=== PATIENT | male | born 1945 | race Caucasian/White ===

== ENCOUNTER 2020-01-18 10:34 | Outpatient (REF) | payer MEDICARE, SELFPAY ==
--- NOTE | 2020-01-18 10:36 | XR_ITS ---
EXAMINATION: KNEE X-RAY CLINICAL INFORMATION: Post left knee replacement COMPARISON: Previous x-rays most recent September 2019. TECHNIQUE: Standing AP view of both knees and lateral view of the left knee FINDINGS: Left: There is a 3 component left knee replacement in satisfactory position. No fracture or dislocation is seen. There is a moderate joint effusion. There is evidence of mild atherosclerotic disease. Standing AP view of the right knee demonstrates degenerative change at the medial femoral tibial joint. XR/XR knee LT 2V IMPRESSION: Left: Satisfactory appearance of left knee replacement. Moderate joint effusion. Right: Degenerative changes at the medial femoral tibial joint.
--- NOTE | 2020-01-18 10:36 | XR_ITS ---
EXAMINATION: KNEE X-RAY CLINICAL INFORMATION: Post left knee replacement COMPARISON: Previous x-rays most recent September 2019. TECHNIQUE: Standing AP view of both knees and lateral view of the left knee FINDINGS: Left: There is a 3 component left knee replacement in satisfactory position. No fracture or dislocation is seen. There is a moderate joint effusion. There is evidence of mild atherosclerotic disease. Standing AP view of the right knee demonstrates degenerative change at the medial femoral tibial joint. XR/XR knee standing BI IMPRESSION: Left: Satisfactory appearance of left knee replacement. Moderate joint effusion. Right: Degenerative changes at the medial femoral tibial joint.
== END 2020-01-18 10:35 | disposition home or self-care (01) ==
LOC: HO.HOSX 10:34
PROVIDERS: PCP Internal Medicine; Visit Provider Orthopaedic Surgery
DX: M25.562 Pain in left knee (principal); M25.561 Pain in right knee; Z96.652 Presence of left artificial knee joint
CPT/HCPCS: 73560; 73565; 99212

== ENCOUNTER → 2020-01-24 09:47 | Outpatient (BNVA) | payer MEDICARE, SELFPAY | PROVIDERS: PCP Internal Medicine; Referring Provider Internal Medicine; Visit Provider Internal Medicine | DX: J44.9 Chronic obstructive pulmonary disease, unspecified (principal); J30.9 Allergic rhinitis, unspecified; F17.210 Nicotine dependence, cigarettes, uncomplicated | CPT/HCPCS: 99212 ==

== ENCOUNTER 2020-04-24 09:06 | Outpatient (REF) | payer MEDICARE, SELFPAY ==
[2020-04-24 12:42] LABS: Alanine Aminotransferase 11 U/L (0-40); Albumin Level 4.2 g/dL (3.5-5.0); Alkaline Phosphatase 71 U/L (39-117); Anion Gap 12 (12-20); Aspartate Amino Transferase 17 U/L (5-37); Bilirubin Direct 0.4 mg/dL (0.0-0.5); Bilirubin Total 0.9 mg/dL (0.0-1.0); Blood Urea Nitrogen 10 mg/dL (9-16); C Reactive Protein 0.12 mg/dL (< or = 0.50); Calcium 9.1 mg/dL (8.4-10.2); Carbon Dioxide 27 mmol/L (22-29); Chloride 102 mmol/L (96-108); Cholesterol 174 mg/dL; Estimated Glomerular Filt Rate > 60; Glucose Random 95 mg/dL (60-115); HDL Cholesterol 51 mg/dL; LDL Cholesterol Calculated 109 mg/dl; Potassium 4.7 mmol/L (3.3-5.1); Sodium 136 mmol/L (135-145); Total Protein 6.9 g/dL (6.5-8.0); Triglycerides 73 mg/dL
== END 2020-04-24 09:07 | disposition home or self-care (01) ==
LOC: HO.HMGCLDS 09:06
PROVIDERS: PCP Internal Medicine; Visit Provider Internal Medicine
DX: J44.9 Chronic obstructive pulmonary disease, unspecified (principal)
CPT/HCPCS: 36415; 80048; 80061; 80076; 86140

== ENCOUNTER → 2020-04-25 08:57 | Outpatient (BNVA) | payer MEDICARE, SELFPAY | PROVIDERS: PCP Internal Medicine; Visit Provider Orthopaedic Surgery | DX: Z47.1 Aftercare following joint replacement surgery (principal); Z96.652 Presence of left artificial knee joint | CPT/HCPCS: 99212 ==

== ENCOUNTER 2020-06-19 11:40 | Outpatient (REF) | payer MEDICARE, SELFPAY ==
--- NOTE | ~2020-06-19 | XR_ITS ---
EXAMINATION: XR SINUSES CLINICAL INFORMATION: Sinusitis COMPARISON: None TECHNIQUE: Calixto, Nieves, lateral, and SMV views of the sinuses FINDINGS: Paranasal sinuses appear clear without air-fluid levels. No fractures are identified. No radiodense foreign bodies. The mastoid air cells appear well-aerated. XR/XR sinus min 3V IMPRESSION: The paranasal sinuses appear clear.
== END 2020-06-19 11:41 | disposition home or self-care (01) ==
LOC: HO.XRAY 11:40
PROVIDERS: PCP Internal Medicine; Visit Provider Otolaryngology
DX: J32.9 Chronic sinusitis, unspecified (principal)
CPT/HCPCS: 70220

== ENCOUNTER → 2020-07-24 10:03 | Outpatient (BNVA) | payer MEDICARE, SELFPAY | PROVIDERS: PCP Internal Medicine; Visit Provider Internal Medicine | DX: J44.9 Chronic obstructive pulmonary disease, unspecified (principal); J30.9 Allergic rhinitis, unspecified; F17.200 Nicotine dependence, unspecified, uncomplicated; Z71.6 Tobacco abuse counseling; Z79.899 Other long term (current) drug therapy | CPT/HCPCS: 99212 ==

== ENCOUNTER 2020-08-08 07:28 | Outpatient (REF) | payer MEDICARE, SELFPAY ==
--- NOTE | ~2020-08-08 | XR_ITS ---
EXAMINATION: KNEE X-RAY CLINICAL INFORMATION: Knee replacement. COMPARISON: Previous x-ray January 2020 TECHNIQUE: Standing AP view of both knees and lateral view of the left knee FINDINGS: Left knee: There is a 3 component left knee replacement in satisfactory position. No fracture or dislocation is seen. There is a small to moderate joint effusion. Standing AP view of the right knee demonstrates joint space narrowing at the medial femoral tibial joint and degenerative meniscal calcification. XR/XR knee LT 2V IMPRESSION: Satisfactory appearance of left knee replacement.
--- NOTE | ~2020-08-08 | XR_ITS ---
EXAMINATION: KNEE X-RAY CLINICAL INFORMATION: Knee replacement. COMPARISON: Previous x-ray January 2020 TECHNIQUE: Standing AP view of both knees and lateral view of the left knee FINDINGS: Left knee: There is a 3 component left knee replacement in satisfactory position. No fracture or dislocation is seen. There is a small to moderate joint effusion. Standing AP view of the right knee demonstrates joint space narrowing at the medial femoral tibial joint and degenerative meniscal calcification. XR/XR knee standing BI IMPRESSION: Satisfactory appearance of left knee replacement.
== END 2020-08-08 07:29 | disposition home or self-care (01) ==
LOC: HO.HOSX 07:28
PROVIDERS: Visit Provider Orthopaedic Surgery
DX: M25.562 Pain in left knee (principal); M25.561 Pain in right knee; J44.9 Chronic obstructive pulmonary disease, unspecified; C61 Malignant neoplasm of prostate; Z87.891 Personal history of nicotine dependence; Z96.652 Presence of left artificial knee joint; Z88.8 Allergy status to other drugs, medicaments and biological substances
CPT/HCPCS: 73560; 73565; 99212

== ENCOUNTER 2020-08-29 06:11 | Outpatient (REF) | payer MEDICARE, SELFPAY ==
[2020-08-29 11:57] LABS: Alanine Aminotransferase 13 U/L (0-40); Albumin Level 4.1 g/dL (3.5-5.0); Alkaline Phosphatase 68 U/L (39-117); Anion Gap 13 (12-20); Aspartate Amino Transferase 17 U/L (5-37); Bilirubin Total 0.6 mg/dL (0.0-1.0); Blood Urea Nitrogen 7 mg/dL (9-16); Calcium 9.1 mg/dL (8.4-10.2); Carbon Dioxide 25 mmol/L (22-29); Chloride 103 mmol/L (96-108); Cholesterol 165 mg/dL; Estimated Glomerular Filt Rate > 60; Glucose Fasting 91 mg/dL (60-99); HDL Cholesterol 54 mg/dL; LDL Cholesterol Calculated 93 mg/dl; Potassium 4.9 mmol/L (3.3-5.1); Sodium 136 mmol/L (135-145); Total Protein 6.6 g/dL (6.5-8.0); Triglycerides 92 mg/dL
[2020-08-29 12:29] LABS: TSH reflex Free T4 3.52 uIU/mL (0.32-4.0)
== END 2020-08-29 06:12 | disposition home or self-care (01) ==
LOC: HO.HMGCLDS 06:11
PROVIDERS: PCP Nurse Practitioner Family; Visit Provider Nurse Practitioner Family
DX: E78.5 Hyperlipidemia, unspecified (principal)
CPT/HCPCS: 36415; 80053; 80061; 84443

== ENCOUNTER 2020-09-08 08:18 | Outpatient (REF) | payer MEDICARE, SELFPAY ==
--- NOTE | ~2020-09-08 | XR_ITS ---
EXAMINATION: XR KNEE, LEFT CLINICAL INFORMATION: Pain in the right knee COMPARISON: Left knee radiographs on 08/08/2020 TECHNIQUE: AP standing views of the bilateral knees, lateral view of the left knee FINDINGS: Left knee: Postsurgical changes from prior left knee arthroplasty. No acute fracture or dislocation. Small suprapatellar joint effusion. Right knee: Mild medial compartment joint space narrowing. XR/XR knee standing BI IMPRESSION: Stable appearance of the left knee replacement.
--- NOTE | ~2020-09-08 | XR_ITS ---
EXAMINATION: XR KNEE, LEFT CLINICAL INFORMATION: Pain in the right knee COMPARISON: Left knee radiographs on 08/08/2020 TECHNIQUE: AP standing views of the bilateral knees, lateral view of the left knee FINDINGS: Left knee: Postsurgical changes from prior left knee arthroplasty. No acute fracture or dislocation. Small suprapatellar joint effusion. Right knee: Mild medial compartment joint space narrowing. XR/XR knee LT 2V IMPRESSION: Stable appearance of the left knee replacement.
== END 2020-09-08 08:19 | disposition home or self-care (01) ==
LOC: HO.XRAY 08:18
PROVIDERS: PCP Nurse Practitioner Family; Visit Provider Orthopaedic Surgery
DX: M25.562 Pain in left knee (principal); M25.561 Pain in right knee; F17.210 Nicotine dependence, cigarettes, uncomplicated; Z96.652 Presence of left artificial knee joint
CPT/HCPCS: 20610; 73560; 73565; 99212; J1040

== ENCOUNTER → 2021-01-23 09:49 | Outpatient (BNVA) | payer MEDICARE, SELFPAY | PROVIDERS: PCP Nurse Practitioner Family; Visit Provider Internal Medicine | DX: J30.9 Allergic rhinitis, unspecified (principal); J44.9 Chronic obstructive pulmonary disease, unspecified; F17.200 Nicotine dependence, unspecified, uncomplicated | CPT/HCPCS: 99212 ==

== ENCOUNTER 2021-03-07 08:10 | Outpatient (REF) | payer MEDICARE, SELFPAY ==
--- NOTE | ~2021-03-07 | CT_ITS ---
EXAMINATION: CT CHEST SCREENING CLINICAL INFORMATION: Nicotine dependence. Current smoker, 2 PPD, 20-pack years. COMPARISON: Chest x-ray 03/15/2019. TECHNIQUE: Multidetector volumetric CT imaging of the chest is performed without contrast using low dose technique. Additional 2D coronal and sagittal reformatted images and axial 3D maximum intensity projection (MIP) images are generated on the CT workstation. This CT examination was performed using dose optimization techniques as appropriate, variously including the following: *Automated exposure control *Adjustment of mA and/or kV according to patient size (this includes techniques or standardized protocols for targeted exams where dose is matched to indication/reason for exam; i.e. extremities or head) *Use of iterative reconstruction technique DLP: 61 mGy-cm. FINDINGS: LUNGS: The lungs are hyperinflated with a subpleural 3 mm nodule right upper lobe axial image 18/4, ill-defined ground-glass nodule measuring 4 mm axial image 212/6, mild compressive atelectasis right lower lobe. MEDIASTINUM: The thyroid lobes are symmetric and normal. The central trachea and the bronchi widely patent. The heart size and the great vessels are normal caliber. There are coronary artery calcifications present. There is no pericardial effusion seen. PLEURA: There is no pleural effusion. No pleural mass or thickening. AXILLA: There are small shotty lymph nodes in the axilla. UPPER ABDOMEN: Visualized liver, spleen and bilateral adrenal glands are unremarkable. There is a radiopaque gallstone with a soft tissue mass in the mid segment with the solid lesion appearing 1.76 cm. OSSEOUS STRUCTURES: No lytic or sclerotic process seen. There is mild ventral spondylosis. CT/CT lung screening IMPRESSION: Hyperinflated lungs with small nodules. No abnormal mediastinal adenopathy. ASSESSMENT: Lung-RADS category 2: Benign RECOMMENDATION: Low-dose annual CT chest
== END 2021-03-07 08:11 | disposition home or self-care (01) ==
LOC: HO.CT 08:10
PROVIDERS: Visit Provider Physician Assistant Medical
DX: Z12.2 Encounter for screening for malignant neoplasm of respiratory organs (principal); F17.210 Nicotine dependence, cigarettes, uncomplicated
CPT/HCPCS: 71271

== ENCOUNTER 2021-03-29 07:21 | Outpatient (REF) | payer MEDICARE, SELFPAY ==
--- NOTE | ~2021-03-29 | XR_ITS ---
EXAMINATION: XR KNEE, LEFT CLINICAL INFORMATION: Left knee pain COMPARISON: September 08, 2020 TECHNIQUE: Three views of the left knee. FINDINGS: Patient is status post left total knee arthroplasty. Prosthetic components appear in good position. No acute fracture or dislocation is evident. No significant effusion is seen. No evidence of prosthetic loosening. XR/XR knee LT 3V IMPRESSION: Status post left total knee arthroplasty without significant abnormality appreciated.
[2021-03-29 11:21] LABS: MANUAL DIFF FLAG NO
[2021-03-29 11:26] LABS: Basophils Percent Auto 0.3 % (0-2); Eosinophils Absolute Auto 0.1 X10*3/uL (0.0-0.4); Eosinophils Percent Auto 1.6 % (0-4); Hematocrit 44.5 % (42.0-52.0); Hemoglobin 14.8 g/dl (14.0-18.0); Imm Gran Abs Auto 0.03 X10*3/uL (0.00-0.03); Imm Gran Pct Auto 0.3 % (0.0-0.4); Lymphocytes Absolute Auto 2.4 X10*3/uL (1.2-4.9); Lymphocytes Percent Auto 26.9 % (20-40); Mean Corpuscular HGB Conc 33.3 g/dl (31.0-36.0); Mean Corpuscular Volume 96.3 fL (80.0-98.0); Mean Platelet Volume 8.9 fL (9.4-12.4); Monocytes Absolute Auto 0.9 X10*3/uL (0.1-1.2); Monocytes Percent Auto 9.6 % (2-11); Neutrophils Absolute Auto 5.4 x10*3/uL (2.0-8.3); Neutrophils Percent Auto 61.3 % (45-73); Platelet Count 345 X10*3/uL (160-400); Red Blood Count 4.62 X10*6/uL (4.60-5.80); White Blood Count 8.9 X10*3/uL (4.8-10.8)
[2021-03-29 11:36] LABS: Appearance Urine CLEAR; Color Urine YELLOW; Glucose Urine UA NEG (NEG); Leukocyte Esterase Urine NEG (NEG); Nitrite Urine NEG (NEG); Urine Blood NEG (NEG); Urine Ketones NEG (NEG); Urine Protein NEG (NEG-TRACE)
[2021-03-29 12:05] LABS: Alanine Aminotransferase 12 U/L (0-40); Alkaline Phosphatase 67 U/L (39-117); Anion Gap 11 (12-20); Aspartate Amino Transferase 18 U/L (5-37); Bilirubin Total 0.6 mg/dL (0.0-1.0); Blood Urea Nitrogen 11 mg/dL (9-16); Calcium 9.4 mg/dL (8.4-10.2); Carbon Dioxide 27 mmol/L (22-29); Chloride 102 mmol/L (96-108); Cholesterol 171 mg/dL; Estimated Glomerular Filt Rate > 60; Glucose Fasting 99 mg/dL (60-99); HDL Cholesterol 50 mg/dL; LDL Cholesterol Calculated 103 mg/dl; Potassium 4.6 mmol/L (3.3-5.1); Sodium 135 mmol/L (135-145); Total Protein 6.7 g/dL (6.5-8.0); Triglycerides 92 mg/dL
[2021-03-29 12:19] LABS: TSH reflex Free T4 3.78 uIU/mL (0.32-4.0)
== END 2021-03-29 07:22 | disposition home or self-care (01) ==
LOC: HO.HMGCLDS 07:21
PROVIDERS: PCP Nurse Practitioner Family; Visit Provider Nurse Practitioner Family
DX: M25.562 Pain in left knee (principal); I10 Essential (primary) hypertension
CPT/HCPCS: 36415; 73562; 80053; 80061; 81003; 84443; 85025

== ENCOUNTER → 2021-06-18 08:29 | Outpatient (BNVA) | payer MEDICARE, SELFPAY | PROVIDERS: PCP Nurse Practitioner Family; Referring Provider Nurse Practitioner Family; Visit Provider Internal Medicine | DX: I35.8 Other nonrheumatic aortic valve disorders (principal); I44.0 Atrioventricular block, first degree; R07.2 Precordial pain | CPT/HCPCS: 99202 ==

== ENCOUNTER → 2021-07-25 10:25 | Outpatient (BNVA) | payer MEDICARE, SELFPAY | PROVIDERS: PCP Nurse Practitioner Family; Visit Provider Internal Medicine | DX: J44.9 Chronic obstructive pulmonary disease, unspecified (principal); J30.9 Allergic rhinitis, unspecified; F17.210 Nicotine dependence, cigarettes, uncomplicated | CPT/HCPCS: 99212 ==

== ENCOUNTER → 2021-07-26 08:18 | Outpatient (REF) | payer MEDICARE, SELFPAY ==
--- NOTE | 2021-07-26 08:24 | CA_ITS ---
Transthoracic Echocardiogram Patient (Last, First, Middle): [place] Briscoe T Gender: Male Date of : 1945 Age: 75 Procedure Date: 07/26/2021 Procedure Type: Transthoracic Echocardiogram Location: OP Height: 172.72 cm Weight: 80.74 kg BSA: 1.95 m2 Heart Rate: bpm BP: 167 / 72 mmHg Rotary Drum Dyer: YON Referring MD: De Barclay MD Rn Unit Manager: Clyde Guerra MD Symptoms: R01.1 - Cardiac murmur, unspecified Study Quality: Adequate ECG Rhythm: Bradycardia Conclusions: - 1. Normal LV systolic function 2. Normal cardiac valvular Doppler 3. Normal RV systolic pressure 4. No pericardial effusion Findings Left Ventricle Normal left ventricular size, thickness, and systolic function. The visually estimated ejection fraction is between 60-65%. Spectral Doppler is indicative of a normal filling pattern. Peak GLS is -20.2%. Right Ventricle Normal right ventricular cavity size and systolic function. Atria The left atrium is likely dilated. There is no evidence of interatrial shunt. The right atrium is normal in size. Aortic Valve There is mild calcification of the aortic valve. There is no aortic valve stenosis. The mean gradient is 4 mmHg. There is no aortic valve regurgitation. Mitral Valve Normal mitral valve structure and function. There is trace mitral valve regurgitation. There is no mitral valve stenosis. Pulmonic Valve The pulmonic valve was not well visualized. Tricuspid Valve Likely normal tricuspid valve structure and function. There is trace tricuspid valve regurgitation. The right ventricular systolic pressure is normal. The right ventricular systolic pressure is 26 mmHg. Normal right atrial pressure. Great Vessels All visible segments of the aorta are normal in size. The pulmonary artery was not well visualized. Venous The inferior vena cava is normal in size and collapses greater than 50% with inspiration. Pericardium/Pleural There is no evidence of pericardial effusion. Prior Study Comparison No prior study available for comparison. Measurements 2D Linear Measurements IVSd: 0.81 0.6-0.9/0.6-1.0 cm LVIDd: 4.90 3.9-5.3/4.2-5.9 cm LVIDd Index: 2.51 2.4-3.2/2.2-3.1 cm/m2 LVIDs: 2.70 2.0-3.6 cm LVPWd: 0.79 0.7-1.1 cm LA Diam: 3.20 2.7-3.8/3.0-4.0 cm LAIDs Index: 1.64 1.5-2.3 cm/m2 LV Mass: 162.86 67-162/88-224 g LV Mass Index: 83.52 43-95/49-115 g/m2 LVOT Diam: 2.20 3.0+(-)1.3 cm 2D Systolic Function EF 4C: 61.90 >55% EF 2C: 61.00 >55% EF BiP: 61.00 >55% Mitral Valve MV Pk E: 0.89 MV PK A: 0.49 MV Decel Time: 199.00 E/A: 1.80 E'Lateral: 8.38 E'Medial: 7.72 E/E' Med: 11.50 E/E' Lat: 10.60 PHT: 58.00 MVA PHT: 3.79 Decel Sutter: 4.48 Aortic Valve AoV Pk Jesse: 1.35 AoV Mn Jesse: 0.93 AoV VTI: 0.30 AoV Pk Grad: 7.00 Aov Mn Grad: 4.00 ZACKERY Cont.VTI: 3.91 LVOT LVOT Pk Jesse: 1.42 LVOT Mn Jesse: 1.04 LVOT VTI: 0.31 LVOT Pk Grad: 8.00 LVOT Mn Grad: 5.00 LVOT Diam: 2.20 LVOT Area: 3.80 Diastolic Function MV Pk E: 0.89 MV Pk A: 0.49 E/A: 1.80 E'Medial: 7.72 E/E' Med: 11.50 E' Laterial: 8.38 E/E' Lat: 10.60 Right Ventricle TAPSE (mm): 26.40 TVS' Jesse: 11.90 Tricuspid Valve TR Pk Jesse: 2.38 TR Pk Grad: 23.00 RA Press: 3.00 RVSP: 26.00 Great Vessels Aorta Sinus of Valsalva: 3.48 2.0-3.[address] Ridge: 3.16 1.7-3.4 cm Ao Asc: 3.00 2.1-3.4 cm Pulmonary Veins Pulm Vein S/D 1.30 Pulmonary Valve PV Pk Jesse: 1.41 Peak PV Grad: 8.00 Updated in Other Vendor System with Status of Final Clyde Guerra MD electronically signed on 07/27/2021 4:06:01 PM with status of Final
== END ==
LOC: HO.CARD 08:18
PROVIDERS: PCP Nurse Practitioner Family; Visit Provider Nurse Practitioner Family
DX: R01.1 Cardiac murmur, unspecified (principal)
CPT/HCPCS: 93306; 93356

== ENCOUNTER → 2021-08-01 08:18 | Outpatient (REF) | payer MEDICARE, SELFPAY ==
--- NOTE | ~2021-08-01 | NM_ITS ---
Myocardial perfusion study Indication: Precordial chest pain to evaluate for myocardial ischemia Technique: The patient was brought in for a Lexiscan perfusion study on 08/01/2021. Patient performed low-level exercise and was injected 0.4 mg of Lexiscan intravenously. Within a minute of injection, 25 mCi of sestamibi was given intravenously. Images were obtained using the SPECT gamma camera interlaced with the gating device. Images were obtained in supine position. Resting perfusion study was performed on 08/02/2021. Patient was administered 25 mCi of sestamibi intravenously at rest. Images were then obtained in supine position. Images obtained with and without CT attenuation. Total DLP 78 mGy-cm. Images were processed with the software and compared side to side in short axis, horizontal long axis and vertical long axis views. Findings: The stress perfusion study showed non attenuated images show mildly reduced uptake in the inferior wall of the LV myocardium. Remainder of the LV myocardium is normally perfused. Attenuation corrected images show minimally reduced uptake in the apex of the LV myocardium. Remainder of the LV myocardium on both. There is suggestion of left ventricular hypertrophy. The gated study shows normal LV systolic function with calculated LVEF of 57%. LV cavity is normal in size. The gated study shows normal systolic wall thickening and contraction of segments. Resting study shows no significant change in perfusion pattern compared to stress perfusion study. Gating at rest reveals normal systolic wall motion with ejection fraction at 55%. The findings are consistent with no clear reversible defect, oral findings are consistent with normal myocardial perfusion. NM/NM cardiolite stress test Impression: 1. Myocardial perfusion imaging study shows normal myocardial perfusion 2. Gated LVEF is 57% 3. Transient ischemic dilatation not present EKG is nondiagnostic for ischemia
--- NOTE | 2021-08-01 08:21 | CA_ITS ---
Acquisition Time: 2021-08-01 08:26:41 Total Exercise Time: 00:02:00 Test Indications: CHEST PAIN Medications: Protocol: LEXISCAN Max HR: 085 BPM 58% of Pred: 145 BPM Max BP: 148/076 mmHG Max Work Load: 1.0 METS Pharmacological stress test with Lexiscan injection, while sitting and kicking his legs, without anginal symptoms, without arrythmia, with nomotensive response to injection, with nondiagnostic EKG for ischemia. In recovery he reported fuzzy head and was treated with Aminophylline 75mg IVP to reverse Lexiscan with resolution of symptom. Nuclear images pending. Test reviewed with Dr Barclay. Referred By: De Barclay Overread By: LAURENT LOMBARDI
== END ==
LOC: HO.CARD 08:18
PROVIDERS: Visit Provider Internal Medicine
DX: R07.2 Precordial pain (principal)
CPT/HCPCS: 78452; 93017; A9500; J0280; J2785

== ENCOUNTER → 2021-08-21 10:02 | Outpatient (BNVA) | payer MEDICARE, SELFPAY | PROVIDERS: PCP Nurse Practitioner Family; Referring Provider Nurse Practitioner Family; Visit Provider Nurse Practitioner Family | DX: I44.0 Atrioventricular block, first degree (principal); R07.2 Precordial pain; I10 Essential (primary) hypertension; F17.210 Nicotine dependence, cigarettes, uncomplicated; Z79.899 Other long term (current) drug therapy | CPT/HCPCS: 99212; Q3014 ==

== ENCOUNTER 2021-11-05 06:49 | Outpatient (REF) | payer MEDICARE, SELFPAY ==
[2021-11-05 11:35] LABS: Appearance Urine Clear; Color Urine Yellow; Glucose Urine UA Negative (Negative); Leukocyte Esterase Urine Negative (Negative); Nitrite Urine Negative (Negative); Urine Blood Negative (Negative); Urine Ketones Negative (Negative); Urine Protein Negative (Neg-Trace)
[2021-11-05 12:07] LABS: Alanine Aminotransferase 14 U/L (0-40); Albumin Level 3.9 g/dL (3.5-5.0); Alkaline Phosphatase 61 U/L (39-117); Anion Gap 13 (12-20); Aspartate Amino Transferase 19 U/L (5-37); Bilirubin Total 0.8 mg/dL (0.0-1.0); Blood Urea Nitrogen 7 mg/dL (9-16); Calcium 9.3 mg/dL (8.4-10.2); Carbon Dioxide 25 mmol/L (22-29); Chloride 98 mmol/L (96-108); Cholesterol 157 mg/dL; Estimated Glomerular Filt Rate > 60; Glucose Fasting 93 mg/dL (60-99); HDL Cholesterol 58 mg/dL; LDL Cholesterol Calculated 87 mg/dl; Potassium 5.2 mmol/L (3.3-5.1); Sodium 131 mmol/L (135-145); Total Protein 6.5 g/dL (6.5-8.0); Triglycerides 62 mg/dL
[2021-11-05 12:14] LABS: TSH reflex Free T4 2.79 uIU/mL (0.32-4.0)
== END 2021-11-05 06:50 | disposition home or self-care (01) ==
LOC: HO.HMGCLDS 06:49
PROVIDERS: PCP Nurse Practitioner Family; Visit Provider Nurse Practitioner Family
DX: I10 Essential (primary) hypertension (principal)
CPT/HCPCS: 36415; 80053; 80061; 81003; 84443

== ENCOUNTER 2021-11-07 09:23 | Outpatient (REF) | payer MEDICARE, SELFPAY ==
[2021-11-07 11:54] LABS: Anion Gap 14 (12-20); Carbon Dioxide 24 mmol/L (22-29); Chloride 96 mmol/L (96-108); Potassium 4.8 mmol/L (3.3-5.1); Sodium 129 mmol/L (135-145)
== END 2021-11-07 09:24 | disposition home or self-care (01) ==
LOC: HO.HMGCLDS 09:23
PROVIDERS: PCP Nurse Practitioner Family; Visit Provider Nurse Practitioner Family
DX: E87.5 Hyperkalemia (principal); E87.1 Hypo-osmolality and hyponatremia
CPT/HCPCS: 36415; 80051

== ENCOUNTER → 2022-03-12 09:22 | Outpatient (BNVA) | payer MEDICARE, SELFPAY | PROVIDERS: PCP Nurse Practitioner Family; Referring Provider Nurse Practitioner Family; Visit Provider Internal Medicine | DX: I25.10 Atherosclerotic heart disease of native coronary artery without angina pectoris (principal); I10 Essential (primary) hypertension; I44.0 Atrioventricular block, first degree; F17.210 Nicotine dependence, cigarettes, uncomplicated | CPT/HCPCS: 93005; 99212 ==

== ENCOUNTER 2022-04-17 09:32 | Outpatient (REF) | payer MEDICARE, SELFPAY ==
[2022-04-17 11:21] LABS: Appearance Urine Clear; Color Urine Yellow; Glucose Urine UA Negative (Negative); Leukocyte Esterase Urine Negative (Negative); Nitrite Urine Negative (Negative); Urine Blood Negative (Negative); Urine Ketones Negative (Negative); Urine Protein Negative (Neg-Trace)
[2022-04-17 11:24] LABS: MANUAL DIFF FLAG NO
[2022-04-17 11:36] LABS: Basophils Percent Auto 0.2 % (0-2); Eosinophils Absolute Auto 0.1 X10*3/uL (0.0-0.4); Eosinophils Percent Auto 0.4 % (0-4); Hemoglobin 14.5 g/dl (14.0-18.0); Imm Gran Abs Auto 0.11 X10*3/uL (0.00-0.03); Imm Gran Pct Auto 0.7 % (0.0-0.4); Lymphocytes Absolute Auto 2.1 X10*3/uL (1.2-4.9); Lymphocytes Percent Auto 14.1 % (20-40); Mean Corpuscular HGB Conc 33.7 g/dl (31.0-36.0); Mean Corpuscular Hemoglobin 32.6 pg (27.0-33.0); Mean Corpuscular Volume 96.6 fL (80.0-98.0); Mean Platelet Volume 8.3 fL (9.4-12.4); Monocytes Absolute Auto 1.4 X10*3/uL (0.1-1.2); Monocytes Percent Auto 9.3 % (2-11); Neutrophils Absolute Auto 11.3 x10*3/uL (2.0-8.3); Neutrophils Percent Auto 75.3 % (45-73); Platelet Count 353 X10*3/uL (160-400); Red Blood Count 4.45 X10*6/uL (4.60-5.80); Red Cell Distribution Width 11.8 % (11.0-16.0)
[2022-04-17 12:20] LABS: Alanine Aminotransferase 15 U/L (0-40); Albumin Level 4.1 g/dL (3.5-5.0); Alkaline Phosphatase 82 U/L (39-117); Anion Gap 12 (12-20); Aspartate Amino Transferase 18 U/L (5-37); Bilirubin Total 0.9 mg/dL (0.0-1.0); Blood Urea Nitrogen 12 mg/dL (9-16); Calcium 9.4 mg/dL (8.4-10.2); Carbon Dioxide 27 mmol/L (22-29); Chloride 96 mmol/L (96-108); Cholesterol 170 mg/dL; Estimated Glomerular Filt Rate > 60; Glucose Fasting 105 mg/dL (60-99); HDL Cholesterol 52 mg/dL; LDL Cholesterol Calculated 98 mg/dl; Potassium 4.1 mmol/L (3.3-5.1); Sodium 131 mmol/L (135-145); TSH reflex Free T4 2.85 uIU/mL (0.32-4.0); Total Protein 6.6 g/dL (6.5-8.0); Triglycerides 103 mg/dL
[2022-04-17 12:23] LABS: PSA,Total (Free>4and<10) 16.75 ng/mL (0.00-4.00)
== END 2022-04-17 09:33 | disposition home or self-care (01) ==
LOC: HO.HMGCLDS 09:32
PROVIDERS: PCP Nurse Practitioner Family; Visit Provider Nurse Practitioner Family
DX: Z12.5 Encounter for screening for malignant neoplasm of prostate (principal); C61 Malignant neoplasm of prostate; E78.5 Hyperlipidemia, unspecified; F17.200 Nicotine dependence, unspecified, uncomplicated
CPT/HCPCS: 36415; 80053; 80061; 81003; 84153; 84443; 85025

== ENCOUNTER 2022-04-18 08:02 | Outpatient (REF) | payer MEDICARE, SELFPAY ==
--- NOTE | ~2022-04-18 | XR_ITS ---
EXAMINATION: XR CHEST CLINICAL INFORMATION: Elevated white blood cell count COMPARISON: CT chest 03/07/2021 and chest radiograph 03/15/2019 TECHNIQUE: 2 views of the chest were obtained. FINDINGS: Again noted are hyperinflated lungs compatible with COPD. No infiltrates, effusions or lung masses are seen. The small pulmonary micronodules seen on the CT scan are beyond the resolution of plain film radiograph. Mild degenerative changes are present in the spine. No bony destructive lesions. XR/XR chest 2V IMPRESSION: COPD. No acute intrathoracic disease.
[2022-04-18 12:06] LABS: Osmolality, Serum 272 mosm/kg (281-305)
[2022-04-18 12:17] LABS: Osmolality Urine 399 mosm/kg (373-1093)
== END 2022-04-18 08:03 | disposition home or self-care (01) ==
LOC: HO.HMGCX 08:02
PROVIDERS: PCP Nurse Practitioner Family; Visit Provider Nurse Practitioner Family
DX: E87.1 Hypo-osmolality and hyponatremia (principal); D72.829 Elevated white blood cell count, unspecified
CPT/HCPCS: 36415; 71046; 83930; 83935

== ENCOUNTER 2022-06-07 09:45 | Outpatient (REF) | payer MEDICARE, SELFPAY ==
--- NOTE | ~2022-06-07 | CT_ITS ---
EXAMINATION: LUNG CANCER SCREENING CT CHEST WITHOUT CONTRAST CLINICAL INFORMATION: Current smoker with 40 pack year history COMPARISON: CT chest dated 03/07/2021 CT abdomen/pelvis dated 06/25/2016 TECHNIQUE: Multidetector volumetric CT imaging of the chest was obtained noncontrast using low dose screening CT technique. Axial thin section 0.625 mm reformations in soft tissue and lung windows were obtained. Sagittal and coronal reformations were obtained. Axial MIP images were also created and reviewed. This CT examination was performed using dose optimization techniques as appropriate, variously including the following: *Automated exposure control *Adjustment of mA and/or kV according to patient size (this includes techniques or standardized protocols for targeted exams where dose is matched to indication/reason for exam; i.e. extremities or head) *Use of iterative reconstruction technique TOTAL EXAM DLP: 61 mGy-cm. FINDINGS: PULMONARY NODULES (see camacho images): No suspicious pulmonary nodules. Calcified granuloma, right upper lobe. Stable punctate subpleural nodule in the posterior right upper lobe. LUNGS / PLEURA: Minimal emphysema. Diffuse mild bronchial wall thickening without bronchiectasis. Stable trace barium aspiration evident in the superior segment of the right lower lobe. No pleural effusion or pneumothorax. MEDIASTINUM / GERI: Heart normal in size without pericardial effusion. Great vessels normal caliber. No lymphadenopathy. Coronary calcifications present. Imaged thyroid gland unremarkable. CHEST WALL / AXILLA: Unremarkable. UPPER ABDOMEN: Cholelithiasis redemonstrated, with a incompletely calcified stone suspected in the gallbladder fundus. The appearance of the gallbladder this regard is unchanged since 2017, making a soft tissue mass unlikely. OSSEOUS STRUCTURES: No acute or suspicious osseous abnormalities. CT/CT lung screening IMPRESSION: * No evidence of pulmonary malignancy. * There are no pulmonary nodules that meet criteria for short interval follow-up at this time. ASSESSMENT: Lung RADS category: 2. Benign appearance or behavior. Nodules with a very low likelihood of becoming a clinically active cancer due to size or lack of growth. Continue annual screening with low-dose CT in 12 months. Probability of malignancy less than 1%. INCIDENTAL FINDINGS (S CATEGORY): None. RECOMMENDATION: Follow up low dose CT chest in 1 year.
== END 2022-06-07 09:46 | disposition home or self-care (01) ==
LOC: HO.CT 09:45
PROVIDERS: PCP Nurse Practitioner Family; Visit Provider Physician Assistant Medical
DX: Z12.2 Encounter for screening for malignant neoplasm of respiratory organs (principal); F17.210 Nicotine dependence, cigarettes, uncomplicated
CPT/HCPCS: 71271

== ENCOUNTER → 2022-08-13 10:50 | Outpatient (BNVA) | payer MEDICARE, SELFPAY | PROVIDERS: PCP Nurse Practitioner Family; Visit Provider Internal Medicine | DX: J44.9 Chronic obstructive pulmonary disease, unspecified (principal); J30.9 Allergic rhinitis, unspecified; F17.210 Nicotine dependence, cigarettes, uncomplicated; Z79.899 Other long term (current) drug therapy | CPT/HCPCS: 99212 ==

== ENCOUNTER 2022-10-15 09:26 | Outpatient (AMB) | payer MEDICARE, SELFPAY ==
--- NOTE | 2022-10-15 09:29 | A.OFFPC_ITS ---
Vital Signs 10/15/22 09:30 Height 5 ft 8 in Weight 173 lb 2 oz BMI 26.3 BP 130/72 Blood Pressure Location Lt brachial Position Sitting Pulse 59 Pulse Source Pulse Oximeter Pulse Oximetry (%) 95 Oxygen Delivery Method Room Air Intake Visit Reasons: 6 month follow up Allergies NICOTINE PATCH Adverse Reaction (Severe, Uncoded 10/15/22 09:32) REDNESS,BURNING Medication List - Last Reconciled 10/15/22 by Saroj Ortega, [facility]- amlodipine 5 mg PO DAILY atenolol 25 mg PO DAILY 90 days atorvastatin 20 mg PO BEDTIME 90 days montelukast 10 mg PO BEDTIME tamsulosin 0.4 mg PO BEDTIME Tobacco use date assessed: 10/15/22 Fall risk assessment: No Falls in past year Last assessed Fall Risk: 10/15/22 Dental Screening Dental Screen Date: 10/15/22 Did you have a dental visit in the last 12 months?: No Did you have a dental problem in the last 6 months where you did not have access to dental care?: No Was dental information given to patient?: Patient declined HPI 6 month follow up HPI Details HTN: Blood pressure is managed with amlodipine 5mg and atenolol 25mg. Dyslipidemia: On atorvastatin 20mg. Will order labs. Denies chest pain, shortness of breath, headache, dizziness, and blurred vision. [facility] Medical History (Updated 08/13/22 @ 11:43 by Dante Newton MD) Allergic rhinitis AV bloc first degree COPD (chronic obstructive pulmonary disease) Dyslipidemia HTN (hypertension) Nicotine dependence, cigarettes, uncomplicated Primary osteoarthritis of left knee Prostate cancer (~2018) Smoker Tubular adenoma of colon (~2010) Surgical History History of colonoscopy (~2010) History of partial colectomy (~2016) History of prostate biopsy (~2018) History of total left knee replacement (~2019) Status post lumbar microdiscectomy (~2002) Family History Mother Alzheimer disease Social History Housing: House Alcohol intake: current Alcohol intake frequency: 0-2 drinks per day Patient Tobacco Use Status: Current everyday Tobacco user Tobacco use type: Cigarette Cigarette Packs Per Day: 1 Years Smoked: 60 +/- e-Cigarette/Vaping Use: Never Used Second Hand Smoke Exposure: No service: No Current occupational status: retired Current occupation: Right Handed Cognitive needs: No Hearing needs: No Vision needs: No Questionnaire Thrive Questionnaire Date Thrive assessed: 11/15/21 TRAVIS-7 AMB Questionnaire TRAVIS-7 Date TRAVIS - 7 assessed: 11/15/21 Source: Developed by Drs. Beltran Ken, Kathy Lindo, Oleg Duong and colleagues, with an educational nithya from [employer]. Review of Systems Const Reports as per HPI Physical exam (Primary Care) Vital Signs: Last Vital Signs Pulse 59 10/15/22 09:30 BP 130/72 10/15/22 09:30 Pulse Ox 95 10/15/22 09:30 Oxygen Delivery Method Room Air 10/15/22 09:30 BMI result Body Mass Index 26.3 Tobacco/Smoking Status: Tobacco use Status Tobacco use date assessed 10/15/22 10/15/22 09:36 Patient Tobacco Use Status Current everyday Tobacco 10/15/22 09:36 Tobacco use type Cigarette 10/15/22 09:36 e-Cigarette/Vaping Use Never Used 10/15/22 09:36 Thrive Assessment: Date of Thrive Assessment Date Thrive assessed 11/15/21 10/15/22 09:36 Const General: cooperative Orientation/consciousness: patient oriented x3 Resp Effort & Inspection: normal respiratory effort Auscultation: diminished lung sounds Cardio Rate: regular rate Rhythm: regular rhythm Heart sounds: S1 normal heart sound present, S2 normal heart sound present and Murmur heart sound present systolic Neuro General: patient oriented x3 Extrem Right lower extremity: no edema Left lower extremity: no edema Psych Appearance: grossly normal Mental Status: mental status grossly normal Speech and movement: Normal speech and movement present Affect: normal affect Attitude: cooperative Thought process: Normal thought process present Thought content: Normal thought content present Insight: Good insight present (Psych) Judgement: Good judgement present (Psych) Assessment and Plan Assessment & Plan (1) HTN (hypertension): Code(s): I10 - Essential (primary) hypertension (2) Dyslipidemia: Code(s): E78.5 - Hyperlipidemia, unspecified Plan The patient agreed to the use of a certified medical assistant for this encounter. Scribed for Saroj Ortega, [facility]- by Delmis Sheth, certified medical assistant, on 10/15/2022 at 09:50 EST. Orders: Orders Comprehensive [place]. Panel Fast Today E78.5 - Hyperlipidemia, unspecified, I10 - Essential (primary) hypertension Lipid Panel Today E78.5 - Hyperlipidemia, unspecified, I10 - Essential (primary) hypertension TSH reflex Free T4 Today E78.5 - Hyperlipidemia, unspecified, I10 - Essential (primary) hypertension Complete Blood Count Auto Diff Today E78.5 - Hyperlipidemia, unspecified, I10 - Essential (primary) hypertension UA CC w/rflx Micro + Cult Today E78.5 - Hyperlipidemia, unspecified, I10 - Essential (primary) hypertension Coding Level of Care Code Est Pt Level 3 (55788) Diagnoses HTN (hypertension) I10 Dyslipidemia E78.5
[2022-10-15 09:30] VITALS: BP 130/72; PULSE 59; O2SAT 95; BMI 26.3
== END 2022-10-15 10:28 | disposition home or self-care (01) ==
PROVIDERS: Visit Provider Nurse Practitioner Family
DX: I10 Essential (primary) hypertension (principal); E78.5 Hyperlipidemia, unspecified
CPT/HCPCS: 99213

== ENCOUNTER 2022-10-16 06:12 | Outpatient (REF) | payer MEDICARE, SELFPAY ==
[2022-10-16 11:26] LABS: MANUAL DIFF FLAG NO
[2022-10-16 11:45] LABS: Appearance Urine Clear; Color Urine Yellow; Glucose Urine UA Negative (Negative); Leukocyte Esterase Urine Negative (Negative); Nitrite Urine Negative (Negative); Urine Blood Negative (Negative); Urine Ketones Negative (Negative); Urine Protein Negative (Neg-Trace)
[2022-10-16 11:48] LABS: Basophils Percent Auto 0.6 % (0-2); Eosinophils Absolute Auto 0.2 X10*3/uL (0.0-0.4); Hematocrit 36.3 % (42.0-52.0); Hemoglobin 12.2 g/dl (14.0-18.0); Imm Gran Abs Auto 0.04 X10*3/uL (0.00-0.03); Imm Gran Pct Auto 0.6 % (0.0-0.4); Lymphocytes Absolute Auto 1.7 X10*3/uL (1.2-4.9); Lymphocytes Percent Auto 23.8 % (20-40); Mean Corpuscular HGB Conc 33.6 g/dl (31.0-36.0); Mean Corpuscular Hemoglobin 31.6 pg (27.0-33.0); Mean Platelet Volume 8.4 fL (9.4-12.4); Monocytes Absolute Auto 0.8 X10*3/uL (0.1-1.2); Monocytes Percent Auto 11.7 % (2-11); Neutrophils Absolute Auto 4.2 x10*3/uL (2.0-8.3); Neutrophils Percent Auto 60.3 % (45-73); Platelet Count 342 X10*3/uL (160-400); Red Blood Count 3.86 X10*6/uL (4.60-5.80); Red Cell Distribution Width 12.4 % (11.0-16.0); White Blood Count 6.9 X10*3/uL (4.8-10.8)
[2022-10-16 12:13] LABS: Alanine Aminotransferase 12 U/L (0-40); Albumin Level 3.7 g/dL (3.5-5.0); Alkaline Phosphatase 66 U/L (39-117); Anion Gap 13 (12-20); Aspartate Amino Transferase 18 U/L (5-37); Bilirubin Total 0.4 mg/dL (0.0-1.0); Blood Urea Nitrogen 14 mg/dL (9-16); Calcium 9.6 mg/dL (8.4-10.2); Carbon Dioxide 22 mmol/L (22-29); Chloride 104 mmol/L (96-108); Cholesterol 135 mg/dL; Estimated Glomerular Filt Rate > 60; Glucose Fasting 94 mg/dL (60-99); HDL Cholesterol 47 mg/dL; LDL Cholesterol Calculated 77 mg/dl; Potassium 4.8 mmol/L (3.3-5.1); Sodium 134 mmol/L (135-145); Total Protein 6.4 g/dL (6.5-8.0); Triglycerides 56 mg/dL
[2022-10-16 12:32] LABS: TSH reflex Free T4 3.96 uIU/mL (0.32-4.0)
== END 2022-10-16 06:13 | disposition home or self-care (01) ==
LOC: HO.HMGCLDS 06:12
PROVIDERS: PCP Nurse Practitioner Family; Visit Provider Nurse Practitioner Family
DX: E78.5 Hyperlipidemia, unspecified (principal); I10 Essential (primary) hypertension
CPT/HCPCS: 36415; 80053; 80061; 81003; 84443; 85025

== ENCOUNTER 2023-02-08 09:37 | Outpatient (AMB) | payer MEDICARE, SELFPAY ==
--- NOTE | 2023-02-08 10:28 | AM.OFFWIN_ITS ---
Intake Vital Signs 02/08/23 10:31 Height 5 ft 8 in Weight 81.193 kg BMI 27.2 BP 130/82 Blood Pressure Location Lt brachial Position Sitting Pulse 65 Pulse Source Pulse Oximeter Pulse Oximetry (%) 94 Oxygen Delivery Method Room Air Intake Visit Reasons: EP Rash spots all over body Intake Note: Patient here for rash all over body that has been present for about 1 week. Patient Tobacco Use Status: Current everyday Tobacco user Allergies NICOTINE PATCH Adverse Reaction (Severe, Uncoded 02/08/23 10:31) REDNESS,BURNING Do you need a note to return to daycare/school/sports/work: No HPI HPI Comments History of Present Illness Details 77-year-old male presents for a rash all over his body that he has had for approximately a week. He does report having radiation for prostate cancer, completed in August. He does not report any fevers, chills, sick contacts, travel outside of the country, or exposure to parasites. ON LICENSE OF [facility] Medical History (Updated 02/08/23 @ 10:51 by Jill Tom NP) Smoker Tubular adenoma of colon (~2010) Nicotine dependence, cigarettes, uncomplicated Dyslipidemia HTN (hypertension) AV bloc first degree Allergic rhinitis COPD (chronic obstructive pulmonary disease) Primary osteoarthritis of left knee Prostate cancer (~2018) Surgical History History of colonoscopy (~2010) History of prostate biopsy (~2018) History of partial colectomy (~2016) History of total left knee replacement (~2019) Status post lumbar microdiscectomy (~2002) Family History Mother Alzheimer disease Housing: House Alcohol intake: current Alcohol intake frequency: 0-2 drinks per day Patient Tobacco Use Status: Current everyday Tobacco user Tobacco use type: Cigarette Cigarette Packs Per Day: 1 Years Smoked: 60 +/- e-Cigarette/Vaping Use: Never Used Second Hand Smoke Exposure: No service: No Current occupational status: retired Current occupation: Right Handed Cognitive needs: No Hearing needs: No Vision needs: No Review of Systems Const Details: Constitutional: No Fever, No Chills ENT/Mouth: No Ear Pain, No Hoarseness, No sore throat Eyes: No Eye Pain, No Swelling, No Redness, No Foreign Body Cardiovascular: No Chest Pain, No SOB Respiratory: No Cough, No Dyspnea Gastrointestinal: No Nausea, No Vomiting, No Diarrhea, No abdominal Pain Genitourinary: No Dysuria, No Hematuria Musculoskeletal: No joint pain, No Myalgias, No Joint Swelling Skin: No Skin lacerations, positive full-body rash Neuro: No Weakness, No Numbness, No Paresthesias, No Dizziness, No Headache All systems reviewed & are unremarkable except as noted in HPI and below Physical Exam Vital Signs: Last Vital Signs Pulse 65 02/08/23 10:31 BP 130/82 02/08/23 10:31 Pulse Ox 94 02/08/23 10:31 Oxygen Delivery Method Room Air 02/08/23 10:31 BMI result Body Mass Index 27.2 Appearance: Alert. Oriented X3. No acute distress. Eyes: Pupils equal, round and reactive to light. ENT: Pharynx normal. Neck: Normal inspection. Neck supple. CVS: Normal heart rate and rhythm. Pulses normal. Respiratory: No respiratory distress. Breath sounds normal. Abdomen: Soft and point tenderness to the left of the umbilicus. No rigidity, rebound, no CVA tenderness. Skin: Skin warm and dry. Normal skin color. Normal skin turgor. Extremities: No lower extremity edema. Folliculitis throughout arms, legs, abdomen, chest and back. Neuro: No motor deficit. No sensory deficit. Assessment & Plan Assessment & Plan (1) Folliculitis: Code(s): L73.9 - Follicular disorder, unspecified Plan: 77-year-old male presents with full body folliculitis, spares his face and neck. Has been present for approximately 1 week, and has been waking up due to itching. He has been using topical Benadryl and anti itching cream with last course of radiation was completed in August. While I do not feel that this rash is consistent with post radiation side effects, I do feel that this patient should follow-up with the oncologist to let them know that he does have this rash. Patient is afebrile, nontoxic, no edema. This rash is not consistent with scabies, zoster, varicella, syphilis, fldd-ulec-cmlds disease. This is most likely a folliculitis. Patient does not report any new personal care products or soaps or lotions. I will treat with cefuroxime for suspected staph infection. I did suggest p.o. Benadryl versus topical. Patient verbalized understanding of discharge instructions. Verbalized understandings of signs and symptoms indicating need for emergent intervention. Medications: New cefuroxime axetil 500 mg PO Q12H 7 days 14 tabs 0RF diphenhydramine HCl (Allergy (diphenhydramine)) 25 mg PO TID PRN 30 caps 1RF itching Patient Instructions: You were evaluated for a full-body skin rash consistent with folliculitis. Please take cefuroxime 500 mg every 12 hours for the next 7 days. Take Benadryl 25 mg every 8 hours as needed for itching. You may take 50 mg of 25 mg is ineffective. Please pay attention to side effects of this medication. Drink plenty of fluids. Please follow-up with your oncologist, give them a call to update them that you have a full-body rash. Thank you for choosing this urgent care for evaluation. Please follow-up with primary care physician as needed. Return to the emergency department for any new, concerning, or worsening symptoms. Coding Level of Care Code Est Pt Level 3 (94764) Diagnoses Folliculitis L73.9
[2023-02-08 10:31] VITALS: BP 130/82; PULSE 65; O2SAT 94; BMI 27.2
== END 2023-02-08 11:03 | disposition home or self-care (01) ==
PROVIDERS: PCP Nurse Practitioner Family; Visit Provider Nurse Practitioner Family
DX: L73.9 Follicular disorder, unspecified (principal)
CPT/HCPCS: 99213

== ENCOUNTER 2023-04-01 12:08 | Outpatient (AMB) | payer MEDICARE, SELFPAY ==
[2023-04-01 12:36] VITALS: BP 118/66; PULSE 56; BMI 26.9
--- NOTE | 2023-04-01 12:36 | MHC.OFFVIS ---
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 In the past, seen regarding first-degree heart block on EKG. Chronic smoker, but apparently cut down a lot recently. Has COPD. Also has hypertension, dyslipidemia. Overall, he is doing fine. No complaints from cardiac like angina or in fact anything else of concern. [facility] Medical History (Updated 04/01/23 @ 13:50 by De Barclay MD) Smoker Tubular adenoma of colon (~2010) Nicotine dependence, cigarettes, uncomplicated Dyslipidemia HTN (hypertension) AV bloc first degree Allergic rhinitis COPD (chronic obstructive pulmonary disease) Primary osteoarthritis of left knee Prostate cancer (~2018) Surgical History History of colonoscopy (~2010) History of prostate biopsy (~2018) History of partial colectomy (~2016) History of total left knee replacement (~2019) Status post lumbar microdiscectomy (~2002) Family History Mother Alzheimer disease Social History Housing: House Alcohol intake: current Alcohol intake frequency: 0-2 drinks per day Patient Tobacco Use Status: Current everyday Tobacco user Tobacco use type: Cigarette Cigarette Packs Per Day: 1 Years Smoked: 60 +/- e-Cigarette/Vaping Use: Never Used Second Hand Smoke Exposure: No service: No Current occupational status: retired Current occupation: Right Handed Cognitive needs: No Hearing needs: No Vision needs: No Review of Systems Const Denies weakness ENT Denies dizziness Card Denies chest pain, Denies chest pain with activity, Denies syncope, Denies rapid heart rate, Denies pedal edema, Denies edema, Denies leg edema, Denies lightheadedness, Denies palpitations, Denies dyspnea, Denies dyspnea on exertion and Denies orthopnea Resp Denies cough, Denies dyspnea and Denies dyspnea on exertion GI Denies hematochezia and Denies change in stool character Musc Denies abnormal gait, Denies muscle cramps, Denies muscle weakness, Denies numbness, Denies radiating pain into limb and Denies tingling Neuro Denies abnormal gait, Denies dizziness, Denies syncope, Denies numbness, Denies tingling and Denies weakness Endo Denies palpitations Physical Exam Vital Signs: Last Vital Signs Pulse 56 04/01/23 12:36 BP 118/66 04/01/23 12:36 BMI result Body Mass Index 26.9 Const General: comfortable and no acute distress Orientation/consciousness: patient oriented x3 HEENT Other: Unremarkable Head: Yes normal to inspection Neck Neck: Yes normal visual inspection Chest Chest palpation & inspection: normal inspection of the chest Resp Auscultation: clear to auscultation bilaterally Cardio Palpation: normal PMI Heart sounds: S1 normal heart sound present, S2 normal heart sound present, no gallops, no murmurs and no rubs GI Palpation (GI): Soft to palpation Back/Spine/Pelvis Other: unremarkable Skin General skin exam: no rashes or lesions noted Neuro General: patient oriented x3 Extrem General: Yes normal to inspection Psych Mental Status: mental status grossly normal Office Procedures EKG Details: EKG with sinus bradycardia at 56/Min; no significant ST-T changes and otherwise unremarkable[place] [id number], Complete Assessment & Plan Assessment & Plan (1) Atherosclerotic cardiovascular disease: Code(s): I25.10 - Atherosclerotic heart disease of [place] coronary artery without angina pectoris Plan: Ungated chest CT scan shows coronary artery calcifications. Lexiscan perfusion imaging shows normal perfusion. Echocardiogram with normal LVEF and normal peak global longitudinal strain. Clinically, no angina. Continue statins. Lipids well controlled. (2) HTN (hypertension): Code(s): I10 - Essential (primary) hypertension Qualifiers: Hypertension type: primary hypertension Qualified Code(s): I10 - Essential (primary) hypertension Plan: Stable. No changes. (3) AV bloc first degree: Code(s): I44.0 - Atrioventricular block, first degree Plan: Seems improved on the current EKG. Beta-joann dose has been decreased. (4) Smoker: Code(s): F17.200 - Nicotine dependence, unspecified, uncomplicated Plan: Still smokes a few cigarettes. Ideally, quit completely. Plan Total time spent including review of data, counseling, documentation, coordination of care-31 minutes. Coding Level of Care Code Est Pt Level 4 (45379) Diagnoses Atherosclerotic cardiovascular disease I25.10 Primary hypertension I10 Hypertension type: primary hypertension AV bloc first degree I44.0 Smoker F17.200 CPT Codes EKG - CPT: 17162-[id number], Complete ([id number])
== END 2023-04-01 12:50 | disposition home or self-care (01) ==
PROVIDERS: PCP Nurse Practitioner Family; Visit Provider Internal Medicine
DX: I25.10 Atherosclerotic heart disease of native coronary artery without angina pectoris (principal); I10 Essential (primary) hypertension; I44.0 Atrioventricular block, first degree; F17.200 Nicotine dependence, unspecified, uncomplicated
CPT/HCPCS: 93010; 99214

== ENCOUNTER → 2023-04-01 12:08 | Outpatient (BNVA) | payer MEDICARE, SELFPAY | PROVIDERS: PCP Nurse Practitioner Family; Visit Provider Internal Medicine | DX: I25.10 Atherosclerotic heart disease of native coronary artery without angina pectoris (principal); I10 Essential (primary) hypertension; I44.0 Atrioventricular block, first degree; F17.210 Nicotine dependence, cigarettes, uncomplicated; Z79.899 Other long term (current) drug therapy | CPT/HCPCS: 93005; 99212 ==

== ENCOUNTER 2023-04-17 08:35 | Outpatient (AMB) | payer MEDICARE, SELFPAY ==
--- NOTE | 2023-04-17 08:58 | MHC.PC.OV ---
Vital Signs 04/17/23 08:59 Height 5 ft 8 in Weight 176 lb 4 oz BMI 26.8 BP 142/88 H Blood Pressure Location Lt brachial Position Sitting Pulse 52 Pulse Source Pulse Oximeter Pulse Oximetry (%) 96 Oxygen Delivery Method Room Air Intake Visit Reasons: 6 month f/u Intake Note: Pt is here to follow up for HTN Allergies NICOTINE PATCH Adverse Reaction (Severe, Uncoded 04/17/23 09:01) REDNESS,BURNING Medication List - Last Reconciled 04/17/23 by RHONDA CalderaP- amlodipine 5 mg PO DAILY atenolol 25 mg PO DAILY 90 days atorvastatin 20 mg PO BEDTIME 90 days diphenhydramine HCl (Allergy (diphenhydramine)) 25 mg PO TID PRN montelukast 10 mg PO DAILY tamsulosin 0.4 mg PO BEDTIME Tobacco use date assessed: 04/17/23 Fall risk assessment: No Falls in past year Last assessed Fall Risk: 04/17/23 Dental Screening Dental Screen Date: 04/17/23 Did you have a dental visit in the last 12 months?: No Did you have a dental problem in the last 6 months where you did not have access to dental care?: No Was dental information given to patient?: No HPI 6 month f/u HPI Details HTN: Blood pressure is managed with amlodipine 5mg and atenolol 25mg. BP mostly up today because of back pain (pt can call for more injections). Will order labs. Dyslipidemia: On atorvastatin 20mg. Will order labs. Denies chest pain, shortness of breath, headache, dizziness, and blurred vision. Pt is following up with cardiology and pulmonology. [facility] Medical History (Updated 04/01/23 @ 13:50 by De Barclay MD) Smoker Tubular adenoma of colon (~2010) Nicotine dependence, cigarettes, uncomplicated Dyslipidemia HTN (hypertension) AV bloc first degree Allergic rhinitis COPD (chronic obstructive pulmonary disease) Primary osteoarthritis of left knee Prostate cancer (~2018) Surgical History History of colonoscopy (~2010) History of prostate biopsy (~2018) History of partial colectomy (~2016) History of total left knee replacement (~2019) Status post lumbar microdiscectomy (~2002) Family History Mother Alzheimer disease Social History Housing: House Alcohol intake: current Alcohol intake frequency: 0-2 drinks per day Patient Tobacco Use Status: Current everyday Tobacco user Tobacco use type: Cigarette Cigarettes Per Day: 4 Years Smoked: 60 +/- e-Cigarette/Vaping Use: Never Used Second Hand Smoke Exposure: No service: No Current occupational status: retired Current occupation: Right Handed Cognitive needs: No Hearing needs: No Vision needs: No Questionnaire PHQ-9 Over the last 2 weeks, how often have you been bothered by any of the following problems? 1. Little interest or pleasure in doing things: not at all 2. Feeling down, depressed, or hopeless: not at all 3. Trouble falling or staying asleep, or sleeping too much: more than half the days 4. Feeling tired or having little energy: more than half the days 5. Poor appetite or overeating: not at all 6. Feeling bad about yourself - or that you are a failure or have let yourself or your family down: not at all 7. Trouble concentrating on things, such as reading the newspaper or watching television: not at all 8. Moving or speaking so slowly that other people could have noticed. Or the opposite - being so fidgety or restless that you have been moving around a lot more than usual: not at all 9. Thoughts that you would be better off or of hurting yourself in some way: not at all Total score: 4 Source: Developed by Drs. Beltran Ken, Kathy Lindo, Oleg Duong and colleagues, with an educational nithya from [employer]. Thrive Questionnaire Date Thrive assessed: 04/17/23 I am a: Patient What is your living situation today?: I have a steady place to live Within the past 12 months, did the food you bought not last and you didn't have the money to get more?: Never true Within the past 12 months, did you worry whether your food would run out before you got money to buy more?: Never true Do you have trouble paying for medicines?: No Do you have trouble getting transportation to medical appointments?: No Do you have trouble paying your heating and electricity bill?: No Do you have trouble taking care of your child, family member or friend?: No Do you have trouble with day-to-day activities such as bathing, preparing meals, shopping, managing finances, etc.?: No Are you currently unemployed and looking for a job?: No Are you interested in more education?: No THRIVE Score: 0 AUDIT C Alcohol Use Questionnaire (AUDIT-C) 1. How often do you have a drink containing alcohol?: 4 or more times a week 2. How many drinks containing alcohol do you have on a typical day when you are drinking?: 1 or 2 3. How often do you have six or more drinks on one occasion?: Never Total Score: 4 TRAVIS-7 AMB Questionnaire TRAVIS-7 Date TRAVIS - 7 assessed: 04/17/23 Feeling nervous, anxious, or on edge: 2 = More than half the days Not being able to stop or control worryin = Not at all Worrying too much about different things: 2 = More than half the days Trouble relaxin = More than half the days Being so restless that it is hard to sit still: 0 = Not at all Becoming easily annoyed or irritable: 0 = Not at all Feeling afraid as if something awful might happen: 0 = Not at all Total TRAVIS-7 score (0-4 normal; 5-9 mild; 10-14 moderate; 15-21 severe): 6 Source: Developed by Drs. Beltran Ken, Kathy Lindo, Oleg Duong and colleagues, with an educational nithya from [employer] Review of Systems Const Reports as per HPI Physical exam (Primary Care) Vital Signs: Last Vital Signs Pulse 52 04/17/23 08:59 BP 142/88 H 04/17/23 08:59 Pulse Ox 96 04/17/23 08:59 Oxygen Delivery Method Room Air 04/17/23 08:59 BMI result Body Mass Index 26.8 Tobacco/Smoking Status: Tobacco use Status Tobacco use date assessed 04/17/23 04/17/23 09:05 Patient Tobacco Use Status Current everyday Tobacco 04/17/23 09:05 Tobacco use type Cigarette 04/17/23 09:05 e-Cigarette/Vaping Use Never Used 04/17/23 09:05 PHQ-9: PHQ-9 Score PHQ-9: Total score 4 04/17/23 09:18 Thrive Assessment: Date of Thrive Assessment Date Thrive assessed 04/17/23 04/17/23 09:07 Const General: cooperative Orientation/consciousness: patient oriented x3 Resp Other: lungs diminished, faint wheezes, moving air Effort & Inspection: normal respiratory effort Cardio Rate: regular rate Rhythm: regular rhythm Heart sounds: S1 normal heart sound present, S2 normal heart sound present and Murmur heart sound present systolic (faint) Neuro General: patient oriented x3 Extrem Right lower extremity: no edema Left lower extremity: no edema Psych Appearance: grossly normal Mental Status: mental status grossly normal Speech and movement: Normal speech and movement present Affect: normal affect Attitude: cooperative Thought process: Normal thought process present Thought content: Normal thought content present Insight: Good insight present (Psych) Judgement: Good judgement present (Psych) Assessment and Plan Assessment & Plan (1) Smoker: Code(s): F17.200 - Nicotine dependence, unspecified, uncomplicated Plan: In the low-dose CT program, seeing pulmonology (2) HTN (hypertension): Code(s): I10 - Essential (primary) hypertension Plan: Labs ordered (3) Dyslipidemia: Code(s): E78.5 - Hyperlipidemia, unspecified Plan: Labs ordered Plan The patient agreed to the use of a medical assisting program director for this encounter. Scribed for PENNY Glover by Delmis Sheth medical assisting program director, on 04/17/2023 at 09:20 EST. Orders: Orders Complete Blood Count Auto Diff Today E78.5 - Hyperlipidemia, unspecified, F17.200 - Nicotine dependence, unspecified, uncomplicated, I10 - Essential (primary) hypertension Comprehensive [place]. Panel Fast Today E78.5 - Hyperlipidemia, unspecified, F17.200 - Nicotine dependence, unspecified, uncomplicated, I10 - Essential (primary) hypertension UA CC w/rflx Micro + Cult Today E78.5 - Hyperlipidemia, unspecified, F17.200 - Nicotine dependence, unspecified, uncomplicated, I10 - Essential (primary) hypertension Lipid Panel Today E78.5 - Hyperlipidemia, unspecified, F17.200 - Nicotine dependence, unspecified, uncomplicated, I10 - Essential (primary) hypertension TSH reflex Free T4 Today E78.5 - Hyperlipidemia, unspecified, F17.200 - Nicotine dependence, unspecified, uncomplicated, I10 - Essential (primary) hypertension Coding Level of Care Code Est Pt Level 3 (15960) Diagnoses Smoker F17.200 HTN (hypertension) I10 Dyslipidemia E78.5
[2023-04-17 08:59] VITALS: BP 142/88; PULSE 52; O2SAT 96; BMI 26.8
== END 2023-04-17 10:46 | disposition home or self-care (01) ==
PROVIDERS: PCP Nurse Practitioner Family; Visit Provider Nurse Practitioner Family
DX: I10 Essential (primary) hypertension (principal); E78.5 Hyperlipidemia, unspecified; F17.210 Nicotine dependence, cigarettes, uncomplicated
CPT/HCPCS: 99213

== ENCOUNTER 2023-04-18 07:38 | Outpatient (REF) | payer MEDICARE, SELFPAY ==
[2023-04-18 11:47] LABS: MANUAL DIFF FLAG NO
[2023-04-18 11:52] LABS: Appearance Urine Clear; Color Urine Yellow; Glucose Urine UA Negative (Negative); Leukocyte Esterase Urine Negative (Negative); Nitrite Urine Negative (Negative); PH 6.5 (5.0-9.0); Urine Blood Negative (Negative); Urine Ketones Negative (Negative); Urine Protein Negative (Neg-Trace)
[2023-04-18 12:01] LABS: Basophils Percent Auto 0.4 % (0-2); Eosinophils Absolute Auto 0.3 X10*3/uL (0.0-0.4); Eosinophils Percent Auto 3.5 % (0-4); Hematocrit 37.1 % (42.0-52.0); Hemoglobin 12.6 g/dl (14.0-18.0); Imm Gran Abs Auto 0.02 X10*3/uL (0.00-0.03); Imm Gran Pct Auto 0.3 % (0.0-0.4); Lymphocytes Absolute Auto 1.7 X10*3/uL (1.2-4.9); Lymphocytes Percent Auto 23.4 % (20-40); Mean Corpuscular Hemoglobin 32.5 pg (27.0-33.0); Mean Corpuscular Volume 95.6 fL (80.0-98.0); Mean Platelet Volume 8.8 fL (9.4-12.4); Monocytes Absolute Auto 0.9 X10*3/uL (0.1-1.2); Monocytes Percent Auto 12.3 % (2-11); Neutrophils Absolute Auto 4.3 x10*3/uL (2.0-8.3); Neutrophils Percent Auto 60.1 % (45-73); Platelet Count 325 X10*3/uL (160-400); Red Blood Count 3.88 X10*6/uL (4.60-5.80); Red Cell Distribution Width 12.5 % (11.0-16.0); White Blood Count 7.2 X10*3/uL (4.8-10.8)
[2023-04-18 12:23] LABS: Alanine Aminotransferase 10 U/L (0-40); Alkaline Phosphatase 84 U/L (39-117); Anion Gap 12 (12-20); Aspartate Amino Transferase 15 U/L (5-37); Bilirubin Total 0.5 mg/dL (0.0-1.0); Blood Urea Nitrogen 10 mg/dL (9-16); Calcium 9.3 mg/dL (8.4-10.2); Carbon Dioxide 24 mmol/L (22-29); Chloride 103 mmol/L (96-108); Cholesterol 149 mg/dL (<200); Estimated Glomerular Filt Rate > 60; Glucose Fasting 88 mg/dL (60-99); HDL Cholesterol 50 mg/dL (>40); LDL Cholesterol Calculated 85 mg/dL (<100); Potassium 4.2 mmol/L (3.3-5.1); Sodium 135 mmol/L (135-145); Total Protein 6.8 g/dL (6.5-8.0); Triglycerides 70 mg/dL (<150)
[2023-04-18 12:28] LABS: TSH reflex Free T4 3.35 uIU/mL (0.32-4.0)
== END 2023-04-18 07:39 | disposition home or self-care (01) ==
LOC: HO.HMGCLDS 07:38
PROVIDERS: PCP Nurse Practitioner Family; Visit Provider Nurse Practitioner Family
DX: F17.200 Nicotine dependence, unspecified, uncomplicated (principal); I10 Essential (primary) hypertension; E78.5 Hyperlipidemia, unspecified
CPT/HCPCS: 36415; 80053; 80061; 81003; 84443; 85025

== ENCOUNTER 2023-10-16 08:31 | Outpatient (AMB) | payer MEDICARE, SELFPAY ==
--- NOTE | 2023-10-16 08:35 | MHC.PC.OV ---
Vital Signs 10/16/23 08:39 Height 5 ft 8 in Weight 174 lb BMI 26.5 BP 102/68 Blood Pressure Location Rt brachial Position Sitting Pulse 58 Pulse Source Pulse Oximeter Pulse Oximetry (%) 94 Oxygen Delivery Method Room Air Intake Visit Reasons: 6 Month follow up Intake Note: Patient here Allergies NICOTINE PATCH Adverse Reaction (Severe, Uncoded 10/16/23 09:26) REDNESS,BURNING Medication List - Last Reconciled 10/16/23 by PENNY Caldera amlodipine 5 mg PO DAILY atenolol 25 mg PO DAILY 90 days atorvastatin 20 mg PO BEDTIME 90 days diphenhydramine HCl (Allergy (diphenhydramine)) 25 mg PO TID PRN montelukast 10 mg PO DAILY tamsulosin 0.4 mg PO BEDTIME Tobacco use date assessed: 04/17/23 Fall risk assessment: No Falls in past year Last assessed Fall Risk: 10/16/23 Dental Screening Dental Screen Date: 04/17/23 HPI 6 Month follow up HPI Details HTN: Blood pressure is stable, managed with amlodipine 5mg and atenolol 25mg. Dyslipidemia: On atorvastatin 20mg. Will order labs. Deneis chest pain, increase in shortness of breath, headache, dizziness, and blurred vision. Pt follows up with cardiology. [facility] Medical History (Updated 10/16/23 @ 08:53 by PENNY Caldera) Smoker Tubular adenoma of colon (~2010) Nicotine dependence, cigarettes, uncomplicated Dyslipidemia HTN (hypertension) AV bloc first degree Allergic rhinitis COPD (chronic obstructive pulmonary disease) Primary osteoarthritis of left knee Prostate cancer (~2018) Surgical History History of colonoscopy (~2010) History of prostate biopsy (~2018) History of partial colectomy (~2016) History of total left knee replacement (~2019) Status post lumbar microdiscectomy (~2002) Family History Mother Alzheimer disease Social History Housing: House Alcohol intake: current Alcohol intake frequency: 0-2 drinks per day Patient Tobacco Use Status: Current everyday Tobacco user Tobacco use type: Cigarette Cigarettes Per Day: 4 Years Smoked: 60 +/- e-Cigarette/Vaping Use: Never Used Second Hand Smoke Exposure: No service: No Current occupational status: retired Current occupation: Right Handed Cognitive needs: No Hearing needs: No Vision needs: No Questionnaire PHQ-9 Over the last 2 weeks, how often have you been bothered by any of the following problems? 1. Little interest or pleasure in doing things: not at all 2. Feeling down, depressed, or hopeless: not at all 3. Trouble falling or staying asleep, or sleeping too much: not at all 4. Feeling tired or having little energy: not at all 5. Poor appetite or overeating: not at all 6. Feeling bad about yourself - or that you are a failure or have let yourself or your family down: not at all 7. Trouble concentrating on things, such as reading the newspaper or watching television: not at all 8. Moving or speaking so slowly that other people could have noticed. Or the opposite - being so fidgety or restless that you have been moving around a lot more than usual: not at all 9. Thoughts that you would be better off or of hurting yourself in some way: not at all Total score: 0 Depression Screening Interpretation: Negative Depression Screening Done: Yes 63747 - PHQ-9 Billing: Yes Source: Developed by Drs. Beltran Ken, Kathy Lindo, Oleg Duong and colleagues, with an educational nithya from [employer]. Thrive Questionnaire Date Thrive assessed: 04/17/23 I am a: Patient What is your living situation today?: I have a steady place to live Within the past 12 months, did the food you bought not last and you didn't have the money to get more?: I choose not to answer this question Within the past 12 months, did you worry whether your food would run out before you got money to buy more?: I choose not to answer this question Do you have trouble paying for medicines?: No Do you have trouble getting transportation to medical appointments?: No Do you have trouble paying your heating and electricity bill?: No Do you have trouble taking care of your child, family member or friend?: No Do you have trouble with day-to-day activities such as bathing, preparing meals, shopping, managing finances, etc.?: No Are you currently unemployed and looking for a job?: No Are you interested in more education?: No Please select the resources that you would like help with: Housing/Correction Currently or been in a relationship where the following occur: I choose not to answer THRIVE Score: 0 AUDIT C Alcohol Use Questionnaire (AUDIT-C) 1. How often do you have a drink containing alcohol?: 2-3 times a week 2. How many drinks containing alcohol do you have on a typical day when you are drinking?: 1 or 2 3. How often do you have six or more drinks on one occasion?: Never Total Score: 3 TRAVIS-7 AMB Questionnaire TRAVIS-7 Date TRAVIS - 7 assessed: 04/17/23 Source: Developed by Drs. Beltran Ken, Kathy Lindo, Oleg Duong and colleagues, with an educational nithya from [employer]. TRAVIS-7 Assessment Billing TRAVIS-7 Assessment Tool: pt declined-do not bill Review of Systems Const Reports as per HPI Physical exam (Primary Care) Vital Signs: Last Vital Signs Pulse 58 10/16/23 08:39 BP 102/68 10/16/23 08:39 Pulse Ox 94 10/16/23 08:39 Oxygen Delivery Method Room Air 10/16/23 08:39 BMI result Body Mass Index 26.5 Tobacco/Smoking Status: Tobacco use Status Tobacco use date assessed 04/17/23 10/16/23 08:36 Patient Tobacco Use Status Current everyday Tobacco 10/16/23 08:36 Tobacco use type Cigarette 10/16/23 08:36 e-Cigarette/Vaping Use Never Used 10/16/23 08:36 PHQ-9: PHQ-9 Score PHQ-9: Total score 0 10/16/23 08:43 Depression Screening Interpretation: Negative Thrive Assessment: Date of Thrive Assessment Date Thrive assessed 04/17/23 10/16/23 08:36 Currently or been in a relationship where the following occur: I choose not to answer Const General: cooperative Orientation/consciousness: patient oriented x3 Resp Other: scattered rhonchi Effort & Inspection: normal respiratory effort Auscultation: clear to auscultation bilaterally Neuro General: patient oriented x3 Psych Appearance: grossly normal Mental Status: mental status grossly normal Speech and movement: Normal speech and movement present Affect: normal affect Attitude: cooperative Thought process: Normal thought process present Thought content: Normal thought content present Insight: Good insight present (Psych) Judgement: Good judgement present (Psych) Assessment and Plan Assessment & Plan (1) HTN (hypertension): Code(s): I10 - Essential (primary) hypertension Plan: Stable, labs ordered (2) Dyslipidemia: Code(s): E78.5 - Hyperlipidemia, unspecified Plan: Labs ordered (3) Screening for prostate cancer: Code(s): Z12.5 - Encounter for screening for malignant neoplasm of prostate Plan: PSA ordered Plan The patient agreed to the use of a medical lab scientist for this encounter. Scribed for KENNA Glover-NOEL by Delmis Sheth medical lab scientist, on 10/16/2023 at 08:50 EST. Orders: Orders Complete Blood Count Auto Diff Today E78.5 - Hyperlipidemia, unspecified, I10 - Essential (primary) hypertension Comprehensive [place]. Panel Fast Today E78.5 - Hyperlipidemia, unspecified, I10 - Essential (primary) hypertension TSH reflex Free T4 Today E78.5 - Hyperlipidemia, unspecified, I10 - Essential (primary) hypertension UA CC w/rflx Micro + Cult Today E78.5 - Hyperlipidemia, unspecified, I10 - Essential (primary) hypertension Prostate Specific Antigen Scr Today Z12.5 - Encounter for screening for malignant neoplasm of prostate Lipid Panel Today E78.5 - Hyperlipidemia, unspecified, I10 - Essential (primary) hypertension Coding Level of Care Code Est Pt Level 3 (77419) Diagnoses HTN (hypertension) I10 Dyslipidemia E78.5 Screening for prostate cancer Z12.5
[2023-10-16 08:39] VITALS: BP 102/68; PULSE 58; O2SAT 94; BMI 26.5
== END 2023-10-16 08:59 | disposition home or self-care (01) ==
PROVIDERS: PCP Nurse Practitioner Family; Visit Provider Nurse Practitioner Family
DX: I10 Essential (primary) hypertension (principal); E78.5 Hyperlipidemia, unspecified; Z12.5 Encounter for screening for malignant neoplasm of prostate
CPT/HCPCS: 99213

== ENCOUNTER 2023-10-16 09:00 | Outpatient (REF) | payer MEDICARE, SELFPAY ==
[2023-10-16 10:06] LABS: MANUAL DIFF FLAG NO
[2023-10-16 10:09] LABS: Basophils Percent Auto 0.4 % (0-2); Eosinophils Absolute Auto 0.1 X10*3/uL (0.0-0.4); Eosinophils Percent Auto 1.3 % (0-4); Hematocrit 40.8 % (42.0-52.0); Hemoglobin 14.1 g/dl (14.0-18.0); Imm Gran Abs Auto 0.03 X10*3/uL (0.00-0.03); Imm Gran Pct Auto 0.4 % (0.0-0.4); Lymphocytes Absolute Auto 1.2 X10*3/uL (1.2-4.9); Lymphocytes Percent Auto 14.8 % (20-40); Mean Corpuscular HGB Conc 34.6 g/dl (31.0-36.0); Mean Corpuscular Volume 95.6 fL (80.0-98.0); Mean Platelet Volume 8.7 fL (9.4-12.4); Monocytes Absolute Auto 0.9 X10*3/uL (0.1-1.2); Monocytes Percent Auto 10.5 % (2-11); Neutrophils Absolute Auto 5.9 x10*3/uL (2.0-8.3); Neutrophils Percent Auto 72.6 % (45-73); Platelet Count 311 X10*3/uL (160-400); Red Blood Count 4.27 X10*6/uL (4.60-5.80); Red Cell Distribution Width 12.5 % (11.0-16.0); White Blood Count 8.2 X10*3/uL (4.8-10.8)
[2023-10-16 10:20] LABS: Appearance Urine Clear; Color Urine Yellow; Glucose Urine UA Negative (Negative); Leukocyte Esterase Urine Negative (Negative); Nitrite Urine Negative (Negative); Specific Gravity - Urine 1.015 (1.005-1.025); Urine Blood Negative (Negative); Urine Ketones Negative (Negative); Urine Protein Negative (Neg-Trace)
[2023-10-16 11:23] LABS: Alanine Aminotransferase 9 U/L (0-40); Albumin Level 4.1 g/dL (3.5-5.0); Alkaline Phosphatase 81 U/L (39-117); Anion Gap 11 (12-20); Aspartate Amino Transferase 16 U/L (5-37); Bilirubin Total 0.5 mg/dL (0.0-1.0); Blood Urea Nitrogen 9 mg/dL (9-16); Calcium 9.3 mg/dL (8.4-10.2); Carbon Dioxide 25 mmol/L (22-29); Chloride 101 mmol/L (96-108); Cholesterol 139 mg/dL (<200); Estimated Glomerular Filt Rate > 60; Glucose Fasting 100 mg/dL (60-99); HDL Cholesterol 53 mg/dL (>40); LDL Cholesterol Calculated 77 mg/dL (<100); Potassium 4.5 mmol/L (3.3-5.1); Sodium 132 mmol/L (135-145); Total Protein 6.9 g/dL (6.5-8.0); Triglycerides 48 mg/dL (<150)
[2023-10-16 11:27] LABS: Prostate Specific Antigen Scr 1.05 ng/mL (<0.05-4.0)
[2023-10-16 11:40] LABS: TSH reflex Free T4 3.82 uIU/mL (0.32-4.0)
== END 2023-10-16 09:01 | disposition home or self-care (01) ==
LOC: HO.HMGCLDS 09:00
PROVIDERS: PCP Nurse Practitioner Family; Visit Provider Nurse Practitioner Family
DX: I10 Essential (primary) hypertension (principal); E78.5 Hyperlipidemia, unspecified; Z12.5 Encounter for screening for malignant neoplasm of prostate
CPT/HCPCS: 36415; 80053; 80061; 81003; 84153; 84443; 85025

== ENCOUNTER 2023-11-24 13:28 | Outpatient (AMB) | payer MEDICARE, SELFPAY ==
[2023-11-24 13:49] VITALS: BP 120/68; PULSE 55; O2SAT 94; BMI 27.0
--- NOTE | 2023-11-24 13:49 | A.OFFVIS_ITS ---
Vital Signs 11/24/23 13:49 Height 5 ft 8 in Weight 177 lb 7.554 oz BMI 27.0 BP 120/68 Blood Pressure Location Lt brachial Position Sitting Pulse 55 Pulse Source Pulse Oximeter Pulse Oximetry (%) 94 Oxygen Delivery Method Room Air Intake Visit Reasons: copd Intake Note: pt is here for follow up copd Manager Market Intelligence Required: No Allergies NICOTINE PATCH Adverse Reaction (Severe, Uncoded 11/24/23 14:23) REDNESS,BURNING Medication List - Last Reconciled 11/24/23 by Dante Newton MD amlodipine 5 mg PO DAILY atenolol 25 mg PO DAILY 90 days atorvastatin 20 mg PO BEDTIME 90 days diphenhydramine HCl (Allergy (diphenhydramine)) 25 mg PO TID PRN montelukast 10 mg PO DAILY tamsulosin 0.4 mg PO BEDTIME Do you need a note to return to daycare/school/sports/work: No HPI HPI copd: Details: 78 YEARS OLD GENTLEMAN IS HERE AFTER 1 YEAR URGE FOR FOLLOW-UP FOR HIS MILD CHRONIC OBSTRUCTIVE PULMONARY DISEASE. HE ALSO HAS HISTORY OF CHRONIC ALLERGIC RHINITIS, WITH FREQUENT RUNNY NOSE. FOR HIS BREATHING HE WAS ADVISED TO USE ALBUTEROL INHALER 1 OR 2 PUFFS ONLY ONCE IN A WHILE NEEDED. HE CLAIMS THAT HE REALLY DOES NOT NEED TO USE THIS INHALER THAT OFTEN. HE DOES USE OTC ALLERGY PILL FOR HIS RUNNY NOSE. USED TO BE ON SINGULAIR 10 MG DAILY WHICH HE CLAIMS THAT HE IS NOT USING AT PRESENT. HIS COMPLAINTS ARE PERTAINING TO HIS BACK AND MANY PREVIOUS BACK SURGERIES WITH NUMB FEELING IN THE LEFT LOWER EXTREMITY, WELL PERIPHERAL VASCULAR DISEASE. HE HAS DEGENERATIVE ARTHRITIS IN MULTIPLE JOINTS. BREATHING GOYAL HE HAS ONLY MINIMAL SYMPTOMS. HE HAS TURNED 78 AND SO HE DOES NOT QUALIFY FOR LOW-DOSE CT SCAN. I DISCUSSED IF I SHOULD ORDER A REGULAR CT SCAN FOR HIM AND HE DOES NOT WANT TO HAVE IT. HE SAY , WHAT DIFFERENT DOES AT MAKE ? BECAUSE HE WILL NOT HAVE ANYTHING DONE ., [facility] Medical History Smoker Tubular adenoma of colon (~2010) Nicotine dependence, cigarettes, uncomplicated Dyslipidemia HTN (hypertension) AV bloc first degree Allergic rhinitis COPD (chronic obstructive pulmonary disease) Primary osteoarthritis of left knee Prostate cancer (~2018) Surgical History History of colonoscopy (~2010) History of prostate biopsy (~2018) History of partial colectomy (~2016) History of total left knee replacement (~2019) Status post lumbar microdiscectomy (~2002) Family History Mother Alzheimer disease Social History Housing: House Alcohol intake: current Alcohol intake frequency: 0-2 drinks per day Patient Tobacco Use Status: Current everyday Tobacco user Tobacco use type: Cigarette Cigarettes Per Day: 4 Years Smoked: 60 +/- e-Cigarette/Vaping Use: Never Used Second Hand Smoke Exposure: No service: No Current occupational status: retired Current occupation: Right Handed Cognitive needs: No Hearing needs: No Vision needs: No Review of Systems Const All systems reviewed & are unremarkable except as noted in HPI and below Eyes Reports no additional complaints ENT Reports nasal congestion (OFF AND ON ) and Reports nasal discharge (only in termittent ) Card Denies chest pain, Denies irregular heart rhythm and Denies leg edema Resp Reports as per HPI GI Reports no additional complaints Reports no additional complaints Musc Reports back pain, Reports arthralgias (Left knee pain and stiffness) and Reports numbness (Left leg below-knee) Skin/Breast Reports system reviewed and no additional complaints, except as documented Neuro Reports numbness (Left leg below-knee) Psych Reports no additional complaints Physical Exam Vital Signs: Last Vital Signs Pulse 55 11/24/23 13:49 BP 120/68 11/24/23 13:49 Pulse Ox 94 11/24/23 13:49 Oxygen Delivery Method Room Air 11/24/23 13:49 BMI result Body Mass Index 27.0 Const General: comfortable (But slow walking), no acute distress, alert and awake Orientation/consciousness: patient oriented x3 HEENT Head: Yes normal to inspection General nose exam: No nasal polyps present and No nasal discharge present Face and sinus: Yes sinuses nontender and Yes other (Has bilateral nasal congestion) Mouth: oropharynx normal Throat: Yes posterior oropharynx normal Eyes General: appearance normal, both eyes and all related structures Neck Neck: Yes normal visual inspection, Yes no lymphadenopathy, Yes trachea midline and Yes no JVD Thyroid: Thyroid normal Chest Chest palpation & inspection: normal inspection of the chest, normal palpation of entire chest wall and no tenderness Resp Other: PERCUSSION NOTE IS RESONANT. BREATH SOUNDS ARE DISTANT BUT EQUAL ON BOTH SIDES. NO AUDIBLE WHEEZES CREPITATIONS OR RHONCHI. Cardio Palpation: normal PMI Rate: regular rate Rhythm: regular rhythm Heart sounds: no gallops and no murmurs GI Palpation (GI): Soft to palpation, nontender, No hepatosplenomegaly present and no masses Auscultation: normal bowel sounds Back/Spine/Pelvis Thoracic/Lumbar Spine: thoracic and lumbar spine normal to inspection, thoraco- lumbar ROM limited and thoraco-lumbar spasm Skin General skin exam: no rashes or lesions noted Neuro General: patient oriented x3, No gait normal (Slow due to back pain and stiffness) and no focal motor deficits Cranial nerves: Yes CN's II-XII intact bilaterally Extrem General: Yes normal to inspection, Yes no clubbing, cyanosis or edema and Yes no calf tenderness Psych Speech and movement: Normal speech and movement present Assessment & Plan Assessment & Plan (1) COPD (chronic obstructive pulmonary disease): Comment: (Mild to Moderate COPD ) - somewhat increased symptoms of shortness of breath on minimal to moderate exertion. Advised to use ProAir two puffs Q four to six hours only p.r.n.. Code(s): J44.9 - Chronic obstructive pulmonary disease, unspecified Category: Medical Plan: OK TO USE ALBUTEROL 1 OR 2 PUFFS Q 6 HOURS BUT ONLY P.R.N. (2) Allergic rhinitis: Comment: CHRONIC, PERRENIAL , RELATIVELY CONTROLLED AT PRESENT . Code(s): J30.9 - Allergic rhinitis, unspecified Category: Medical Plan: [place] : CONTINUE TO USE SINGULAIR 10 MG DAILY , AND LORATDINE 10 MG OR LORATDINE -D ,ONCE ADAY , PRN ALTERNATIVELY MAY TRY ZYRTEC ( CETIRIZINE ) 10 MG ONCE A DAY, (3) Nicotine dependence, cigarettes, uncomplicated: Comment: (current smoker, 40+pyh, now 3-4 cig/day - in LDCT program) Code(s): F17.210 - Nicotine dependence, cigarettes, uncomplicated Category: Medical Plan: AGAIN TOLD HIM THAT HE SHOULD QUIT SMOKING COMPLETELY. HE PROBABLY WOULD CONTINUE TO SMOKE 1 OR 2 CIGARETTES A DAY. HE TURNED 78 HE IS NOT GOING TO QUALIFY FOR ANNUAL LUNG SCREENING PROGRAM. I DISCUSSED ABOUT HAVING A REGULAR CT SCAN, BUT HE DECLINED TO HAVE THIS. Coding Level of Care Code Est Pt Level 3 (25287) Diagnoses COPD (chronic obstructive pulmonary disease) J44.9 Allergic rhinitis J30.9 Nicotine dependence, cigarettes, uncomplicated F17.210
== END 2023-11-24 15:01 | disposition home or self-care (01) ==
PROVIDERS: PCP Nurse Practitioner Family; Visit Provider Internal Medicine
DX: J44.9 Chronic obstructive pulmonary disease, unspecified (principal); J30.9 Allergic rhinitis, unspecified; F17.210 Nicotine dependence, cigarettes, uncomplicated
CPT/HCPCS: 99213

== ENCOUNTER → 2023-11-24 13:28 | Outpatient (BNVA) | payer MEDICARE, SELFPAY | PROVIDERS: PCP Nurse Practitioner Family; Visit Provider Internal Medicine | DX: J44.9 Chronic obstructive pulmonary disease, unspecified (principal); J30.9 Allergic rhinitis, unspecified; F17.210 Nicotine dependence, cigarettes, uncomplicated | CPT/HCPCS: 99212 ==

== ENCOUNTER 2024-03-22 10:01 | Outpatient (AMB) | payer MEDICARE, SELFPAY ==
--- NOTE | 2024-03-22 11:21 | MHC.OFFWIV ---
Intake Vital Signs 03/22/24 11:23 Weight 180 lb BP 138/80 Blood Pressure Location Rt brachial Position Sitting Pulse 51 Pulse Source Pulse Oximeter Temp 97.6 F Temp Source Oral Pulse Oximetry (%) 97 Oxygen Delivery Method Room Air Intake Visit Reasons: EP cold, headache, cough, congested Intake Note: Patient here for cough,sneezing, head congestion and headache that has been present for about 1 month now. Patient Tobacco Use Status: Current everyday Tobacco user Allergies NICOTINE PATCH Adverse Reaction (Severe, Uncoded 03/22/24 11:23) REDNESS,BURNING Do you need a note to return to daycare/school/sports/work: No HPI HPI Comments History of Present Illness Details History - The patient is a 78-year-old male presenting with persistent cough and nasal congestion. - Symptoms duration is approximately one month, with attempts at treatment through pharmacy products proving ineffective. - He has tinnitus and nasal congestion with sleep disturbances due to a cough that worsens when lying flat. - Ear stiffness and sinus tenderness are noted, and discomfort is intensified during coughing and sneezing episodes. - Gastrointestinal symptoms include rapid transit of food with no history suggestive of asthma or COPD. - Fatigue is reported. - Patient also complaining of orthopedic issues following knee replacement and prior back surgeries, which also contribute to leg paresthesia and episodes of instability. Physical Exam General: Cooperative, healthy appearing, comfortable and no acute distress Orientation/consciousness: Patient oriented x3 Limitations: No limitations Head: Normal to inspection Ears: Hearing grossly normal bilaterally, external ears normal and TM's normal bilaterally. Right ear with ringing sensation. Nose: Normal external nose present, Normal nares present and No nasal discharge present Face and sinus: Normal facial exam and Sinuses tender Mouth: Normal oral and palatal mucosa present and moist mucous membranes Throat: Yes tonsils normal, Yes uvula midline. Posterior oropharynx erythema and very red Eyes: Appearance normal, both eyes and all related structures Neck: Normal visual inspection Respiratory: Clear but dim throughout to auscultation bilaterally. Normal respiratory effort, able to speak in complete sentences, Actively coughing, no respiratory distress, not tachypneic, no tripod positioning and no use of accessory muscles. Cardiovascular: bradycardic rate and regular rhythm. Normal S1 and S2 Skin: No rashes or lesions noted Neuro: Patient oriented x3 Extremities: Normal to inspection and Yes no clubbing, cyanosis or edema. [facility] Medical History Smoker Tubular adenoma of colon (~2010) Nicotine dependence, cigarettes, uncomplicated Dyslipidemia HTN (hypertension) AV bloc first degree Allergic rhinitis COPD (chronic obstructive pulmonary disease) Primary osteoarthritis of left knee Prostate cancer (~2018) Surgical History History of colonoscopy (~2010) History of prostate biopsy (~2018) History of partial colectomy (~2016) History of total left knee replacement (~2019) Status post lumbar microdiscectomy (~2002) Family History Mother Alzheimer disease Social History Housing: House Alcohol intake: current Alcohol intake frequency: 0-2 drinks per day Patient Tobacco Use Status: Current everyday Tobacco user Tobacco use type: Cigarette Cigarettes Per Day: 4 Years Smoked: 60 +/- e-Cigarette/Vaping Use: Never Used Second Hand Smoke Exposure: No service: No Current occupational status: retired Current occupation: Right Handed Cognitive needs: No Hearing needs: No Vision needs: No Review of Systems Const All systems reviewed & are unremarkable except as noted in HPI and below Physical Exam Vital Signs: Last Vital Signs Temp 97.6 F 03/22/24 11:23 Pulse 51 03/22/24 11:23 BP 138/80 03/22/24 11:23 Pulse Ox 97 03/22/24 11:23 Oxygen Delivery Method Room Air 03/22/24 11:23 Assessment & Plan Assessment & Plan (1) URI, acute: Code(s): J06.9 - Acute upper respiratory infection, unspecified Plan: Plan The management plan includes obtaining a chest X-ray to exclude pneumonia due to diminished pulmonary air movement during examination. Initial treatment will commence with azithromycin Z-Dani for upper respiratory symptoms, administered as two pills today, then one daily for four more days. Should the chest X-ray reveal pneumonia, a supplemental antibiotic may be prescribed. Nasal swabs will be sent for further analysis with results discussed upon receipt. The patient will be updated post chest X-ray and nasal swab testing to refine treatment as necessary. Tinnitus and gastrointestinal concerns are to be monitored for persistence or occurrences of new symptoms. Patient was informed and verbally consented to the use of an ambient scribe for clinic note documentation during this visit Orders: Orders SARS-CoV2/FLU/RSV Today J06.9 - Acute upper respiratory infection, unspecified XR chest 2V Today R05.9 - Cough, unspecified Medications: New azithromycin For 250 mg dose pack: take 500 mg today (day 1), then 250 mg for 4 days (days 2-5) PO 6 tabs 0RF Coding Level of Care Code Est Pt Level 4 (81940) Diagnoses URI, acute J06.9
[2024-03-22 11:23] VITALS: BP 138/80; PULSE 51; TEMP 36.4; O2SAT 97
== END 2024-03-22 12:29 | disposition home or self-care (01) ==
PROVIDERS: PCP Nurse Practitioner Family; Visit Provider Physician Assistant
DX: J06.9 Acute upper respiratory infection, unspecified (principal)

== ENCOUNTER 2024-03-22 10:01 | Outpatient (REF) | payer MEDICARE, SELFPAY ==
[2024-03-22 14:11] LABS: Influenza A PCR NEGATIVE (Negative); Influenza B PCR NEGATIVE (Negative); Resp Syncy Virus RNA Qual PCR NEGATIVE (Negative); SARS COV2 PCR INHOUSE NEGATIVE (Negative)
== END 2024-03-22 10:02 | disposition home or self-care (01) ==
LOC: HO.LAB 10:01
PROVIDERS: Physician Assistant; PCP Nurse Practitioner Family
DX: R05.9 Cough, unspecified (principal)
CPT/HCPCS: 0241U; 99212

== ENCOUNTER 2024-03-22 11:46 | Outpatient (REF) | payer MEDICARE, SELFPAY ==
--- NOTE | ~2024-03-22 | XR_ITS ---
EXAMINATION: XR CHEST 2 VIEWS HISTORY: R05.9 - Cough, unspecified COMPARISON: Comparison is made with the prior examination dated 04/18/2022. FINDINGS: PA and lateral views of the chest are submitted. The lungs are hyperinflated, consistent with COPD. The lungs are clear. There is no pleural effusion, pneumothorax, or pulmonary vascular congestion. The heart is normal in size. There is degenerative disc disease of the spine. XR/XR chest 2V IMPRESSION: COPD. No acute cardiopulmonary abnormality. Electronically signed by: Beltran Flynn MD 03/22/2024 12:38 PM EST
== END 2024-03-22 11:47 | disposition home or self-care (01) ==
LOC: HO.HMGCX 11:46
PROVIDERS: PCP Nurse Practitioner Family; Visit Provider Physician Assistant
DX: J06.9 Acute upper respiratory infection, unspecified (principal); R05.9 Cough, unspecified
CPT/HCPCS: 0241U; 71046; 99212

== ENCOUNTER → 2024-03-22 11:50 | Outpatient (BNV) | payer MEDICARE, SELFPAY | PROVIDERS: PCP Nurse Practitioner Family; Visit Provider Radiology Diagnostic Radiology | DX: R05.9 Cough, unspecified (principal) | CPT/HCPCS: 71046 ==

== ENCOUNTER 2024-04-01 12:15 | Outpatient (AMB) | payer MEDICARE, SELFPAY ==
--- NOTE | 2024-04-01 12:28 | A.OFFVIS_ITS ---
Vital Signs 04/01/24 12:29 Height 5 ft 8 in Weight 174 lb 2.643 oz BMI 26.5 BP 128/62 Blood Pressure Location Lt brachial Position Sitting Pulse 55 Pulse Source Monitor Intake Visit Reasons: 1 yr f/up Allergies NICOTINE PATCH Adverse Reaction (Severe, Uncoded 03/22/24 11:23) REDNESS,BURNING Medication List - Last Reconciled 04/01/24 by De Barclay MD amlodipine 5 mg PO DAILY atenolol 25 mg PO DAILY 90 days atorvastatin 20 mg PO BEDTIME 90 days diphenhydramine HCl (Allergy (diphenhydramine)) 25 mg PO TID PRN montelukast 10 mg PO DAILY tamsulosin 0.4 mg PO BEDTIME HPI Comments Details: [place] returns for follow-up. In the past, seen regarding first-degree heart block on EKG. Chronic smoker. Has COPD. Also has hypertension, dyslipidemia. For the most part he is doing fine. Sometimes, he states that he gets a sharp pain in the chest and that seems to have variable presentation. Sometimes it can happen after he has done some physical work but not during the actual activity. Hence not clear if it is describing angina or something nonspecific. Or something like pleuritic pain. Difficult to say. However, never had clear exertional angina. [facility] Medical History Smoker Tubular adenoma of colon (~2010) Nicotine dependence, cigarettes, uncomplicated Dyslipidemia HTN (hypertension) AV bloc first degree Allergic rhinitis COPD (chronic obstructive pulmonary disease) Primary osteoarthritis of left knee Prostate cancer (~2018) Surgical History History of colonoscopy (~2010) History of prostate biopsy (~2018) History of partial colectomy (~2016) History of total left knee replacement (~2019) Status post lumbar microdiscectomy (~2002) Family History Mother Alzheimer disease Social History Housing: House Alcohol intake: current Alcohol intake frequency: 0-2 drinks per day Patient Tobacco Use Status: Current everyday Tobacco user Tobacco use type: Cigarette Cigarettes Per Day: 4 Years Smoked: 60 +/- e-Cigarette/Vaping Use: Never Used Second Hand Smoke Exposure: No service: No Current occupational status: retired Current occupation: Right Handed Cognitive needs: No Hearing needs: No Vision needs: No Review of Systems Const Denies weakness ENT Denies dizziness Card Denies chest pain, Denies chest pain with activity, Denies syncope, Denies rapid heart rate, Denies pedal edema, Denies edema, Denies leg edema, Denies lightheadedness, Denies palpitations, Denies dyspnea, Denies dyspnea on exertion and Denies orthopnea Resp Denies cough, Denies dyspnea and Denies dyspnea on exertion GI Denies hematochezia and Denies change in stool character Musc Denies abnormal gait, Denies muscle cramps, Denies muscle weakness, Denies numbness, Denies radiating pain into limb and Denies tingling Neuro Denies abnormal gait, Denies dizziness, Denies syncope, Denies numbness, Denies tingling and Denies weakness Endo Denies palpitations Physical Exam Vital Signs: Last Vital Signs Pulse 55 04/01/24 12:29 BP 128/62 04/01/24 12:29 BMI result Body Mass Index 26.5 Const General: comfortable and no acute distress Orientation/consciousness: patient oriented x3 HEENT Other: Unremarkable Head: Yes normal to inspection Neck Neck: Yes normal visual inspection Chest Chest palpation & inspection: normal inspection of the chest Resp Auscultation: clear to auscultation bilaterally Cardio Palpation: normal PMI Heart sounds: S1 normal heart sound present, S2 normal heart sound present, no gallops, no murmurs and no rubs GI Palpation (GI): Soft to palpation Back/Spine/Pelvis Other: unremarkable Skin General skin exam: no rashes or lesions noted Neuro General: patient oriented x3 Extrem General: Yes normal to inspection Psych Mental Status: mental status grossly normal Office Procedures EKG Details: EKG with sinus bradycardia at 55/Min; RSR' in V1 suggesting RV conduction delay. Cannot exclude old lateral infarct but could also be normal variant. Similar to prior. [id number], Complete Assessment & Plan Assessment & Plan (1) Atherosclerotic cardiovascular disease: Code(s): I25.10 - Atherosclerotic heart disease of [place] coronary artery without angina pectoris Category: Medical Plan: Ungated chest CT scan shows coronary artery calcifications. Lexiscan perfusion imaging 2021 shows normal perfusion. Echocardiogram with normal LVEF and normal peak global longitudinal strain. Due to complaints of chest pain which I am not entirely clear if angina or not, we will repeat a stress testing. Continue statins. Last LDL 77 mg/dL. (2) HTN (hypertension): Code(s): I10 - Essential (primary) hypertension Category: Medical Qualifiers: Hypertension type: primary hypertension Qualified Code(s): I10 - Essential (primary) hypertension Plan: Stable. No changes. (3) AV bloc first degree: Code(s): I44.0 - Atrioventricular block, first degree Category: Medical Plan: Seems improved on the current EKG. Beta-joann dose has been decreased. (4) Smoker: Code(s): F17.200 - Nicotine dependence, unspecified, uncomplicated Category: Social Hx Plan: Ideally, needs to quit completely but not clear if he will. Orders: Orders CA lexiscan stress w alisha Today I20.9 - Angina pectoris, unspecified NM cardiolite stress test Today R07.2 - Precordial pain Coding Level of Care Code Est Pt Level 4 (25833) Diagnoses Atherosclerotic cardiovascular disease I25.10 Primary hypertension I10 Hypertension type: primary hypertension AV bloc first degree I44.0 Smoker F17.200 CPT Codes EKG - CPT: 53832-Aukzsledshhuetyef, Complete ([id number])
[2024-04-01 12:29] VITALS: BP 128/62; PULSE 55; BMI 26.5
== END 2024-04-01 12:49 | disposition home or self-care (01) ==
PROVIDERS: PCP Nurse Practitioner Family; Visit Provider Internal Medicine
DX: I25.10 Atherosclerotic heart disease of native coronary artery without angina pectoris (principal); I10 Essential (primary) hypertension; I44.0 Atrioventricular block, first degree; F17.200 Nicotine dependence, unspecified, uncomplicated
CPT/HCPCS: 93010; 99214

== ENCOUNTER → 2024-04-01 12:15 | Outpatient (BNVA) | payer MEDICARE, SELFPAY | PROVIDERS: PCP Nurse Practitioner Family; Visit Provider Internal Medicine | DX: I10 Essential (primary) hypertension (principal); I25.119 Atherosclerotic heart disease of native coronary artery with unspecified angina pectoris; I44.0 Atrioventricular block, first degree; J44.9 Chronic obstructive pulmonary disease, unspecified; E78.5 Hyperlipidemia, unspecified; R07.2 Precordial pain; F17.210 Nicotine dependence, cigarettes, uncomplicated | CPT/HCPCS: 93005; 99212 ==

== ENCOUNTER 2024-05-04 08:48 | Outpatient (REF) | payer MEDICARE, SELFPAY ==
--- NOTE | ~2024-05-04 | XR_ITS ---
EXAMINATION: XR LUMBOSACRAL SPINE CLINICAL INFORMATION: M54.50 - Low back pain, unspecified COMPARISON: 07/09/2018. TECHNIQUE: Three views of the lumbosacral spine. FINDINGS: There is a minimal left convex scoliosis, apex at L4. There is a normal lumbar lordosis. No fracture, compression deformity, traumatic subluxation, or suspicious bone lesion. There is a 2 mm degenerative retrolisthesis of L2 on L3, and L3 on L4. Moderate to severe disc degeneration spanning L3-S1. Associated facet degeneration at these levels. Soft tissues demonstrate diffuse vascular calcifications. There are fiducial markers in the inferior pelvis. XR/XR lumbar spine 2-3V IMPRESSION: 1. No acute findings lumbar spine. 2. Moderate spondylosis, most significant spanning L3-S1. Electronically signed by: Waylon Paredes MD 05/05/2024 08:05 AM ANTONIO
== END 2024-05-04 08:49 | disposition home or self-care (01) ==
LOC: HO.HMGCX 08:48
PROVIDERS: PCP Nurse Practitioner Family; Visit Provider Nurse Practitioner Family
DX: Z00.00 Encounter for general adult medical examination without abnormal findings (principal); Z23 Encounter for immunization; M54.50 Low back pain, unspecified; G89.29 Other chronic pain
CPT/HCPCS: 72100; 90471; 90677; 96127; 99212

== ENCOUNTER 2024-05-04 08:48 | Outpatient (AMB) | payer MEDICARE, SELFPAY ==
--- NOTE | 2024-05-04 09:08 | AM.OFFVISMDC ---
Intake Vital Signs 05/04/24 09:09 Height 5 ft 8 in Weight 176 lb BMI 26.8 BP 110/70 Blood Pressure Location Rt brachial Position Sitting Pulse 55 Pulse Source Pulse Oximeter Temp 97.9 F Temp Source Oral Pulse Oximetry (%) 94 Oxygen Delivery Method Room Air Intake Visit Reasons: SWV G0439 Allergies NICOTINE PATCH Adverse Reaction (Severe, Uncoded 05/04/24 09:33) REDNESS,BURNING Medication List - Last Reconciled 05/04/24 by Saroj Ortega, [employer]- amlodipine 5 mg PO DAILY atenolol 25 mg PO DAILY 90 days atorvastatin 20 mg PO BEDTIME 90 days montelukast 10 mg PO DAILY tamsulosin 0.4 mg PO BEDTIME Do you need a note to return to daycare/school/sports/work: No HPI SWV G0439 HPI Details here for a AWV. PPP in scan pile, CCC in scan pile. HPI Comments History of Present Illness Details The patient is a 78-year-old male presenting with a chronic condition of lower back pain with radiculopathy radiating down the left lower extremity. He reports this issue has been present for several years and has undergone three prior surgeries for his lower back, with the last surgery occurring over 15 years ago. He does not recall the specifics of the surgical procedures (missing notes). In the past, he received injections that provided some relief, with one injection lasting over a year in efficacy. Currently, the numbness and pain in his left lower extremity have worsened, impacting his ability to walk. He denies any symptoms indicative of cauda equina syndrome. There is no mention of any acute inciting events or specific aggravating factors discussed. The patient currently reports a deterioration in symptoms. [facility] Medical History Smoker Tubular adenoma of colon (~2010) Nicotine dependence, cigarettes, uncomplicated Dyslipidemia HTN (hypertension) AV bloc first degree Allergic rhinitis COPD (chronic obstructive pulmonary disease) Primary osteoarthritis of left knee Prostate cancer (~2018) Surgical History History of colonoscopy (~2010) History of prostate biopsy (~2018) History of partial colectomy (~2016) History of total left knee replacement (~2019) Status post lumbar microdiscectomy (~2002) Family History Mother Alzheimer disease Social History Housing: House Alcohol intake: current Alcohol intake frequency: 0-2 drinks per day Patient Tobacco Use Status: Current everyday Tobacco user Tobacco use type: Cigarette Cigarettes Per Day: 4 Years Smoked: 60 +/- e-Cigarette/Vaping Use: Never Used Second Hand Smoke Exposure: No service: No Current occupational status: retired Current occupation: Right Handed Cognitive needs: No Hearing needs: No Vision needs: No Questionnaire Medicare Wellness Checkup [age] What gender do you identify with?: male During the past 4 weeks, how much have you been bothered by emotional problems such as feeling anxious, depressed, irritable, sad or downhearted, and blue?: not at all During the past 4 weeks, has your physical & emotional health limited your social activities with family, friends, neighbors, or groups?: not at all During the past 4 weeks, how much bodily pain have you generally had?: moderate pain During the past 4 weeks, was someone available to help you if you needed & wanted help?: no, not at all During the past 4 weeks, what was the hardest physical activity you could do for at least 2 minutes?: heavy Can you get to places out of walking distance without help? (For eg., can you travel alone on buses, taxis or drive your car?): Yes Can you go shopping for groceries or clothes without someone's help?: Yes Can you prepare your own meals?: Yes Can you do your housework without help?: Yes Because of any health problems, do you need the help of another person with your personal care needs such as eating, bathing, dressing or getting around the house?: No Can you handle your own money without help?: Yes During the past 4 weeks, how would you rate your health in general?: good During the past 4 weeks how have things been going for you?: pretty well Are you having difficulties driving your car?: no Do you always fasten your seat belt when you are in a car?: yes, usually During past 4 weeks, have you been bothered by the following: never: Falling or dizzy when standing up, Sexual problems?, Trouble eating well?, Teeth or denture problems? and Problems using the telephone? and always: Tiredness or fatigue? Have you fallen 2 or more times in the past year?: No Are you afraid of falling?: No Are you a smoker?: yes, but I'm not ready to quit During the past 4 weeks, how many drinks of wine, beer, or other alcoholic beverages did you have?: 6-9 drinks per week Do you exercise for about 20 minutes 3 or more times a week?: yes, most of the time Have you been given information to help with the following?: yes: Hazards in your house that might hurt you? and yes: Keeping track of your medications? How often do you have trouble taking medicines the way you have been told to take them?: I always take medicine as prescribed How confident are you that you can control & manage most of your health problems?: somewhat confident What is your race?: White Mini Mental State Exam (MMSE) Orientation What is the (year) (season) (date) (day) (month)?: year, season, date, day and month Where are we (state) (county) (town or city) (hospital) (floor)?: state, county, town or city, hospital/clinic and floor Registration Name of 3 unrelated objects clearly and slowly, then ask patient to repeat all 3 of them. (1st repeat determines score. Make sure they can repeat all three): object 1, object 2 and object 3 Attention & Calculation (CHOOSE ONE) Spell WORLD backwards (DLROW): 4 letters Language Show patient a wristwatch & ask what it is. Repeat for pencil.: watch and pencil Ask the patient to repeat the phrase 'No ifs, ands, or buts' after you.: correct Ask the patient to 'take a piece of paper with their right hand' 'fold paper in half' 'place paper on floor': take paper in right hand, fold paper in half and place paper on floor Print the sentence 'CLOSE YOUR EYES' on a piece. If patient actually closes eyes then score.: followed written direction Give patient a blank piece of paper & ask to write a sentence. Score if it contains a noun & verb.: sentence contains subject and verb Ask patient to copy figure of intersecting pentagons exactly. Score if all 10 angles & 2 intersects are included.: all 10 angles present & 2 are intersected Score Score: 26 Activity of Daily Living Bathing - sponge bath, tub bath or shower: receives no assistance (gets in/out by self, if usual bathing means Dressing - getting clothes from closets & drawers, including inner/outer garments & fasteners.: gets clothes & gets completely dressed without help Toileting - going to the 'toilet room' for urine/bowel elimination & cleaning self/arranging clothes: goes to toilet room, cleans self, arranges clothes without help Transfer: moves in & out of bed and chair without help (may use support object) Continence: controls urination/bowel movements completely by self Feeding: feeds self without help Total Score: 0 Information obtained from: patient Using telephone: independent Traveling: independent Shopping: independent Preparing meals: independent Housework: independent Taking medicine: independent Managing money: independent PHQ-9 Over the last 2 weeks, how often have you been bothered by any of the following problems? 1. Little interest or pleasure in doing things: nearly every day 2. Feeling down, depressed, or hopeless: not at all 3. Trouble falling or staying asleep, or sleeping too much: not at all 4. Feeling tired or having little energy: not at all 5. Poor appetite or overeating: not at all 6. Feeling bad about yourself - or that you are a failure or have let yourself or your family down: not at all 7. Trouble concentrating on things, such as reading the newspaper or watching television: not at all 8. Moving or speaking so slowly that other people could have noticed. Or the opposite - being so fidgety or restless that you have been moving around a lot more than usual: not at all 9. Thoughts that you would be better off or of hurting yourself in some way: not at all Total score: 3 Depression Screening Interpretation: Negative Depression Screening Done: Yes 98682 - PHQ-9 Billing: Yes Source: Developed by Drs. Beltran Ken, Kathy Lindo, Oleg Duong and colleagues, with an educational nithya from [employer] TRAVIS-7 AMB Questionnaire TRAVIS-7 Date TRAVIS - 7 assessed: 04/17/23 Feeling nervous, anxious, or on edge: 2 = More than half the days Not being able to stop or control worryin = Not at all Worrying too much about different things: 2 = More than half the days Trouble relaxin = More than half the days Being so restless that it is hard to sit still: 0 = Not at all Becoming easily annoyed or irritable: 0 = Not at all Feeling afraid as if something awful might happen: 0 = Not at all Total TRAVIS-7 score (0-4 normal; 5-9 mild; 10-14 moderate; 15-21 severe): 6 Source: Developed by Drs. Beltran Ken, Kathy Lindo, Oleg Duong and colleagues, with an educational nithya from [employer] TRAVIS-7 Assessment Billing TRAVIS-7 Assessment Tool: TRAVIS-7 Assessment 13482 Physical Exam Vital Signs: Last Vital Signs Temp 97.9 F 05/04/24 09:09 Pulse 55 05/04/24 09:09 BP 110/70 05/04/24 09:09 Pulse Ox 94 05/04/24 09:09 Oxygen Delivery Method Room Air 05/04/24 09:09 BMI result Body Mass Index 26.8 Back/Spine/Pelvis Other: unable to perform heel and toe walking due to pain to LLE and lower transverse back pain. + straight leg raises to LLE. + patellar reflexes Neuro Other: whisper test passed, able to stand from sitting position, neg rhomberg, unable to tandem walk due to LLE pain/numbness. Assessment & Plan Assessment & Plan (1) Lower back pain: Comment: chronic Code(s): M54.50 - Low back pain, unspecified (2) Encounter for subsequent annual wellness visit in Medicare patient: Code(s): Z00.00 - Encounter for general adult medical examination without abnormal findings Plan . Orders: Orders XR lumbar spine 2-3V Today M54.50 - Low back pain, unspecified Quality Reporting (2019) Depression/Bipolar (159/160/161/177) PHQ-9: Total score: 3 Coding Level of Care Code Medicare Subsequent (G0439) Est Pt Level 3 (98328) Diagnoses Lower back pain M54.50 Encounter for subsequent annual wellness visit in Medicare patient Z00.00 CPT Codes Advance Care Planning - Time spent: 1-15 minutes, on File ([id number]) Additional Codes TRAVIS-7 Assessment Billing - TRAVIS-7 Assessment Tool: TRAVIS-7 Assessment 48309 ([id number]) PHQ-9 - 44049 - PHQ-9 Billing: Yes ([id number]) Advance Care Planning Forms completed: Health Care Proxy (form given to pt), MOLST (form filled out, in scan pile) and Living will (done, according to pt) Time spent: 1-15 minutes, on File Actual minutes spent: 8
[2024-05-04 09:09] VITALS: BP 110/70; PULSE 55; TEMP 36.6; O2SAT 94; BMI 26.8
== END 2024-05-04 09:52 | disposition home or self-care (01) ==
PROVIDERS: PCP Nurse Practitioner Family; Visit Provider Nurse Practitioner Family
DX: Z00.00 Encounter for general adult medical examination without abnormal findings (principal); M54.50 Low back pain, unspecified

== ENCOUNTER → 2024-05-04 09:55 | Outpatient (BNV) | payer MEDICARE, SELFPAY | PROVIDERS: PCP Nurse Practitioner Family; Visit Provider Radiology Diagnostic Radiology | DX: M47.817 Spondylosis without myelopathy or radiculopathy, lumbosacral region (principal) | CPT/HCPCS: 72100 ==

== ENCOUNTER 2024-05-04 12:37 | Outpatient (AMB) | payer MEDICARE, SELFPAY ==
--- NOTE | 2024-05-04 12:55 | AM.OFFVISNUR ---
Intake Visit Reasons: flu shot Intake Note: Pt had PCP appt today but left without getting pneumonia vaccine. Allergies NICOTINE PATCH Adverse Reaction (Severe, Uncoded 05/04/24 09:33) REDNESS,BURNING Immunizations pneumoc 20-rashad conj-dip cr(PF) 0.5 mL IM syringe Performing Provider: PENNY Caldera Performing Location: [facility] Administered by: Leana Aviles RN on 05/04/24 12:55 Dose Route Admin Location Dispensed Lot Number Expiration Date [facility] [place] Mmd Unit Teacher 0.5 mL IM Left Deltoid 0.5 mL [id number] 06/15/25 1417-6678-23 [employer] VIS Given Date VIS Provided VIS Publication Date 05/04/24 Single Vaccine 21 Eligibility Eligibility Date Funding Source Not [facility] Eligible 05/04/24 Private Assessment & Plan Assessment & Plan Orders: Orders Pneumococcal 20 Immunization Today Z23 - Encounter for immunization Medications: New pneumoc 20-rashad conj-dip cr(PF) 0.5 mL IM ONCE 0.5 mL 0RF Z23 - Encounter for immunization Coding
== END 2024-05-04 14:03 | disposition home or self-care (01) ==
LOC: HO.HMCC 12:37
PROVIDERS: PCP Nurse Practitioner Family; Visit Provider Nurse Practitioner Family
DX: Z23 Encounter for immunization (principal)

== ENCOUNTER 2024-05-14 08:44 | Outpatient (AMB) | payer MEDICARE, SELFPAY ==
--- NOTE | 2024-05-14 08:47 | A.OFFVIS_ITS ---
Vital Signs 05/14/24 08:53 Height 5 ft 8 in Weight 176 lb BMI 26.8 BP 139/74 Blood Pressure Location Rt brachial Position Sitting Pulse 55 Pulse Source Pulse Oximeter Pulse Oximetry (%) 96 Intake Visit Reasons: Low Back Pain Intake Note: Pain today 8 Transfer Controller Required: No Accompanied by: Self / Same As Patient Allergies NICOTINE PATCH Adverse Reaction (Severe, Uncoded 05/04/24 09:33) REDNESS,BURNING HPI HPI Low Back Pain: Details: Patient is a pleasant 78 years old male with history of lumbar microdiscectomy x2 and left TKA, chronic low back pain, advanced lumbar disc degenerative disease and spondylosis, left shoulder arthritis (multiple cortisone shoulder injections), prostate cancer and current tobacco smoker, presents today for initial evaluation of acute on chronic low back pain with radiculopathy and left knee pain. Denies any recent trauma, injury or falls. Patient reports back pain has been present since late teenager years. Currently, his back pain is axial and also radiates into left knee and anterior and lateral taylor with associated stabbing, aching, pins and needles and burning sensations in his lower leg and foot. His walking capacity is limited to 10 min, standing 20-30 min with can or holding on to something. Reports most severe back pain with bending down and flexing forward. Reports anterior left knee pain without swelling, burning, or erythema. He is able to sit up to 30 min on soft surfaces. Patient states he often looses balance when getting up from sitting to standing due to increase in left leg and back pain. He cannot functional normally and wakes up frequently at night due to pain. He completed physical therapy in the past but cannot pursue PT at this time due to significant low back pain. Pain is rated 8-10/10. Patient has tried OTC medications and topicals but prefers to avoid medications. Denies any fever or chills, abdominal or groin pain, foot drop, bladder or bowel dysfunction or saddle anesthesia. He reports frequent episodes of dizziness with h/o first degree AV block and currently on atenolol which was recently decreased per Cardiology. Patient previously underwent multiple interventional treatments for back and knee pain at [facility] and [facility], as well as multiple cortisone knee injections by Dr. Aguillon at [facility]. Past Procedures at [facility]: 05/31/2014: Right L4-L5 Interlaminar ONI with immediate and complete pain relief 04/07/2018: Bilateral L4-L5 and L5-S1 facet injections 05/11/2018: Lumbar medial branch blocks 06/29/2019: Lumbar medial branch blocks [facility]: 11/30/2021: Lumbar ONI 12/11/2021: Right knee Euflexxa injection (1st injection) 12/21/2021: Right knee Euflexxa injection (2nd injection) 12/27/2021: Right knee Euflexxa injection (3rd injection) 03/15/2022: Knee injection 05/10/2022: Lumbar medial branch RFA 05/29/2022: Left knee cortisone injection Oswestry Low Back Disability Score=26 (severe disability) Location: Lower back radiates down LLE, left knee pain Duration: Chronic pain for many years, worsening for past 3 months Characteristics of symptom or complaint: Aching, shooting, burning, stabbing, shooting, numbness, tingling, sore Aggravating or associated factors: Walking, climbing stairs, bending, lifting, sitting to standing, movements Relieving factors: Back brace, Tylenol, heat/ice therapy, activity modifications Treatment: PT, knee and back injections, lumbar RFA, back surgery x2, left TKA PFSH Medical History (Updated 05/14/24 @ 09:54 by KENNA Estrada) Smoker Tubular adenoma of colon (~2010) Nicotine dependence, cigarettes, uncomplicated Dyslipidemia HTN (hypertension) AV bloc first degree Allergic rhinitis COPD (chronic obstructive pulmonary disease) Primary osteoarthritis of left knee Prostate cancer (~2018) Surgical History (Updated 05/14/24 @ 09:53 by KENNA Estrada) History of total left knee replacement (~2019) History of colonoscopy (~2010) History of prostate biopsy (~2018) History of partial colectomy (~2016) Status post lumbar microdiscectomy (~2002) Family History Mother Alzheimer disease Social History Housing: House Alcohol intake: current Alcohol intake frequency: 0-2 drinks per day Patient Tobacco Use Status: Current everyday Tobacco user Tobacco use type: Cigarette Cigarettes Per Day: 4 Years Smoked: 60 +/- e-Cigarette/Vaping Use: Never Used Second Hand Smoke Exposure: No service: No Current occupational status: retired Current occupation: Right Handed Cognitive needs: No Hearing needs: No Vision needs: No Review of Systems Const All systems reviewed & are unremarkable except as noted in HPI and below Physical Exam Vital Signs: Last Vital Signs Pulse 55 05/14/24 08:53 BP 139/74 05/14/24 08:53 Pulse Ox 96 05/14/24 08:53 BMI result Body Mass Index 26.8 General: Appears afebrile. Alert and oriented. Mood and affect appropriate. Follows and participates in conversation appropriately. Respiratory effort is unlabored. No cough. Able to transition from sit to stand unassisted. Reports he uses cane at home with ambulation. Ambulates with bilaterally normal heel strike and toe off, increased pain with toe/heel standing on the left. Cardio Jugular venous distension: no JVD Palpation: normal PMI Rate: bradycardic Peripheral pulses: Peripheral pulses 2+ throughout General: Yes no CVA tenderness Back/Spine/Pelvis Other: Limited lumbar ROM due to pain. Well healed midline scar in the lower lumbar spine. Lumbar flexion, flexion forward, and bending reproduces moderate to severe pain. No midline tenderness to palpation in the thoracic or lumbar spine. Demonstrates 5/5 strength of quadriceps bilaterally as well as flexion/dorsiflexion of bilateral feet against resistance. 2+ pedal pulses bilaterally. Straight leg rise with dorsiflexion positive on the left. Di minished patellar and achilles reflexes bilaterally. Facet loading test positive bilaterally. Sreekanth sign, Devyn?s, Pelvic compression and Stinchfield tests are negative bilaterally. No groin pain with I/E hip rotations. Valsalva maneuver negative. No clonus. Back: no CVA tenderness Cervical Spine: cervical ROM normal and No Cervical spine tenderness Thoracic/Lumbar Spine: thoracic and lumbar spine normal to inspection, Thoracic/lumbar spine scar(s), Lasegue's sign positive on the left and localized, pain with thoraco-lumbar ROM, paraspinal muscle tenderness, thoraco- lumbar ROM limited, Thoracic/lumbar scoliosis, No thoracic spinal tenderness and No lumbar spinal tenderness Pelvis: no buttock tenderness and no sciatic notch tenderness Sacroiliac joints: bilaterally nontender Extrem General: Yes capillary refill normal, Yes no clubbing, cyanosis or edema and Yes no calf tenderness Left lower extremity: knee (Well healed scar. Mildly limited ROM. ) Details: normal to inspection, tenderness (anterior knee +allodynia) and crepitus; no swelling, no ecchymosis, no deformity and no unusual warmth Results Reviewed Results Reviewed: XR LUMBOSACRAL SPINE 05/04/24 CLINICAL INFORMATION: M54.50 - Low back pain, unspecified COMPARISON: 07/09/2018. TECHNIQUE: Three views of the lumbosacral spine. FINDINGS: There is a minimal left convex scoliosis, apex at L4. There is a normal lumbar lordosis. No fracture, compression deformity, traumatic subluxation, or suspicious bone lesion. There is a 2 mm degenerative retrolisthesis of L2 on L3, and L3 on L4. Moderate to severe disc degeneration spanning L3-S1. Associated facet degeneration at these levels. Soft tissues demonstrate diffuse vascular calcifications. There are fiducial markers in the inferior pelvis. IMPRESSION: 1. No acute findings lumbar spine. 2. Moderate spondylosis, most significant spanning L3-S1. XR KNEE, LEFT 03/29/21 CLINICAL INFORMATION: Left knee pain COMPARISON: September 08, 2020 TECHNIQUE: Three views of the left knee. FINDINGS: Patient is status post left total knee arthroplasty. Prosthetic components appear in good position. No acute fracture or dislocation is evident. No significant effusion is seen. No evidence of prosthetic loosening. IMPRESSION: Status post left total knee arthroplasty without significant abnormality appreciated. Assessment & Plan Assessment & Plan (1) History of total left knee replacement: Onset Date: ~2019 Comment: ([place] T[place] [facility] [place] Code(s): Z96.652 - Presence of left artificial knee joint Category: Surgical (2) Left knee pain: Code(s): M25.562 - Pain in left knee Category: Medical (3) Lumbar spinal stenosis: Code(s): M48.061 - Spinal stenosis, lumbar region without neurogenic claudication Category: Medical (4) Lumbar degenerative disc disease: Code(s): M51.369 - Other intervertebral disc degeneration, lumbar region without mention of lumbar back pain or lower extremity pain Category: Medical (5) Lumbosacral spondylosis: Code(s): M47.817 - Spondylosis without myelopathy or radiculopathy, lumbosacral region Category: Medical (6) Lumbar post-laminectomy syndrome: Code(s): M96.1 - Postlaminectomy syndrome, not elsewhere classified Category: Medical Plan Patient presents with lumbar post laminectomy syndrome as well acute on chronic low back pain with discogenic and spinal-stenosis related pain with mild- moderate axial low back pain. He also reports persistent allodynia and aching with stabbing anterior left knee pain with h/o left TKA in 2020. We will proceed with lumbar spine MRI to assess for neural integrity and compression and follow up on previous xray findings and update left knee xray for hardware status. Discussed interventional treatments for back and knee pain, including diagnostic vs therapeutic injections, neuromodulation, Intracept and RFA procedures, SCS trial vs implant and Sprint PNS trial. Information pamphlets were provided to patient. Patient will follow up with Cardiology and PCP for episodes of dizziness and bradycardia. Patient will monitor his pulse and hold Atenolol for HR<60 and follow up with Cardiology. All questions and concerns have been answered and patient agreed with the plan. Follow up for MRI results and sooner as needed. Orders: Orders MR lumbar spine wo con 05/14/24 M47.817 - Spondylosis without myelopathy or radiculopathy, lumbosacral region, M48.061 - Spinal stenosis, lumbar region without neurogenic claudication, M51.369 - Other intervertebral disc degeneration, lumbar region without mention of lumbar back pain or lower extremity pain, M96.1 - Postlaminectomy syndrome, not elsewhere classified XR knee LT 3V 05/14/24 M25.562 - Pain in left knee, Z96.652 - Presence of left artificial knee joint Coding Level of Care Code New Pt Level 4 (67479) Complex EM visit Add On G2211 Diagnoses History of total left knee replacement Z96.652 Left knee pain M25.562 Lumbar spinal stenosis M48.061 Lumbar degenerative disc disease M51.369 Lumbosacral spondylosis M47.817 Lumbar post-laminectomy syndrome M96.1
[2024-05-14 08:53] VITALS: BP 139/74; PULSE 55; O2SAT 96; BMI 26.8
== END 2024-05-14 09:53 | disposition home or self-care (01) ==
PROVIDERS: PCP Nurse Practitioner Family; Referring Provider Nurse Practitioner Family; Visit Provider Nurse Practitioner Family
DX: Z96.652 Presence of left artificial knee joint (principal); M25.562 Pain in left knee; M48.061 Spinal stenosis, lumbar region without neurogenic claudication; M51.369 Other intervertebral disc degeneration, lumbar region without mention of lumbar back pain or lower extremity pain; M47.817 Spondylosis without myelopathy or radiculopathy, lumbosacral region; M96.1 Postlaminectomy syndrome, not elsewhere classified
CPT/HCPCS: 99204; G2211

== ENCOUNTER → 2024-05-14 08:44 | Outpatient (BNVA) | payer MEDICARE, SELFPAY | PROVIDERS: PCP Nurse Practitioner Family; Referring Provider Nurse Practitioner Family; Visit Provider Nurse Practitioner Family | DX: M48.061 Spinal stenosis, lumbar region without neurogenic claudication (principal); M51.369 Other intervertebral disc degeneration, lumbar region without mention of lumbar back pain or lower extremity pain; M47.817 Spondylosis without myelopathy or radiculopathy, lumbosacral region; M96.1 Postlaminectomy syndrome, not elsewhere classified; M25.562 Pain in left knee; Z96.652 Presence of left artificial knee joint | CPT/HCPCS: 99202 ==

== ENCOUNTER 2024-05-23 09:08 | Outpatient (REF) | payer MEDICARE, SELFPAY ==
--- NOTE | ~2024-05-23 | MR_ITS ---
CLINICAL HISTORY: M48.061 - Spinal stenosis, lumbar region without neurogenic claudication MR of the lumbar spine without contrast Comparison: CR/SR - XR LUMBAR SPINE 2-3V - 05/04/24 10:05 EST CR - LUMBAR SPINE 2TO 3 [id number] - 07/09/18 16:26 EDT MR - MRI LUMBAR SPINE W [place] [id number] - 04/05/14 14:37 EST Findings: 2 mm retrolisthesis of L2 on L3, degenerative. 3 mm retrolisthesis of L4 on L5, degenerative. There is a mild amount Modic type 1 change at L3/L4 and L5/S1 at the left aspect, also present on the prior study. Small cystic change and L4. Bone marrow signal is otherwise normal. No cord expansion or abnormal signal intensity. The conus medullaris terminates at L1, which is normal. The cauda equina is unremarkable. L1/L2: No disc herniation. Mild facet joint and ligamentum flavum hypertrophy. No central canal stenosis. No lateral recess stenosis. No foraminal stenosis. L2/L3: 5 mm disc bulge most prominent in the left subarticular zone. Moderate facet joint and ligamentum flavum hypertrophy. Fluid in the facet joints. Mild central canal stenosis. Mild right and severe left lateral recess stenosis. No right and mild left foraminal stenosis. L3/L4: 5 mm broad-based disc bulge with an annular fissure. Moderate facet joint and ligamentum flavum hypertrophy. Fluid in the left facet joint. [id number] central canal stenosis. Severe bilateral lateral recess stenosis. Moderate right [id number] left foraminal stenosis, similar to the prior study. L4/L5: 6 mm broad-based disc bulge with an annular fissure. Severe facet joint and ligamentum flavum hypertrophy. Moderate central canal stenosis. Severe bilateral lateral recess stenosis, greater on the left. Severe right and moderate left foraminal stenosis, similar to the prior study. L5/S1: Disc desiccation with a disc/osteophyte measuring 5 mm. Severe facet joint hypertrophy. Mild ligamentum flavum hypertrophy. Trace amount of fluid in the right facet joint. Mild central canal stenosis. Moderate to severe bilateral lateral recess stenosis. Mild right moderate to severe left foraminal stenosis, greater than on the prior study. Impression: Multilevel degenerative change, detailed above. This document has been electronically signed by: Leonarda Sage MD on 05/23/2024 13:15:30
== END 2024-05-23 09:09 | disposition home or self-care (01) ==
LOC: HO.MRI 09:08
PROVIDERS: PCP Nurse Practitioner Family; Visit Provider Nurse Practitioner Family
DX: M48.061 Spinal stenosis, lumbar region without neurogenic claudication (principal); M51.369 Other intervertebral disc degeneration, lumbar region without mention of lumbar back pain or lower extremity pain; M47.817 Spondylosis without myelopathy or radiculopathy, lumbosacral region; M96.1 Postlaminectomy syndrome, not elsewhere classified
CPT/HCPCS: 72148

== ENCOUNTER → 2024-05-23 09:08 | Outpatient (BNV) | payer MEDICARE, SELFPAY | PROVIDERS: PCP Nurse Practitioner Family; Visit Provider Radiology Diagnostic Radiology | DX: M48.061 Spinal stenosis, lumbar region without neurogenic claudication (principal) | CPT/HCPCS: 72148 ==

== ENCOUNTER 2024-06-07 11:13 | Outpatient (AMB) | payer MEDICARE, SELFPAY ==
--- NOTE | 2024-06-07 11:21 | A.OFFVIS_ITS ---
Vital Signs 06/07/24 11:32 Height 5 ft 8 in Weight 176 lb BMI 26.8 BP 160/73 H Blood Pressure Location Rt brachial Position Sitting Pulse 56 Pulse Source Pulse Oximeter Pulse Oximetry (%) 98 Oxygen Delivery Method Room Air Intake Visit Reasons: Follow up MRI results Intake Note: Pain today 09/23 Pesticide Chemist Required: No Accompanied by: Self / Same As Patient Allergies NICOTINE PATCH Adverse Reaction (Severe, Uncoded 05/04/24 09:33) REDNESS,BURNING HPI Comments Details: Patient presents today for follow up to discuss recent lumbar spine MRI results. Patient continues to experience significant low back pain on the right, especially when getting up from sitting position and left leg numbness with heaviness and weakness. He reports after previous left knee replacement, he developed numbness and heaviness in the left leg which has progressed to frequent episodes of numbness and balance issues. The symptoms include extensive numbness from the knee down to the front of foot, further exacerbated by prolonged sitting or any uneven walking surfaces that cause the patient's foot to fall asleep. Initial treatment at other pain clinics involved lumbar spinal injections which initially lasted for extended periods, but more recent injections provide diminished relief. He is hesitant towards additional back surgery but is willing to consider Neurosurgery evaluation at [facility] for minimally invasive decompression. Patient ambulates with slow antalgic gait in semi-flexed forward position without assistive devices. He notes that he has a lot work at home and cane or walker would be in his way. Denies any fever or chills, abdominal or groin pain, bladder or bowel dysfunction or saddle anesthesia. Reports left lower extremity weakness due to heaviness and numbness. - Onset and Timing: Chronic pain with significant symptoms after knee replacement. - Quality and Character: Numbness and sensation of the foot falling asleep. - Primary Location: Lower back and left leg, from knee to foot. - Exacerbating Factors: Sitting and walking. - Relieving Factors: Previously managed with injections. - Interfered Activities: Causes loss of balance, difficulty performing daily tasks. - Affect: Pain leads to physical instability and requires careful navigation when walking. - Analgesia: Injections provided previous relief but are now less efficacious - Adverse Effects: Recent injections less effective in managing symptoms. - Activities of Daily Living: Difficulty with balance and walking; requires careful navigation and support. - Aberrant Drug-Related Behaviors: No behaviors indicating medication misuse were mentioned. PRIOR: Patient is a pleasant 78 years old male with history of lumbar microdiscectomy x2 and left TKA, chronic low back pain, advanced lumbar disc degenerative disease and spondylosis, left shoulder arthritis (multiple cortisone shoulder injections), prostate cancer and current tobacco smoker, presents today for initial evaluation of acute on chronic low back pain with radiculopathy and left knee pain. Denies any recent trauma, injury or falls. Patient reports back pain has been present since late teenager years. Currently, his back pain is axial and also radiates into left knee and anterior and lateral taylor with associated stabbing, aching, pins and needles and burning sensations in his lower leg and foot. His walking capacity is limited to 10 min, standing 20-30 min with can or holding on to something. Reports most severe back pain with bending down and flexing forward. Reports anterior left knee pain without swelling, burning, or erythema. He is able to sit up to 30 min on soft surfaces. Patient states he often looses balance when getting up from sitting to standing due to increase in left leg and back pain. He cannot functional normally and wakes up frequently at night due to pain. He completed physical therapy in the past but cannot pursue PT at this time due to significant low back pain. Pain is rated 8-10/10. Patient has tried OTC medications and topicals but prefers to avoid medications. Denies any fever or chills, abdominal or groin pain, foot drop, bladder or bowel dysfunction or saddle anesthesia. He reports frequent episodes of dizziness with h/o first degree AV block and currently on atenolol which was recently decreased per Cardiology. Patient previously underwent multiple interventional treatments for back and knee pain at [facility], as well as multiple cortisone knee injections by Dr. Aguillon at [facility]. Past Procedures at [facility]: 05/31/2014: Right L4-L5 Interlaminar ONI with immediate and complete pain relief 04/07/2018: Bilateral L4-L5 and L5-S1 facet injections 05/11/2018: Lumbar medial branch blocks 06/29/2019: Lumbar medial branch blocks [facility]: 11/30/2021: Lumbar ONI 12/11/2021: Right knee Euflexxa injection (1st injection) 12/21/2021: Right knee Euflexxa injection (2nd injection) 12/27/2021: Right knee Euflexxa injection (3rd injection) 03/15/2022: Knee injection 05/10/2022: Lumbar medial branch RFA 05/29/2022: Left knee cortisone injection Oswestry Low Back Disability Score=26 (severe disability) Location: Lower back radiates down LLE, left knee pain Duration: Chronic pain for many years, worsening for past 3 months Characteristics of symptom or complaint: Aching, shooting, burning, stabbing, shooting, numbness, tingling, sore Aggravating or associated factors: Walking, climbing stairs, bending, lifting, sitting to standing, movements Relieving factors: Back brace, Tylenol, heat/ice therapy, activity modifications Treatment: PT, knee and back injections, lumbar RFA, back surgery x2, left TKA PFSH Medical History Smoker Tubular adenoma of colon (~2010) Nicotine dependence, cigarettes, uncomplicated Dyslipidemia HTN (hypertension) AV bloc first degree Allergic rhinitis COPD (chronic obstructive pulmonary disease) Primary osteoarthritis of left knee Prostate cancer (~2018) Surgical History History of total left knee replacement (~2019) History of colonoscopy (~2010) History of prostate biopsy (~2018) History of partial colectomy (~2016) Status post lumbar microdiscectomy (~2002) Family History Mother Alzheimer disease Social History Housing: House Alcohol intake: current Alcohol intake frequency: 0-2 drinks per day Patient Tobacco Use Status: Current everyday Tobacco user Tobacco use type: Cigarette Cigarettes Per Day: 4 Years Smoked: 60 +/- e-Cigarette/Vaping Use: Never Used Second Hand Smoke Exposure: No service: No Current occupational status: retired Current occupation: Right Handed Cognitive needs: No Hearing needs: No Vision needs: No Review of Systems Const All systems reviewed & are unremarkable except as noted in HPI and below Physical Exam Vital Signs: Last Vital Signs Pulse 56 06/07/24 11:32 BP 160/73 H 06/07/24 11:32 Pulse Ox 98 06/07/24 11:32 Oxygen Delivery Method Room Air 06/07/24 11:32 BMI result Body Mass Index 26.8 General: Appears afebrile. Moderate discomfort due to back pain with radiculopathy. Alert and oriented. Mood and affect appropriate. Follows and participates in conversation appropriately. Respiratory effort is unlabored. No cough. Able to transition from sit to stand unassisted. Reports he uses cane occasionally at home with ambulation. Ambulates with normal heel strike and toe off on the right, increased pain with toe/heel standing on the left. Cardio Jugular venous distension: no JVD Palpation: normal PMI Rate: bradycardic Peripheral pulses: Peripheral pulses 2+ throughout General: Yes no CVA tenderness Back/Spine/Pelvis Other: Limited lumbar ROM due to pain. Slow, antalgic gait with limping. Well healed midline scar in the lower lumbar spine. Lumbar flexion, extension flexion forward, and bending reproduces moderate to severe pain. No midline tenderness to palpation in the thoracic or lumbar spine. Demonstrates 5/5 right and 4/5 left strength of quadriceps bilaterally as well as flexion/dorsiflexion of bilateral feet against resistance. 2+ pedal pulses bilaterally. Straight leg rise with dorsiflexion positive on the left. Diminished patellar and achilles reflexes bilaterally, left>right. Facet loading test positive bilaterally. Sreekanth sign, Devyn?s, Pelvic compression and Stinchfield tests are negative bilaterally. No groin pain with I/E hip rotations. Valsalva maneuver is positive. Back: no CVA tenderness Cervical Spine: cervical ROM normal and No Cervical spine tenderness Thoracic/Lumbar Spine: thoracic and lumbar spine normal to inspection, Thoracic/lumbar spine scar(s), Lasegue's sign positive on the left and localized, pain with thoraco-lumbar ROM, paraspinal muscle tenderness, thoraco- lumbar ROM limited, Thoracic/lumbar scoliosis, No thoracic spinal tenderness and No lumbar spinal tenderness Pelvis: no buttock tenderness and no sciatic notch tenderness Sacroiliac joints: bilaterally nontender Extrem Left lower extremity: knee (Well healed scar. Mildly limited ROM. ) Details: normal to inspection, tenderness (anterior knee +allodynia) and crepitus; no swelling, no ecchymosis, no deformity and no unusual warmth Results Reviewed Results Reviewed: XR LUMBOSACRAL SPINE 05/04/24 CLINICAL INFORMATION: M54.50 - Low back pain, unspecified COMPARISON: 07/09/2018. TECHNIQUE: Three views of the lumbosacral spine. FINDINGS: There is a minimal left convex scoliosis, apex at L4. There is a normal lumbar lordosis. No fracture, compression deformity, traumatic subluxation, or suspicious bone lesion. There is a 2 mm degenerative retrolisthesis of L2 on L3, and L3 on L4. Moderate to severe disc degeneration spanning L3-S1. Associated facet degeneration at these levels. Soft tissues demonstrate diffuse vascular calcifications. There are fiducial markers in the inferior pelvis. IMPRESSION: 1. No acute findings lumbar spine. 2. Moderate spondylosis, most significant spanning L3-S1. XR KNEE, LEFT 03/29/21 CLINICAL INFORMATION: Left knee pain COMPARISON: September 08, 2020 FINDINGS: Patient is status post left total knee arthroplasty. Prosthetic components appear in good position. No acute fracture or dislocation is evident. No significant effusion is seen. No evidence of prosthetic loosening. IMPRESSION: Status post left total knee arthroplasty without significant abnormality appreciated. MR LUMBAR SPINE wo con 05/23/24 MR of the lumbar spine without contrast Comparison: CR/SR - XR LUMBAR SPINE 2-3V - 05/04/24 10:05 EST CR - LUMBAR SPINE 2TO 3 [id number] - 07/09/18 16:26 EDT MR - [place]UMBAR [place] [id number] - 04/05/14 14:37 EST Findings: 2 mm retrolisthesis of L2 on L3, degenerative. 3 mm retrolisthesis of L4 on L5, degenerative. There is a mild amount Modic type 1 change at L3/L4 and L5/S1 at the left aspect, also present on the prior study. Small cystic change and L4. Bone marrow signal is otherwise normal. No cord expansion or abnormal signal intensity. The conus medullaris terminates at L1, which is normal. The cauda equina is unremarkable. L1/L2: No disc herniation. Mild facet joint and ligamentum flavum hypertrophy. No central canal stenosis. No lateral recess stenosis. No foraminal stenosis. L2/L3: 5 mm disc bulge most prominent in the left subarticular zone. Moderate facet joint and ligamentum flavum hypertrophy. Fluid in the facet joints. Mild central canal stenosis. Mild right and severe left lateral recess stenosis. No right and mild left foraminal stenosis. L3/L4: 5 mm broad-based disc bulge with an annular fissure. Moderate facet joint and ligamentum flavum hypertrophy. Fluid in the left facet joint. Hyql-sd-yuzmstmb central canal stenosis. Severe bilateral lateral recess stenosis. Moderate right juuw-mx-twjecmum left foraminal stenosis, similar to the prior study. L4/L5: 6 mm broad-based disc bulge with an annular fissure. Severe facet joint and ligamentum flavum hypertrophy. Moderate central canal stenosis. Severe bilateral lateral recess stenosis, greater on the left. Severe right and moderate left foraminal stenosis, similar to the prior study. L5/S1: Disc desiccation with a disc/osteophyte measuring 5 mm. Severe facet joint hypertrophy. Mild ligamentum flavum hypertrophy. Trace amount of fluid in the right facet joint. Mild central canal stenosis. Moderate to severe bilateral lateral recess stenosis. Mild right moderate to severe left foraminal stenosis, greater than on the prior study. Impression: Multilevel degenerative change, detailed above. Assessment & Plan Assessment & Plan (1) History of total left knee replacement: Onset Date: ~2019 Comment: (Lt TKR - Dr. Aguillon, [facility] - 10/04/2019) Code(s): Z96.652 - Presence of left artificial knee joint Category: Surgical (2) Left knee pain: Code(s): M25.562 - Pain in left knee Category: Medical (3) Lumbar degenerative disc disease: Code(s): M51.369 - Other intervertebral disc degeneration, lumbar region without mention of lumbar back pain or lower extremity pain Category: Medical (4) Lumbosacral spondylosis: Code(s): M47.817 - Spondylosis without myelopathy or radiculopathy, lumbosacral region Category: Medical (5) Lumbar post-laminectomy syndrome: Code(s): M96.1 - Postlaminectomy syndrome, not elsewhere classified Category: Medical (6) Spinal stenosis of lumbar region with neurogenic claudication: Code(s): M48.062 - Spinal stenosis, lumbar region with neurogenic claudication Category: Medical Plan Lumbar spine MRI results were discussed today. Patient suffers with lumbar post laminectomy syndrome as well acute on chronic low back pain with discogenic and with progressively worsening spinal-stenosis related pain with mild-moderate axial low back pain. He also reports persistent allodynia and aching with stabbing anterior left knee pain with h/o left TKA in 2020. I advised the patient on pursuing a combined approach for managing lumbar spinal stenosis. We will proceed with prompt Neurosurgery evaluation and schedule Left L4-L5, L5- S1 TFESI with local anesthesia and fluoroscopy for radicular symptoms, understanding their limited efficacy may necessitate surgical intervention if symptom relief is inadequate. Expectations, risks and benefits were reviewed. Patient is aware he will be contacted to schedule this procedure. Patient is aware to call if pain worsens or if he develops any red flag symptoms to seek emergency care. All questions and concerns have been answered and patient agreed with the plan. Follow up after injections and sooner as needed. Patient was informed and verbally consented to the use of an ambient scribe for clinic note documentation during this visit. Orders: Referrals Neuro Spine Referral M48.062 - Spinal stenosis, lumbar region with neurogenic claudication Coding Level of Care Code Est Pt Level 4 (34102) Complex EM visit Add On G2211 Diagnoses History of total left knee replacement Z96.652 Left knee pain M25.562 Lumbar degenerative disc disease M51.369 Lumbosacral spondylosis M47.817 Lumbar post-laminectomy syndrome M96.1 Spinal stenosis of lumbar region with neurogenic claudication M48.062
[2024-06-07 11:32] VITALS: BP 160/73; PULSE 56; O2SAT 98; BMI 26.8
== END 2024-06-07 11:56 | disposition home or self-care (01) ==
PROVIDERS: PCP Nurse Practitioner Family; Visit Provider Nurse Practitioner Family
DX: Z96.652 Presence of left artificial knee joint (principal); M25.562 Pain in left knee; M51.369 Other intervertebral disc degeneration, lumbar region without mention of lumbar back pain or lower extremity pain; M47.817 Spondylosis without myelopathy or radiculopathy, lumbosacral region; M96.1 Postlaminectomy syndrome, not elsewhere classified; M48.062 Spinal stenosis, lumbar region with neurogenic claudication
CPT/HCPCS: 99214; G2211

== ENCOUNTER → 2024-06-07 11:13 | Outpatient (BNVA) | payer MEDICARE, SELFPAY | PROVIDERS: PCP Nurse Practitioner Family; Visit Provider Nurse Practitioner Family | DX: M25.562 Pain in left knee (principal); M51.369 Other intervertebral disc degeneration, lumbar region without mention of lumbar back pain or lower extremity pain; M47.817 Spondylosis without myelopathy or radiculopathy, lumbosacral region; M96.1 Postlaminectomy syndrome, not elsewhere classified; M48.062 Spinal stenosis, lumbar region with neurogenic claudication; Z96.652 Presence of left artificial knee joint | CPT/HCPCS: 99212 ==

== ENCOUNTER 2024-06-11 09:08 | Outpatient (AMB) | payer MEDICARE, SELFPAY ==
--- NOTE | 2024-06-11 09:16 | HO.SPINEOV ---
Vital Signs 06/11/24 09:29 Height 5 ft 8 in Weight 176 lb BMI 26.8 Intake Visit Reasons: spinal stenosis, lumbar region Intake Note: Mr. Briscoe is here today c/o back pain. Segmental Paving Supervisor Required: No Allergies NICOTINE PATCH Adverse Reaction (Severe, Uncoded 05/04/24 09:33) REDNESS,BURNING Physical Exam Vital Signs: BMI result Body Mass Index 26.8 Assessment & Plan Assessment & Plan (1) Spinal stenosis of lumbar region with neurogenic claudication: Code(s): M48.062 - Spinal stenosis, lumbar region with neurogenic claudication Category: Medical Plan Dear Zina, Thank you for referring Mr Briscoe to our office today. This is a 78-year-old gentleman with a complicated spinal history including back surgery in 1978 for what sounds like a herniated disc and midline lumbar pain, with a follow-up subsequent surgery in 1979, for which she has continued to have chronic back pain for the last 45 years. He also has superimposed arthritis in his knees, status post total left knee replacement with postoperative pain in the anterior tibial region which radiates down to his foot with numbness. That seems to be getting worse over time. It is aggravated with standing and walking. There is no focal weakness of the foot to report. The chronic back pain and the numbness of the left distal leg has been treated through the years with numerous rounds of injections including [facility] and [facility]. These things generally were not all that helpful with the exception of 1 injection that he had done by someone at [facility] he can not recall and it was many years ago and it did help him for about a year. The patient is limited in the details he can give me about much of what is bothering him. He has so many aches and pains in overriding symptoms that when I asked him specifically what is bothering him he can point to numerous areas on his body that keep him from being able to walk. He does not have any pain radiating from his back down into his buttock and leg. He will take majx-kia-szqgrbd pain medications as needed to help with the discomfort but generally does not do much. He has done physical therapy etc. in the past with no success. PMH: History of hypertension, lifelong smoker, first-degree AV block, CAD, prostate cancer, high cholesterol, COPD, hyponatremia, left total knee replacement, 2 previous back surgeries Social hx: Still smokes about 4-5 cigarettes a day and has smoked his whole life. Does not drink any meaningful amount of alcohol or use any recreational drugs Medications: Amlodipine, atenolol, atorvastatin, Singulair, Flomax Allergies: None Physical exam: Patient is awake alert oriented, stands and walks with a flexed posture, he has full strength of bilateral lower extremities with diminished reflexes at the patella and the Achilles. He has a foot long midline incision in his lower lumbar region. It is well healed. pain and tenderness over his right SI joint region. Imaging review: Lumbar MRI reveals multilevel degenerative disc disease with evidence of foraminal stenosis on the left at L5, on the right at L4. There is lateral recess stenosis bilaterally in the L4-5 region as well. Impression: 78-year-old gentleman with complicated spinal history, chronic low back pain for 45 years related to 2 previous back operations done in 1978 and 1979 who has superimposed multiple aches and pains between his back, SI joint regions, left knee pain after his left TKR, tingling and pain going down his anterior tibial region as well that started right after his knee replacement it has been getting worse. He has been through numerous rounds of conservative treatment and more injections through the years that never seemed to really give him much relief. It is hard to exactly determine what could help this gentleman the best, as he has so many complaints about what is bothering him and it has been going on now for 45 years. He did specifically have 1 issue in the left anterior tibial region that started after his knee surgery. It radiates from the lateral aspect of his fibula and goes down the front of his tibial region into his foot. I am not sure if this could be a peroneal nerve problem or if this is some distal part of the L5 nerve that is being entrapped up in the lumbar area. I think an EMG would be helpful to figure that out. If it localize his best to the left L5 nerve, maybe Dr. Watkins would consider left L5 foraminotomy. He has chronic low back pain and that is an altogether different issue, that I think if was to be addressed would involve multilevel fusion. I do not think that is what he is looking for, so I am going to try to keep my focus on the distal left leg pain and see if we can figure that out. If the EMG is not helpful we could consider left L5 TFESI. Thank you for allowing us to care for your patient. The total time spent with this visit with this patient was 45 minutes reviewing history, physical exam, lumbar imaging review, and implementation of treatment plan or further diagnostic testing Yefri Watkins MD,PhD [facility] Coding Level of Care Code New Pt Level 4 (15201) Diagnoses Spinal stenosis of lumbar region with neurogenic claudication M48.062
[2024-06-11 09:29] VITALS: BMI 26.8
== END 2024-06-11 10:33 | disposition home or self-care (01) ==
LOC: HO.HNS 09:09
PROVIDERS: PCP Nurse Practitioner Family; Referring Provider Nurse Practitioner Family; Visit Provider Physician Assistant
DX: M48.062 Spinal stenosis, lumbar region with neurogenic claudication (principal)
CPT/HCPCS: 99204

== ENCOUNTER → 2024-06-11 09:08 | Outpatient (BNVA) | payer MEDICARE, SELFPAY | PROVIDERS: PCP Nurse Practitioner Family; Visit Provider Physician Assistant | DX: M48.062 Spinal stenosis, lumbar region with neurogenic claudication (principal) | CPT/HCPCS: 99202 ==

== ENCOUNTER → 2024-06-30 07:37 | Outpatient (REF) | payer MEDICARE, SELFPAY ==
--- NOTE | ~2024-06-30 | NM_ITS ---
Lexiscan Myocardial perfusion study Indication: Precordial chest pain Technique: The patient was brought in for a Lexiscan perfusion study on 06/30/2024 and was injected 0.4 mg of Lexiscan intravenously. Within a minute of this injection 30 mCi of sestamibi was given intravenously. Images were obtained using the SPECT gamma camera interlaced with the gating device. Images were obtained in supine position. Resting perfusion study was performed on 07/01/2024. Patient was administered 30 mCi of sestamibi intravenously at rest. Images were then obtained in supine position. Images obtained without without CT attenuation. Total DLP 90 mGy-cm. Images were processed with the software and compared side to side in short axis, horizontal long axis and vertical long axis views. Findings: The stress perfusion study showed nonattenuated images show moderately reduced uptake in the inferior wall including the inferoapical wall as well as inferoseptal wall of the LV myocardium. Attenuated corrected images show mildly reduced uptake in the distal septum and inferoapical wall of the LV myocardium.. The gated study shows normal LV systolic function with calculated LVEF of 62%. LV cavity is normal in size. The gated study shows normal systolic wall thickening and contraction of segments. Resting study shows nonattenuated images show mildly to moderately reduced uptake in the basal and mid inferior wall with improved uptake in the inferoapical and distal septal wall of the LV myocardium. Attenuated corrected images also show improved uptake in the inferoapical and distal septal wall of the LV myocardium.. Gating at rest reveals normal systolic wall motion with ejection fraction at greater than 55%. The findings are consistent with mild intensity reversible defect of the inferoapical as well as distal septum wall suggestive of ischemia.. NM/NM cardiolite stress test Impression: 1. Myocardial perfusion imaging study shows mild intensity inferoapical and distal septum was possibly in PDA territory 2. Gated LVEF is 62% 3. Transient ischemic dilatation not present Nondiagnostic changes on EKG. Electronically signed by: Clyde Guerra MD 07/01/2024 02:53 PM EDT
--- NOTE | 2024-06-30 07:40 | CA_ITS ---
Acquisition Time: 2024-06-30 07:59:30 Total Exercise Time: 00:02:00 Test Indications: ABN EKG CP Medications: AMLODIPINE ATENOLOL ATORVASTATIN SINGULAIR TAMSU;LOSIN Protocol: LEXISCAN Max HR: 73 BPM 51% of Pred: 142 BPM Max BP: 128/60 mmHG Max Work Load: 1.0 METS Pharmacological stress test with Lexiscan while pt moved his right leg and right arm, with reports of 4/10 chest tightness, SOB, dizziness and abdominal discomfort, with isolated PACs, with normotensive response to injection. Nondiagnostic EKG for ischemia. In recovery, pt treated with IVP Aminophylline to reverse Lexiscan after which pt feeliong back to baseline. Nuclear images pending. Test reviewed with Dr. Guerra. Referred By: De Barclay Electronically Signed By: Mau Carias
== END ==
LOC: HO.CARD 07:37
PROVIDERS: PCP Nurse Practitioner Family; Visit Provider Internal Medicine
DX: R07.2 Precordial pain (principal); I20.9 Angina pectoris, unspecified
CPT/HCPCS: 78452; 93017; A9500; J0280; J2785

== ENCOUNTER → 2024-06-30 07:40 | Outpatient (BNV) | payer MEDICARE, SELFPAY | PROVIDERS: PCP Nurse Practitioner Family | DX: R06.02 Shortness of breath (principal); I49.1 Atrial premature depolarization | CPT/HCPCS: 78452; 93016; 93018 ==

== ENCOUNTER 2024-07-09 08:22 | Outpatient (AMB) | payer MEDICARE, SELFPAY ==
[2024-07-09 08:55] VITALS: BP 120/62; PULSE 53; BMI 27.1
--- NOTE | 2024-07-09 08:55 | A.OFFVIS_ITS ---
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 Home Assessment Nurse: Home Assessment Nurse Present Allergies NICOTINE PATCH Adverse Reaction (Severe, Uncoded 07/09/24 08:57) REDNESS,BURNING Medication List - Last Reconciled 07/09/24 by SUSAN AvinaC amlodipine 5 mg PO DAILY aspirin (Adult Low Dose Aspirin) 81 mg PO DAILY atenolol 25 mg PO DAILY atorvastatin 20 mg PO BEDTIME 90 days montelukast 10 mg PO DAILY tamsulosin 0.4 mg PO BEDTIME HPI HPI follow up/ adriel mibi: Details: [place] is a 78-year-old male with past medical history of hypertension, hyperlipidemia, smoking, COPD, coronary calcifications on CT scan who recently underwent a stress test showing mild inferior apical and distal septal ischemia. He was started on aspirin and instructed to increase his atenolol dose. He now presents for follow-up. Today he reports that he did not increase the atenolol. He was concerned that his heart rate is already low. He did start taking aspirin as directed. He denies any concerning chest discomfort at rest or during activity. He will get occasional sharp pains in the chest region without pattern. He has mild shortness of breath with activity which he relates to smoking. No heart palpitations, lightheadedness, presyncope, syncope. Since describes himself as has being active. He smokes a half a pack of cigarettes each day. is present. [facility] Medical History Smoker Tubular adenoma of colon (~2010) Nicotine dependence, cigarettes, uncomplicated Dyslipidemia HTN (hypertension) AV bloc first degree Allergic rhinitis COPD (chronic obstructive pulmonary disease) Primary osteoarthritis of left knee Prostate cancer (~2018) Surgical History History of total left knee replacement (~2019) History of colonoscopy (~2010) History of prostate biopsy (~2018) History of partial colectomy (~2016) Status post lumbar microdiscectomy (~2002) Family History Mother Alzheimer disease Social History Housing: House Alcohol intake: current Alcohol intake frequency: 0-2 drinks per day Patient Tobacco Use Status: Current everyday Tobacco user Tobacco use type: Cigarette Cigarettes Per Day: 4 Years Smoked: 60 +/- e-Cigarette/Vaping Use: Never Used Second Hand Smoke Exposure: No service: No Current occupational status: retired Current occupation: Right Handed Cognitive needs: No Hearing needs: No Vision needs: No Review of Systems Const All systems reviewed & are unremarkable except as noted in HPI and below ENT Denies dizziness Card Denies chest pain, Denies chest pain at rest, Denies chest pain with activity, Denies rapid heart rate, Denies pedal edema, Denies edema, Denies leg edema, Denies lightheadedness, Denies palpitations, Denies dyspnea, Reports dyspnea on exertion and Denies orthopnea Resp Denies cough, Denies dyspnea and Reports dyspnea on exertion GI Denies hematochezia and Denies change in stool character Musc Denies abnormal gait, Denies limited range of motion, Denies muscle cramps, Denies muscle weakness, Denies numbness, Denies radiating pain into limb, Denies stiffness and Denies tingling Neuro Denies abnormal gait, Denies dizziness, Denies numbness and Denies tingling Endo Denies palpitations Physical Exam Vital Signs: Last Vital Signs Pulse 53 07/09/24 08:55 BP 120/62 07/09/24 08:55 BMI result Body Mass Index 27.1 Const General: cooperative, healthy appearing, comfortable and no acute distress Orientation/consciousness: patient oriented x3 Neck Neck: Yes normal visual inspection and Yes no JVD Resp Effort & Inspection: normal respiratory effort Auscultation: clear to auscultation bilaterally, no rales, no rhonchi and no wheezes Cardio Rate: regular rate Rhythm: regular rhythm Heart sounds: S1 normal heart sound present, S2 normal heart sound present, no gallops, no murmurs and no rubs Neuro General: patient oriented x3 Extrem General: Yes normal to inspection, No no pedal edema and No calf tenderness Psych Appearance: grossly normal Mental Status: mental status grossly normal Speech and movement: Normal speech and movement present Assessment & Plan Assessment & Plan (1) Atherosclerotic cardiovascular disease: Code(s): I25.10 - Atherosclerotic heart disease of [place] coronary artery without angina pectoris Category: Medical Plan: Coronary calcification seen on see end of the chest 03/07/2021. Nuclear stress test around that time was normal. On last visit he reported atypical chest discomfort a repeat stress test was done on 07/01/2023 showing mild inferior apical and distal septal ischemia, possibly in PDA territory. Test results reviewed with him in detail. He is currently denying anginal symptoms. Disc ussed options for further evaluation including CTA of the coronary arteries and diagnostic cardiac catheterization. At this time he is not interested in further evaluation. He says he is not having symptoms and he is undergoing treatment at the pain clinic for his chronic back and leg pain. He wants to deal with that 1st. Signs and symptoms of angina reviewed with him. Continue aspirin. Continue atorvastatin with LDL goal less than 70. Continue atenolol and amlodipine for good heart rate and blood pressure control. These meds are also dual antianginals agents. Cardiology follow-up 3 months, sooner if needed. (2) Abnormal nuclear stress test: Code(s): R94.39 - Abnormal result of other cardiovascular function study Category: Medical Plan: Asthma (3) HTN (hypertension): Code(s): I10 - Essential (primary) hypertension Category: Medical Plan: Blood pressure goal less than 130/80. Blood pressure controlled at this time. Continue atenolol and amlodipine. (4) Dyslipidemia: Code(s): E78.5 - Hyperlipidemia, unspecified Category: Medical Plan: LDL goal less than 70. Labs done 10/16/2023 showed LDL 77. Continue atorvastatin. (5) Nicotine dependence, cigarettes, uncomplicated: Comment: (current smoker, 40+pyh, now 3-4 cig/day - in LDCT program) Code(s): F17.210 - Nicotine dependence, cigarettes, uncomplicated Category: Medical Plan: Continues to smoke 1/2 pack of cigarettes a day. Trying to cut back. Plan Time spent on chart review, documentation, interview and assessment Medications: New atenolol continue 25 mg daily 25 mg PO DAILY 90 tabs 3RF Coding Level of Care Code Est Pt Level 4 (96234) Complex EM visit Add On G2211 Diagnoses Atherosclerotic cardiovascular disease I25.10 Abnormal nuclear stress test R94.39 HTN (hypertension) I10 Dyslipidemia E78.5 Nicotine dependence, cigarettes, uncomplicated F17.210 Time Spent (min) 36
== END 2024-07-09 09:38 | disposition home or self-care (01) ==
LOC: HO.HCS 08:22
PROVIDERS: PCP Nurse Practitioner Family; Visit Provider Nurse Practitioner Family
DX: I25.10 Atherosclerotic heart disease of native coronary artery without angina pectoris (principal); R94.39 Abnormal result of other cardiovascular function study; I10 Essential (primary) hypertension; E78.5 Hyperlipidemia, unspecified; F17.210 Nicotine dependence, cigarettes, uncomplicated
CPT/HCPCS: 99214; G2211

== ENCOUNTER → 2024-07-09 08:22 | Outpatient (BNVA) | payer MEDICARE, SELFPAY | PROVIDERS: PCP Nurse Practitioner Family; Visit Provider Nurse Practitioner Family | DX: I25.10 Atherosclerotic heart disease of native coronary artery without angina pectoris (principal); I10 Essential (primary) hypertension; E78.5 Hyperlipidemia, unspecified; R94.39 Abnormal result of other cardiovascular function study; F17.210 Nicotine dependence, cigarettes, uncomplicated | CPT/HCPCS: 99212 ==

== ENCOUNTER 2024-08-03 06:07 | Outpatient (REF) | payer MEDICARE, SELFPAY | END 2024-08-03 06:08 | disposition home or self-care (01) | LOC: CF 06:07 | PROVIDERS: Visit Provider Anesthesiology | DX: M48.062 Spinal stenosis, lumbar region with neurogenic claudication (principal); Z53.9 Procedure and treatment not carried out, unspecified reason | CPT/HCPCS: J2003; J3301; Q9967 ==

== ENCOUNTER 2024-09-10 14:04 | Outpatient (REF) | payer MEDICARE, SELFPAY ==
--- NOTE | 2024-09-10 14:07 | EMG_ITS ---
Chief complaint: Pain and paresthesias from below left knee to dorsal left foot. No footdrop but has some difficulty due to pain. History of left knee replacement 4-5 years ago. Remote history of lumbar surgery . Reason for referral: Evaluate for peroneal neuropathy versus radiculopathy Referred by: Yefri DEMARCO Procedure done: Left lower extremity NCS/EMG Precautions and/or limitations: Previous lumbar surgery The limb temperature was monitored continuously and remained between 32-36 degrees C during the performance of the NCS. Nerve Conduction Studies Anti Sensory Summary Table ?Stim Site NR Onset (ms) Norm Onset (ms) Peak (ms) Norm Peak (ms) O-P Amp (?V) Norm O-P Amp Site1 Site2 Delta-0 (ms) Dist (cm) Jesse (m/s) Norm Jesse (m/s) Left Sural Anti Sensory (Lat Mall) Calf ? 2.0 3.2 <4.0 12.8 >5.0 Calf Lat Mall 2.0 14.0 70 Motor Summary Table ?Stim Site NR Onset (ms) Norm Onset (ms) O-P Amp (mV) Norm O-P Amp iAmp (mV) Amp (1st) (%) Site1 Site2 Delta-0 (ms) Dist (cm) Jesse (m/s) Norm Jesse (m/s) Left Peroneal Motor (Ext Dig Brev) Ankle ? 7.0 <4.0 1.0 >2.5 1.5 100.0 Ankle Ext Dig Brev 7.0 0.0 B Fib ? 13.8 0.9 1.2 90.0 B Fib Ankle 6.8 31.5 46 >40 Poplt ? 16.5 0.7 1.0 70.0 Poplt B Fib 2.7 5.0 19 >40 Left Tibial Motor (Abd Lockwood Brev) Ankle ? 4.1 <5 8.0 >2.5 10.6 100.0 Ankle Abd [place] Brev 4.1 0.0 Knee ? 13.6 3.3 4.7 41.3 Knee Ankle 9.5 40.0 42 >40 EMG ?Side Muscle Nerve Root Ins Act Fibs Psw Amp Dur Poly Recrt Int Pat Comment Left AbdHallucis MedPlantar S1-2 Nml Nml Nml Nml Nml 0 Nml Complete Left AntTibialis Dp Br Peron L4-5 Nml Nml Nml Nml Nml 0 Nml Complete Left PostTibialis Tibial L5, S1 Nml Nml Nml Nml Nml 0 Nml Complete Left MedGastroc Tibial S1-2 Nml Nml Nml Nml Nml 0 Nml Complete Left VastusMed Femoral L2-4 Nml Nml Nml Nml Nml 0 Nml Complete Left Peroneus Long Sup Br Peron L5-S1 Nml Nml Nml Nml Nml 0 Nml Complete FINDINGS: Left peroneal nerve showed prolonged distal latency, small amplitude and slow conduction velocity across fibular neck. All other nerves tested were within normal. Concentric needle EMG was performed in selected muscles of the left lower extremity. Study did not reveal signs of electric abnormalities as shown in the table above. IMPRESSION: 1. This is an abnormal study. 2. 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 3. There is no electrodiagnostic evidence for tibial neuropathy, lumbosacral plexopathy, or lumbar radiculopathy. Thank you for your kind referral. Christi Watson MD, LATRICIA Board Certified, [place] Board of Physical Medicine and Rehabilitation (ABPMR) Board Certified, [place] Board of Electrodiagnostic Medicine (ABEM) [place] [id number] [facility]
== END 2024-09-10 14:05 | disposition home or self-care (01) ==
LOC: HO.NEURO 14:04
PROVIDERS: PCP Nurse Practitioner Family; Visit Provider Physician Assistant
DX: R20.0 Anesthesia of skin (principal); Z96.652 Presence of left artificial knee joint; M54.16 Radiculopathy, lumbar region; R94.131 Abnormal electromyogram [EMG]
CPT/HCPCS: 95886; 95908

== ENCOUNTER → 2024-09-10 14:07 | Outpatient (BNV) | payer MEDICARE, SELFPAY | PROVIDERS: PCP Nurse Practitioner Family; Visit Provider Physical Medicine & Rehabilitation | DX: R20.0 Anesthesia of skin (principal); R20.2 Paresthesia of skin; G57.32 Lesion of lateral popliteal nerve, left lower limb; Z96.652 Presence of left artificial knee joint | CPT/HCPCS: 95886; 95908 ==

== ENCOUNTER 2024-09-21 06:14 | Outpatient (REF) | payer MEDICARE, SELFPAY ==
--- NOTE | ~2024-09-21 | FL_ITS ---
EXAMINATION: FL GUIDANCE ONLY HISTORY: M48.061 - Spinal stenosis, lumbar region without neurogenic claudication COMPARISON: None available. TECHNIQUE: Fluoroscopy time: 0.4 minutes. Cumulative Dose: 5.75 mGy. DAP: 0.100 mGym2 Images: 4. FINDINGS: Fluoroscopic spot films of the lumbar spine in the AP projection demonstrate needles and contrast material in the regions of the left L4-5 and L5-S1 facet joints. FL/FL guidance in treatment room IMPRESSION: Fluoroscopy during procedure. Please see procedure report for additional information. Electronically signed by: Beltran Flynn MD 09/21/2024 10:57 AM EDT
== END 2024-09-21 06:15 | disposition home or self-care (01) ==
LOC: CF 06:14
PROVIDERS: Visit Provider Anesthesiology
DX: M48.061 Spinal stenosis, lumbar region without neurogenic claudication (principal); M54.17 Radiculopathy, lumbosacral region
CPT/HCPCS: 64483; 64484; J2003; J3301; Q9967

== ENCOUNTER 2024-09-21 10:01 | Outpatient (AMB) | payer MEDICARE, SELFPAY ==
[2024-09-21 10:08] VITALS: BP 128/61; PULSE 56; RESP 18; O2SAT 93
--- NOTE | 2024-09-21 10:08 | MHC.OFFVIS ---
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 Allergies NICOTINE PATCH Adverse Reaction (Severe, Uncoded 08/03/24 09:44) REDNESS,BURNING PFSH Medical History Smoker Tubular adenoma of colon (~2010) Nicotine dependence, cigarettes, uncomplicated Dyslipidemia HTN (hypertension) AV bloc first degree Allergic rhinitis COPD (chronic obstructive pulmonary disease) Primary osteoarthritis of left knee Prostate cancer (~2018) Surgical History History of total left knee replacement (~2019) History of colonoscopy (~2010) History of prostate biopsy (~2018) History of partial colectomy (~2016) Status post lumbar microdiscectomy (~2002) Family History Mother Alzheimer disease Social History Housing: House Alcohol intake: current Alcohol intake frequency: 0-2 drinks per day Patient Tobacco Use Status: Current everyday Tobacco user Tobacco use type: Cigarette Cigarettes Per Day: 4 Years Smoked: 60 +/- e-Cigarette/Vaping Use: Never Used Second Hand Smoke Exposure: No service: No Current occupational status: retired Current occupation: Right Handed Cognitive needs: No Hearing needs: No Vision needs: No Physical Exam Vital Signs: Last Vital Signs Pulse 56 09/21/24 10:08 Resp 18 09/21/24 10:08 BP 128/61 09/21/24 10:08 Pulse Ox 93 09/21/24 10:08 Oxygen Delivery Method Room Air 09/21/24 10:08 Assessment & Plan Assessment & Plan (1) Radiculopathy, lumbar region: Code(s): M54.16 - Radiculopathy, lumbar region Category: Medical (2) Radiculopathy, lumbosacral region: Code(s): M54.17 - Radiculopathy, lumbosacral region Category: Medical Plan Transforaminabilateral left L4- L5 and L5-S1 epidural steroid injection Informed consent was thoroughly explained to the patient before the procedure.? The patient came to the operating room.? He was positioned prone on operating table with a pillow under his abdomen.? Time-out was performed delineating correct site and side of the procedure, nature of the injection, name and date of of the patient. The lower back of the patient was prepped with ChloraPrep and draped with sterile utility towels.? C-arm was brought over the operating field and sq picture of L4 vertebra was demonstrated on the screen.? The left side was chosen as the side of the injection.? Tilting machine ipsilateral to the left at the level of L4 the most prominent picture of the left L4 pedicle was obtained on the screen.? 3 mm below the level of the lowest point of the pedicle projection to the skin small amount of lidocaine 1% 2 cc was injected to anesthetize the skin.? After that 5 in 22 gauge Quincke point needle was inserted through the skin wheal and was advanced to were the L4-5 foramina on anterior posterior , lateral and oblique views intermittently.? Injection of the contrast was performed demonstrating epidural and perineural spread of the contrast. No intravascular nor intrathecal spread of the contrast was noted. After that preservative-free lidocaine 1% 2 mL mixed with Kenalog 40 mg was injected into the needle. After that attention was shifted to L5-S1 left foramina. The lateral border of the superior articular process of S1 on the left was chosen as the target of the initial insertion of the needle. The projection of the target to the skin was injected with 2 mL of lidocaine 1%. 22 gauge 5 in needle was inserted through the skin wheal and advanced to were the target under anterior posterior and oblique views. When tip of the needle gently contacted the bone on the lateral surface of the superior articular process of S1 the needle was slightly deviated laterally advanced 3 mm and after that slightly deviated medially. On the sq image the tip of the needle was 3 mm within the silhouette of the spinal column. Injection of the contrast performed demonstrating no intrathecal and no intravascular spread of the contrast. After that injection of the preservative free lidocaine 1% 2 mL mixed with Kenalog 40 mg was performed. Upon completion of the injection the needle was withdrawn and sterile Band-Aid was applied. The patient tolerated the procedure well although felt appropriate numbness in the left lower extremity. Coding Level of Care Code Procedure Only Diagnoses Radiculopathy, lumbar region M54.16 Radiculopathy, lumbosacral region M54.17
== END 2024-09-21 10:51 | disposition home or self-care (01) ==
LOC: HO.PMCPRC 10:01
PROVIDERS: PCP Nurse Practitioner Family; Visit Provider Anesthesiology
DX: M54.16 Radiculopathy, lumbar region (principal); M54.17 Radiculopathy, lumbosacral region
CPT/HCPCS: 64483; 64484

== ENCOUNTER 2024-10-11 12:14 | Outpatient (AMB) | payer MEDICARE, SELFPAY ==
--- NOTE | 2024-10-11 12:38 | A.OFFVIS_ITS ---
Vital Signs 10/11/24 12:39 Height 5 ft 8 in Weight 178 lb BMI 27.1 BP 126/66 Blood Pressure Location Lt brachial Position Sitting Pulse 56 Pulse Source Pulse Oximeter Intake Visit Reasons: 3mth f/up Allergies NICOTINE PATCH Adverse Reaction (Severe, Uncoded 08/03/24 09:44) REDNESS,BURNING Medication List - Last Reconciled 10/11/24 by De Barclay MD amlodipine 5 mg PO DAILY aspirin (Adult Low Dose Aspirin) 81 mg PO DAILY atenolol 25 mg PO DAILY atorvastatin 20 mg PO BEDTIME 90 days montelukast 10 mg PO DAILY tamsulosin 0.4 mg PO BEDTIME HPI Comments Details: [place] returns for follow-up. Many comorbidities including chronic smoking, COPD, hypertension dyslipidemia. It continues to have the chest discomfort after activity. This happens after doing things like working in the [employer]. Somewhat worrisome for angina but he has had this for quite some time. In the past, cardiac catheterization was discussed and he was not too keen but now more amenable. Otherwise, he is on appropriate medical therapy. [facility] Medical History Smoker Tubular adenoma of colon (~2010) Nicotine dependence, cigarettes, uncomplicated Dyslipidemia HTN (hypertension) AV bloc first degree Allergic rhinitis COPD (chronic obstructive pulmonary disease) Primary osteoarthritis of left knee Prostate cancer (~2018) Surgical History History of total left knee replacement (~2019) History of colonoscopy (~2010) History of prostate biopsy (~2018) History of partial colectomy (~2016) Status post lumbar microdiscectomy (~2002) Family History Mother Alzheimer disease Social History Housing: House Alcohol intake: current Alcohol intake frequency: 0-2 drinks per day Patient Tobacco Use Status: Current everyday Tobacco user Tobacco use type: Cigarette Cigarettes Per Day: 4 Years Smoked: 60 +/- e-Cigarette/Vaping Use: Never Used Second Hand Smoke Exposure: No service: No Current occupational status: retired Current occupation: Right Handed Cognitive needs: No Hearing needs: No Vision needs: No Review of Systems Const Denies weakness ENT Denies dizziness Card Denies chest pain, Denies chest pain with activity, Denies syncope, Denies rapid heart rate, Denies pedal edema, Denies edema, Denies leg edema, Denies lightheadedness, Denies palpitations, Denies dyspnea, Denies dyspnea on exertion and Denies orthopnea Resp Denies cough, Denies dyspnea and Denies dyspnea on exertion GI Denies hematochezia and Denies change in stool character Musc Denies abnormal gait, Denies muscle cramps, Denies muscle weakness, Denies numbness, Denies radiating pain into limb and Denies tingling Neuro Denies abnormal gait, Denies dizziness, Denies syncope, Denies numbness, Denies tingling and Denies weakness Endo Denies palpitations Physical Exam Vital Signs: Last Vital Signs Pulse 56 10/11/24 12:39 BP 126/66 10/11/24 12:39 BMI result Body Mass Index 27.1 Const General: comfortable and no acute distress Orientation/consciousness: patient oriented x3 HEENT Other: Unremarkable Head: Yes normal to inspection Neck Neck: Yes normal visual inspection Chest Chest palpation & inspection: normal inspection of the chest Resp Auscultation: clear to auscultation bilaterally Cardio Palpation: normal PMI Heart sounds: S1 normal heart sound present, S2 normal heart sound present, no gallops, no murmurs and no rubs GI Palpation (GI): Soft to palpation Back/Spine/Pelvis Other: unremarkable Skin General skin exam: no rashes or lesions noted Neuro General: patient oriented x3 Extrem General: Yes normal to inspection Psych Mental Status: mental status grossly normal Assessment & Plan Assessment & Plan (1) Atherosclerotic cardiovascular disease: Code(s): I25.10 - Atherosclerotic heart disease of [place] coronary artery without angina pectoris Category: Medical Plan: In the most recent stress test, question of ischemia in the PDA territory. It continues to have chest discomfort after exertion. Already on beta-blockers and we cannot increase the dose as he has prolonged NV. We discussed about diagnostic catheterization and he is agreeable. We will schedule that in the near future. May use sublingual nitroglycerin as necessary. (2) HTN (hypertension): Code(s): I10 - Essential (primary) hypertension Category: Medical Qualifiers: Hypertension type: primary hypertension Qualified Code(s): I10 - Essential (primary) hypertension Plan: Stable. No changes. (3) Smoker: Code(s): F17.200 - Nicotine dependence, unspecified, uncomplicated Category: Social Hx Plan: Ideally, needs to quit completely but not clear if he will. Plan Discussion Notes I discussed with the patient the likelihood of coronary artery disease and the need for an angiogram to confirm the diagnosis and assess the need for stenting. We talked about the risks and benefits of the procedure, including the potential for staged interventions if multiple blockages are found. The patient was informed about the use of nitroglycerin for chest pain and the importance of smoking cessation. Patient was informed and verbally consented to the use of an ambient scribe for clinic note documentation during this visit. Orders: Orders Cardiac Cath LT Diagnostic Today I25.10 - Atherosclerotic heart disease of [place] coronary artery without angina pectoris Basic Metabolic Panel Today I25.10 - Atherosclerotic heart disease of [place] coronary artery without angina pectoris Complete Blood Count no Diff Today I25.10 - Atherosclerotic heart disease of [place] coronary artery without angina pectoris Prothrombin Time INR Today I25.10 - Atherosclerotic heart disease of [place] coronary artery without angina pectoris Medications: New nitroglycerin do not exceed 3 doses per episode 0.4 mg sublingual Q5M PRN 30 tabs 5RF chest pain I25.10 - Atherosclerotic heart disease of [place] coronary artery without angina pectoris, R07.2 - Precordial pain Patient Instructions: - Schedule an angiogram to evaluate coronary artery disease. - Use nitroglycerin sublingually when experiencing chest pain. - Continue efforts to quit smoking. Coding Level of Care Code Est Pt Level 4 (87004) Complex EM visit Add On G2211 Diagnoses Atherosclerotic cardiovascular disease I25.10 Primary hypertension I10 Hypertension type: primary hypertension Smoker F17.200
[2024-10-11 12:39] VITALS: BP 126/66; PULSE 56; BMI 27.1
== END 2024-10-11 13:17 | disposition home or self-care (01) ==
LOC: HO.HCS 12:16
PROVIDERS: PCP Nurse Practitioner Family; Visit Provider Internal Medicine
DX: I25.10 Atherosclerotic heart disease of native coronary artery without angina pectoris (principal); I10 Essential (primary) hypertension; F17.200 Nicotine dependence, unspecified, uncomplicated
CPT/HCPCS: 99214; G2211

== ENCOUNTER → 2024-10-11 12:14 | Outpatient (BNVA) | payer MEDICARE, SELFPAY | PROVIDERS: PCP Nurse Practitioner Family; Visit Provider Internal Medicine | DX: I25.10 Atherosclerotic heart disease of native coronary artery without angina pectoris (principal); I10 Essential (primary) hypertension; F17.210 Nicotine dependence, cigarettes, uncomplicated | CPT/HCPCS: 99212 ==

== ENCOUNTER 2024-10-19 09:48 | Outpatient (AMB) | payer MEDICARE, SELFPAY ==
[2024-10-19 09:51] VITALS: BP 159/70; PULSE 60; O2SAT 98; BMI 26.8
--- NOTE | 2024-10-19 09:51 | A.OFFVIS_ITS ---
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 Chang. Patient reports significant pain relief compared to previous injections. Despite the relief, the patient notes no improvement in walking ability and persistent muscle cramps, particularly in the calves, which occur frequently at night and while walking. The patient has a history of left knee pain following a left knee replacement, which has not resolved satisfactorily. The knee replacement was followed by cortisone injections, which provided temporary relief. The patient expresses interest in exploring further treatment options, including the possibility of gel and cortisone knee injections. Additionally, the patient underwent EMG study that revealed left peroneal neuropathy, which may be contributing to the symptoms experienced in the lower extremities. Patient reports he is undergoing cardiac catheterization on 12/11/24 to rule out blockage per Cardiology. He continues to take daily aspirin 81 mg. Denies any recent cough, cold, infection, fever or any other significant changes in medical history since last office visit. Past Procedures: 09/21/24: Left L4-L5, L5-S1 TFESI-100% ongoing pain relief for back, continues with bilateral leg and left knee pain PRIOR: Patient presents today for follow up to discuss recent lumbar spine MRI results. Patient continues to experience significant low back pain on the right, especially when getting up from sitting position and left leg numbness with heaviness and weakness. He reports after previous left knee replacement, he developed numbness and heaviness in the left leg which has progressed to frequent episodes of numbness and balance issues. The symptoms include extensive numbness from the knee down to the front of foot, further exacerbated by prolonged sitting or any uneven walking surfaces that cause the patient's foot to fall asleep. Initial treatment at other pain clinics involved lumbar spinal injections which initially lasted for extended periods, but more recent injections provide diminished relief. He is hesitant towards additional back surgery but is willing to consider Neurosurgery evaluation at [facility] for minimally invasive decompression. Patient ambulates with slow antalgic gait in semi-flexed forward position without assistive devices. He notes that he has a lot work at home and cane or walker would be in his way. Denies any fever or chills, abdominal or groin pain, bladder or bowel dysfunction or saddle anesthesia. Reports left lower extremity weakness due to heaviness and numbness. - Onset and Timing: Chronic pain with significant symptoms after knee replacement. - Quality and Character: Numbness and sensation of the foot falling asleep. - Primary Location: Lower back and left leg, from knee to foot. - Exacerbating Factors: Sitting and walking. - Relieving Factors: Previously managed with injections. - Interfered Activities: Causes loss of balance, difficulty performing daily tasks. - Affect: Pain leads to physical instability and requires careful navigation when walking. - Analgesia: Injections provided previous relief but are now less efficacious - Adverse Effects: Recent injections less effective in managing symptoms. - Activities of Daily Living: Difficulty with balance and walking; requires careful navigation and support. - Aberrant Drug-Related Behaviors: No behaviors indicating medication misuse were mentioned. PRIOR: Patient is a pleasant 78 years old male with history of lumbar microdiscectomy x2 and left TKA, chronic low back pain, advanced lumbar disc degenerative disease and spondylosis, left shoulder arthritis (multiple cortisone shoulder injections), prostate cancer and current tobacco smoker, presents today for initial evaluation of acute on chronic low back pain with radiculopathy and left knee pain. Denies any recent trauma, injury or falls. Patient reports back pain has been present since late teenager years. Currently, his back pain is axial and also radiates into left knee and anterior and lateral taylor with associated stabbing, aching, pins and needles and burning sensations in his lower leg and foot. His walking capacity is limited to 10 min, standing 20-30 min with can or holding on to something. Reports most severe back pain with bending down and flexing forward. Reports anterior left knee pain without swelling, burning, or erythema. He is able to sit up to 30 min on soft surfaces. Patient states he often looses balance when getting up from sitting to standing due to increase in left leg and back pain. He cannot functional normally and wakes up frequently at night due to pain. He completed physical therapy in the past but cannot pursue PT at this time due to significant low back pain. Pain is rated 8-10/10. Patient has tried OTC medications and topicals but prefers to avoid medications. Denies any fever or chills, abdominal or groin pain, foot drop, bladder or bowel dysfunction or saddle anesthesia. He reports frequent episodes of dizziness with h/o first degree AV block and currently on atenolol which was recently decreased per Cardiology. Patient previously underwent multiple interventional treatments for back and knee pain at [facility] and [facility], as well as multiple cortisone knee injections by Dr. Aguillon at [facility]. Past Procedures at [facility]: 05/31/2014: Right L4-L5 Interlaminar ONI with immediate and complete pain relief 04/07/2018: Bilateral L4-L5 and L5-S1 facet injections 05/11/2018: Lumbar medial branch blocks 06/29/2019: Lumbar medial branch blocks [facility]: 11/30/2021: Lumbar ONI 12/11/2021: Right knee Euflexxa injection (1st injection) 12/21/2021: Right knee Euflexxa injection (2nd injection) 12/27/2021: Right knee Euflexxa injection (3rd injection) 03/15/2022: Knee injection 05/10/2022: Lumbar medial branch RFA 05/29/2022: Left knee cortisone injection Oswestry Low Back Disability Score=26 (severe disability) Location: Lower back radiates down LLE, left knee pain Duration: Chronic pain for many years, worsening for past 3 months Characteristics of symptom or complaint: Aching, shooting, burning, stabbing, shooting, numbness, tingling, sore Aggravating or associated factors: Walking, climbing stairs, bending, lifting, sitting to standing, movements Relieving factors: Back brace, Tylenol, heat/ice therapy, activity modifications Treatment: PT, knee and back injections, lumbar RFA, back surgery x2, left TKA PFSH Medical History Smoker Tubular adenoma of colon (~2010) Nicotine dependence, cigarettes, uncomplicated Dyslipidemia HTN (hypertension) AV bloc first degree Allergic rhinitis COPD (chronic obstructive pulmonary disease) Primary osteoarthritis of left knee Prostate cancer (~2018) Surgical History History of total left knee replacement (~2019) History of colonoscopy (~2010) History of prostate biopsy (~2018) History of partial colectomy (~2016) Status post lumbar microdiscectomy (~2002) Family History Mother Alzheimer disease Social History Housing: House Alcohol intake: current Alcohol intake frequency: 0-2 drinks per day Patient Tobacco Use Status: Current everyday Tobacco user Tobacco use type: Cigarette Cigarettes Per Day: 4 Years Smoked: 60 +/- e-Cigarette/Vaping Use: Never Used Second Hand Smoke Exposure: No service: No Current occupational status: retired Current occupation: Right Handed Cognitive needs: No Hearing needs: No Vision needs: No Review of Systems Const Details: - Musculoskeletal: Reports persistent muscle cramps, particularly at night, and knee pain post-replacement. Denies improvement in walking ability. - Neurological: Reports calf cramping and difficulty with walking. All systems reviewed & are unremarkable except as noted in HPI and below Physical Exam Vital Signs: Last Vital Signs Pulse 60 10/19/24 09:51 BP 159/70 H 10/19/24 09:51 Pulse Ox 98 10/19/24 09:51 Oxygen Delivery Method Room Air 10/19/24 09:51 BMI result Body Mass Index 26.8 General: Appears afebrile. Alert and oriented. Mood and affect appropriate. Follows and participates in conversation appropriately. Respiratory effort is unlabored. No cough. Able to transition from sit to stand unassisted. Ambulates with normal heel strike and toe off on the right, increased left knee pain with walking/climbing. General: Yes no CVA tenderness Back/Spine/Pelvis Back: no CVA tenderness Cervical Spine: cervical ROM normal and No Cervical spine tenderness Thoracic/Lumbar Spine: thoracic and lumbar spine normal to inspection, Thoracic/lumbar spine scar(s), Lasegue's sign positive on the left and diffuse, pain with thoraco-lumbar ROM (mild), paraspinal muscle tenderness, thoraco- lumbar ROM limited, Thoracic/lumbar scoliosis, No thoracic spinal tenderness and No lumbar spinal tenderness Sacroiliac joints: bilaterally nontender Extrem General: Yes capillary refill normal, Yes no clubbing, cyanosis or edema and Yes calf tenderness (with walking and at night) Left lower extremity: knee (Well healed scar. Mildly limited ROM. ) Details: normal to inspection, tenderness (anterior knee +allodynia) Location: of the patella, of the medial joint line and of the lateral joint line and crepitus; no swelling, no ecchymosis, no deformity and no unusual warmth Results Reviewed Results Reviewed: XR LUMBOSACRAL SPINE 05/04/24 CLINICAL INFORMATION: M54.50 - Low back pain, unspecified COMPARISON: 07/09/2018. TECHNIQUE: Three views of the lumbosacral spine. FINDINGS: There is a minimal left convex scoliosis, apex at L4. There is a normal lumbar lordosis. No fracture, compression deformity, traumatic subluxation, or suspicious bone lesion. There is a 2 mm degenerative retrolisthesis of L2 on L3, and L3 on L4. Moderate to severe disc degeneration spanning L3-S1. Associated facet degeneration at these levels. Soft tissues demonstrate diffuse vascular calcifications. There are fiducial markers in the inferior pelvis. IMPRESSION: 1. No acute findings lumbar spine. 2. Moderate spondylosis, most significant spanning L3-S1. XR KNEE, LEFT 03/29/21 CLINICAL INFORMATION: Left knee pain COMPARISON: September 08, 2020 FINDINGS: Patient is status post left total knee arthroplasty. Prosthetic components appear in good position. No acute fracture or dislocation is evident. No significant effusion is seen. No evidence of prosthetic loosening. IMPRESSION: Status post left total knee arthroplasty without significant abnormality appreciated. MR LUMBAR SPINE wo con 05/23/24 MR of the lumbar spine without contrast Comparison: CR/SR - XR LUMBAR SPINE 2-3V - 05/04/24 10:05 EST CR - LUMBAR SPINE 2TO 3 [id number] - 07/09/18 16:26 EDT MR - [place] LUMBAR [place]INE [place] [id number] - 04/05/14 14:37 EST Findings: 2 mm retrolisthesis of L2 on L3, degenerative. 3 mm retrolisthesis of L4 on L5, degenerative. There is a mild amount Modic type 1 change at L3/L4 and L5/S1 at the left aspect, also present on the prior study. Small cystic change and L4. Bone marrow signal is otherwise normal. No cord expansion or abnormal signal intensity. The conus medullaris terminates at L1, which is normal. The cauda equina is unremarkable. L1/L2: No disc herniation. Mild facet joint and ligamentum flavum hypertrophy. No central canal stenosis. No lateral recess stenosis. No foraminal stenosis. L2/L3: 5 mm disc bulge most prominent in the left subarticular zone. Moderate facet joint and ligamentum flavum hypertrophy. Fluid in the facet joints. Mild central canal stenosis. Mild right and severe left lateral recess stenosis. No right and mild left foraminal stenosis. L3/L4: 5 mm broad-based disc bulge with an annular fissure. Moderate facet joint and ligamentum flavum hypertrophy. Fluid in the left facet joint. [id number] central canal stenosis. Severe bilateral lateral recess stenosis. Moderate right [id number] left foraminal stenosis, similar to the prior study. L4/L5: 6 mm broad-based disc bulge with an annular fissure. Severe facet joint and ligamentum flavum hypertrophy. Moderate central canal stenosis. Severe bilateral lateral recess stenosis, greater on the left. Severe right and moderate left foraminal stenosis, similar to the prior study. L5/S1: Disc desiccation with a disc/osteophyte measuring 5 mm. Severe facet joint hypertrophy. Mild ligamentum flavum hypertrophy. Trace amount of fluid in the right facet joint. Mild central canal stenosis. Moderate to severe bilateral lateral recess stenosis. Mild right moderate to severe left foraminal stenosis, greater than on the prior study. Impression: Multilevel degenerative change, detailed above. Assessment & Plan Assessment & Plan (1) Claudication of both lower extremities: Code(s): I73.9 - Peripheral vascular disease, unspecified Category: Medical (2) Bilateral calf pain: Code(s): M79.661 - Pain in right lower leg; M79.662 - Pain in left lower leg Category: Medical (3) Lower back pain: Comment: chronic Code(s): M54.50 - Low back pain, unspecified Category: Medical (4) Left knee pain: Code(s): M25.562 - Pain in left knee Category: Medical (5) Lumbar post-laminectomy syndrome: Code(s): M96.1 - Postlaminectomy syndrome, not elsewhere classified Category: Medical (6) Lumbar spinal stenosis: Code(s): M48.061 - Spinal stenosis, lumbar region without neurogenic claudication Category: Medical (7) Lumbosacral spondylosis: Code(s): M47.817 - Spondylosis without myelopathy or radiculopathy, lumbosacral region Category: Medical (8) History of total left knee replacement: Onset Date: ~2019 Comment: (Lt TKR - Dr. Aguillon, [facility] - 10/04/2019) Code(s): Z96.652 - Presence of left artificial knee joint Category: Surgical Plan I discussed with the patient the effectiveness of the recent epidural injection and the potential for further interventions such as gel vs cortisone knee injections, contingent on insurance approval. We also reviewed the option of peripheral neurostimulation with Sprint PNS trial, which requires a diagnostic nerve block to determine eligibility. Bilateral Venous Duplex US to further evaluate bilateral calf pain with walking and at night, and rule out DVT. Schedule Left knee steroid injection with local and fluoroscopy. Expectations, risks and benefits were reviewed. Patient is aware he will be contacted to schedule this procedure. All questions and concerns have been answered and patient agreed with the plan. Follow up after injection and sooner as needed. Patient was informed and verbally consented to the use of an ambient scribe for clinic note documentation during this visit. Orders: Orders US venous duplex LE Today I73.9 - Peripheral vascular disease, unspecified, M79.661 - Pain in right lower leg, M79.662 - Pain in left lower leg Coding Level of Care Code Est Pt Level 4 (72990) Complex EM visit Add On G2211 Diagnoses Claudication of both lower extremities I73.9 Bilateral calf pain M79.661; M79.662 Lower back pain M54.50 Left knee pain M25.562 Lumbar post-laminectomy syndrome M96.1 Lumbar spinal stenosis M48.061 Lumbosacral spondylosis M47.817 History of total left knee replacement Z96.652
== END 2024-10-19 10:14 | disposition home or self-care (01) ==
LOC: HO.PMC 09:49
PROVIDERS: PCP Nurse Practitioner Family; Visit Provider Nurse Practitioner Family
DX: I73.9 Peripheral vascular disease, unspecified (principal); M79.661 Pain in right lower leg; M79.662 Pain in left lower leg; M54.50 Low back pain, unspecified; M25.562 Pain in left knee; M96.1 Postlaminectomy syndrome, not elsewhere classified; M48.061 Spinal stenosis, lumbar region without neurogenic claudication; M47.817 Spondylosis without myelopathy or radiculopathy, lumbosacral region; Z96.652 Presence of left artificial knee joint
CPT/HCPCS: 99214; G2211

== ENCOUNTER → 2024-10-19 09:48 | Outpatient (BNVA) | payer MEDICARE, SELFPAY | PROVIDERS: PCP Nurse Practitioner Family; Visit Provider Nurse Practitioner Family | DX: M79.661 Pain in right lower leg (principal); M79.662 Pain in left lower leg; M25.562 Pain in left knee; M54.50 Low back pain, unspecified; M96.1 Postlaminectomy syndrome, not elsewhere classified; M48.061 Spinal stenosis, lumbar region without neurogenic claudication; M47.817 Spondylosis without myelopathy or radiculopathy, lumbosacral region; I73.9 Peripheral vascular disease, unspecified; Z96.652 Presence of left artificial knee joint | CPT/HCPCS: 99212 ==

== ENCOUNTER 2024-10-22 12:50 | Outpatient (REF) | payer MEDICARE, SELFPAY ==
--- NOTE | ~2024-10-22 | US_ITS ---
EXAMINATION: US LOWER EXTREMITY VEINS BILATERAL HISTORY: I73.9 - Peripheral vascular disease, b/l calf pain COMPARISON: There are no prior studies available for comparison. TECHNIQUE: Duplex and color Doppler sonographic examination of the deep venous system of the bilateral lower extremities was performed. FINDINGS: The right common femoral, superficial femoral, and popliteal veins are patent demonstrating normal compressibility, spontaneous flow, and augmentation. There is a normal color and spectral Doppler waveform appearance of the visualized deep venous system above the knee. The posterior tibial and peroneal veins are patent. The left common femoral, superficial femoral, and popliteal veins are patent demonstrating normal compressibility, spontaneous flow, and augmentation. There is a normal color and spectral Doppler waveform appearance of the visualized deep venous system above the knee. The posterior tibial and peroneal veins are patent. US/US venous duplex LE BI IMPRESSION: No evidence of acute DVT in the bilateral lower extremities. Electronically signed by: Beltran Flynn MD 10/22/2024 01:23 PM EDT
== END 2024-10-22 12:51 | disposition home or self-care (01) ==
LOC: HO.US 12:50
PROVIDERS: PCP Nurse Practitioner Family; Visit Provider Nurse Practitioner Family
DX: M79.661 Pain in right lower leg (principal); M79.662 Pain in left lower leg; I73.9 Peripheral vascular disease, unspecified
CPT/HCPCS: 93970

== ENCOUNTER → 2024-10-22 12:51 | Outpatient (BNV) | payer MEDICARE, SELFPAY | PROVIDERS: PCP Nurse Practitioner Family; Visit Provider Radiology Diagnostic Radiology | DX: M79.661 Pain in right lower leg (principal); M79.662 Pain in left lower leg; I73.9 Peripheral vascular disease, unspecified | CPT/HCPCS: 93970 ==

== ENCOUNTER 2024-11-03 08:50 | Outpatient (AMB) | payer MEDICARE, SELFPAY ==
--- NOTE | 2024-11-03 08:56 | A.OFFPC_ITS ---
Vital Signs 11/03/24 08:57 11/03/24 09:26 Height 5 ft 8 in Weight 170 lb BMI 25.8 BP 122/70 Blood Pressure Location Lt brachial Position Sitting Pulse 45 L 62 Pulse Source Pulse Oximeter Temp 97.7 F Temp Source Oral Pulse Oximetry (%) 98 Oxygen Delivery Method Room Air Intake Visit Reasons: 6m follow up Operating Room Technician Required: No Accompanied by: Self / Same As Patient Allergies NICOTINE PATCH Adverse Reaction (Severe, Uncoded 08/03/24 09:44) REDNESS,BURNING Tobacco use date assessed: 11/03/24 Fall risk assessment: No Falls in past year Last assessed Fall Risk: 11/03/24 Dental Screening Dental Screen Date: 04/17/23 Did you have a dental visit in the last 12 months?: No Did you have a dental problem in the last 6 months where you did not have access to dental care?: No Was dental information given to patient?: Patient declined (pt has dentures) HPI 6m follow up HPI Details Chief Complaint The patient presents for follow-up of hypertension and hyperlipidemia. History of Present Illness The patient is a 79-year-old male presenting with follow-up for hypertension and hyperlipidemia. He reports intermittent chest discomfort, which he has experienced for years. Although he has nitroglycerin, he has not yet used it. He follows up regularly with a school business manager and a biblical languages professor. The patient has ongoing orthopedic and nerve-related issues, particularly in the left lower extremity and back. He receives back injections, which provide relief for approximately four months. He is considering gel injections for his knee to improve mobility and facilitate walking or cycling. He has a history of prostate carcinoma for which he underwent radiation therapy. He regularly sees a urologist, and a PSA test is planned. The patient continues to smoke and is not interested in quitting at this time. Social History - Smoking: Continues to smoke and is not interested in quitting. Health Maintenance - Low dose CT scans for lung cancer scre ening are planned. - PSA test is planned for prostate cance r monitoring. Review of Systems - Cardiovascular: Reports intermittent c hest discomfort. Denies use of nitr oglycerin. - Musculoskeletal: Reports ongoing ortho pedic and nerve-related issues, particularly in the left lower extremity and back. Physical Exam General: Cooperative, healthy appearing, comfortable, no acute distress and well developed Orientation: Patient oriented x3 Limitations: No limitations Head: Normal to inspection Ears: Hearing grossly normal bilaterally Nose: Normal external nose present Face and sinus: Normal facial exam Eyes: Appearance normal, both eyes and all related structures Neck: Normal visual inspection and Yes full ROM Respiratory: normal resp effort, coarse sounding bilat Cardiovascular: Regular rate and rhythm. Normal S1 and S2 GI: Normal to inspection. Soft to palpation and nontender Neuro: Patient oriented x3 Extremities: LLE weakness noted Results Plan The patient will continue to manage hypertension and hyperlipidemia with regular follow-ups. Intermittent chest discomfort will be monitored, and the patient is advised to use nitroglycerin if needed. Regular cardiology and pulmonology follow-ups are recommended. For orthopedic and nerve-related issues, the patient will continue receiving back injections and consider gel injections for the knee to improve mobility. Encouragement to increase physical activity, such as walking or cycling, is advised. A PSA test is planned for prostate cancer monitoring, and regular urology follow-ups will continue. Low dose CT scans are planned for lung cancer screening due to the patient's smoking history. [facility] Medical History Smoker Tubular adenoma of colon (~2010) Nicotine dependence, cigarettes, uncomplicated Dyslipidemia HTN (hypertension) AV bloc first degree Allergic rhinitis COPD (chronic obstructive pulmonary disease) Primary osteoarthritis of left knee Prostate cancer (~2018) Surgical History History of total left knee replacement (~2019) History of colonoscopy (~2010) History of prostate biopsy (~2018) History of partial colectomy (~2016) Status post lumbar microdiscectomy (~2002) Family History Mother Alzheimer disease Social History Housing: House Alcohol intake: current Alcohol intake frequency: 0-2 drinks per day Patient Tobacco Use Status: Current everyday Tobacco user Tobacco use type: Cigarette Cigarettes Per Day: 4 Years Smoked: 60 +/- e-Cigarette/Vaping Use: Never Used Second Hand Smoke Exposure: No service: No Current occupational status: retired Current occupation: Right Handed Cognitive needs: No Hearing needs: No Vision needs: No Questionnaire PHQ-9 Over the last 2 weeks, how often have you been bothered by any of the following problems? 1. Little interest or pleasure in doing things: nearly every day 2. Feeling down, depressed, or hopeless: not at all 3. Trouble falling or staying asleep, or sleeping too much: not at all 4. Feeling tired or having little energy: not at all 5. Poor appetite or overeating: not at all 6. Feeling bad about yourself - or that you are a failure or have let yourself or your family down: not at all 7. Trouble concentrating on things, such as reading the newspaper or watching television: not at all 8. Moving or speaking so slowly that other people could have noticed. Or the opposite - being so fidgety or restless that you have been moving around a lot more than usual: not at all 9. Thoughts that you would be better off or of hurting yourself in some way: not at all Total score: 3 Depression Screening Interpretation: Negative Depression Screening Done: Yes 82861 - PHQ-9 Billing: Yes Source: Developed by Drs. Beltran Ken, Kathy Lindo, Oleg Duong and colleagues, with an educational nithya from [employer]. Thrive Questionnaire Date Thrive assessed: 10/27/24 I am a: Patient What is your living situation today?: I have a steady place to live Within the past 12 months, did the food you bought not last and you didn't have the money to get more?: I choose not to answer this question Within the past 12 months, did you worry whether your food would run out before you got money to buy more?: I choose not to answer this question Do you have trouble paying for medicines?: No Do you have trouble getting transportation to medical appointments?: No Do you have trouble paying your heating and electricity bill?: No Do you have trouble taking care of your child, family member or friend?: I choose not to answer this question Do you have trouble with day-to-day activities such as bathing, preparing meals, shopping, managing finances, etc.?: I choose not to answer this question Are you currently unemployed and looking for a job?: I choose not to answer this question Are you interested in more education?: No Please select the resources that you would like help with: Utilities THRIVE Score: 0 AUDIT C Alcohol Use Questionnaire (AUDIT-C) 1. How often do you have a drink containing alcohol?: 4 or more times a week Total Score: 4 TRAVIS-7 AMB Questionnaire TRAVIS-7 Date TRAVIS - 7 assessed: 11/03/24 Feeling nervous, anxious, or on edge: 0 = Not at all Not being able to stop or control worryin = Not at all Worrying too much about different things: 0 = Not at all Trouble relaxin = Several days Being so restless that it is hard to sit still: 2 = More than half the days Becoming easily annoyed or irritable: 2 = More than half the days Feeling afraid as if something awful might happen: 0 = Not at all Total TRAVIS-7 score (0-4 normal; 5-9 mild; 10-14 moderate; 15-21 severe): 5 Source: Developed by Drs. Beltran Ken, Kathy Lindo, Oleg Duong and colleagues, with an educational nithya from [employer]. TRAVIS-7 Assessment Billing TRAVIS-7 Assessment Tool: TRAVIS-7 Assessment 28685 Physical exam (Primary Care) Vital Signs: Last Vital Signs Temp 97.7 F 11/03/24 08:57 Pulse 45 L 11/03/24 08:57 BP 122/70 11/03/24 08:57 Pulse Ox 98 11/03/24 08:57 Oxygen Delivery Method Room Air 11/03/24 08:57 BMI result Body Mass Index 25.8 Tobacco/Smoking Status: Tobacco use Status Tobacco use date assessed 11/03/24 11/03/24 09:03 Patient Tobacco Use Status Current everyday Tobacco 11/03/24 09:03 Tobacco use type Cigarette 11/03/24 09:03 e-Cigarette/Vaping Use Never Used 11/03/24 09:03 PHQ-9: PHQ-9 Score PHQ-9: Total score 3 11/03/24 09:04 Depression Screening Interpretation: Negative Thrive Assessment: Date of Thrive Assessment Date Thrive assessed 10/27/24 11/03/24 09:03 Coding Level of Care Code Est Pt Level 3 (06588) Diagnoses HTN (hypertension) I10 Dyslipidemia E78.5 Prostate cancer C61 Additional Codes TRAVIS-7 Assessment Billing - TRAVSI-7 Assessment Tool: TRAVIS-7 Assessment 37631 ([id number]) PHQ-9 - 20438 - PHQ-9 Billing: Yes ([id number]) Assessment & Plan Assessment & Plan (1) HTN (hypertension): Code(s): I10 - Essential (primary) hypertension Category: Medical (2) Dyslipidemia: Code(s): E78.5 - Hyperlipidemia, unspecified Category: Medical (3) Prostate cancer: Onset Date: ~2018 Comment: (Invasive adenocarcinoma of prostate - dx 2019 samia 6, bx on 03/25/22 noted samia 7 -now undergoing radiation) Code(s): C61 - Malignant neoplasm of prostate Category: Medical Plan . Orders: Orders Comprehensive [place]. Panel Fast Today E78.5 - Hyperlipidemia, unspecified, I10 - Essential (primary) hypertension Prostate Specific Antigen Scr Today C61 - Malignant neoplasm of prostate Complete Blood Count Auto Diff Today E78.5 - Hyperlipidemia, unspecified, I10 - Essential (primary) hypertension TSH reflex Free T4 Today E78.5 - Hyperlipidemia, unspecified, I10 - Essential (primary) hypertension UA CC w/rflx Micro + Cult Today E78.5 - Hyperlipidemia, unspecified, I10 - Essential (primary) hypertension Lipid Panel Today E78.5 - Hyperlipidemia, unspecified, I10 - Essential (primary) hypertension
[2024-11-03 08:57] VITALS: BP 122/70; PULSE 45; TEMP 36.5; O2SAT 98; BMI 25.8
[2024-11-03 09:26] VITALS: PULSE 62
== END 2024-11-03 10:33 | disposition home or self-care (01) ==
LOC: HO.HMCC 08:51
PROVIDERS: PCP Nurse Practitioner Family; Visit Provider Nurse Practitioner Family
DX: I10 Essential (primary) hypertension (principal); E78.5 Hyperlipidemia, unspecified; C61 Malignant neoplasm of prostate

== ENCOUNTER 2024-11-03 08:50 | Outpatient (REF) | payer MEDICARE, SELFPAY ==
[2024-11-03 11:00] LABS: MANUAL DIFF FLAG NO
[2024-11-03 11:20] LABS: Hematocrit 41.6 % (42.0-52.0); Hemoglobin 14.1 g/dl (14.0-18.0); Imm Gran Abs Auto 0.06 X10*3/uL (0.00-0.03); Imm Gran Pct Auto 0.6 % (0.0-0.4); Lymphocytes Absolute Auto 1.4 X10*3/uL (1.2-4.9); Mean Corpuscular HGB Conc 33.9 g/dl (31.0-36.0); Mean Corpuscular Hemoglobin 33.0 pg (27.0-33.0); Mean Corpuscular Volume 97.4 fL (80.0-98.0); NRBC Abs Auto 0.000 X10*3/uL (0.0-0.012); NRBC Pct Auto 0.0 /100WBC (0.0-0.2); Platelet Count 295 X10*3/uL (160-400); Red Blood Count 4.27 X10*6/uL (4.60-5.80); White Blood Count 10.0 X10*3/uL (4.8-10.8)
[2024-11-03 12:03] LABS: Alanine Aminotransferase 13 U/L (0-40); Albumin Level 4.1 g/dL (3.5-5.0); Alkaline Phosphatase 65 U/L (39-117); Anion Gap 12 (12-20); Aspartate Amino Transferase 24 U/L (5-37); Blood Urea Nitrogen 8 mg/dL (9-16); Calcium 8.9 mg/dL (8.4-10.2); Carbon Dioxide 25 mmol/L (22-29); Chloride 100 mmol/L (96-108); Cholesterol 138 mg/dL (<200); Estimated Glomerular Filt Rate > 60; HDL Cholesterol 57 mg/dL (>40); Potassium 4.6 mmol/L (3.3-5.1); Sodium 132 mmol/L (135-145); Total Protein 6.6 g/dL (6.5-8.0); Triglycerides 60 mg/dL (<150)
[2024-11-03 12:48] LABS: Free T4 (Free Thyroxine) 1.02 ng/dL (0.71-1.85)
[2024-11-03 14:52] LABS: Appearance Urine Clear; Glucose Urine UA Negative (Negative); PH 6.0 (5.0-9.0); Specific Gravity - Urine 1.025 (1.005-1.025); UMIC TRIGGER UACC YES
== END 2024-11-03 08:51 | disposition home or self-care (01) ==
LOC: HO.HMGCLDS 08:50
PROVIDERS: PCP Nurse Practitioner Family; Visit Provider Nurse Practitioner Family
DX: Z12.5 Encounter for screening for malignant neoplasm of prostate (principal); E78.5 Hyperlipidemia, unspecified; I10 Essential (primary) hypertension; C61 Malignant neoplasm of prostate
CPT/HCPCS: 36415; 80053; 80061; 81001; 84153; 84439; 84443; 85025; 96127; 99212

== ENCOUNTER 2024-11-16 06:41 | Outpatient (REF) | payer MEDICARE, SELFPAY ==
[2024-11-16 10:50] LABS: MANUAL DIFF FLAG NO
[2024-11-16 10:56] LABS: Appearance Urine Clear; Glucose Urine UA Negative (Negative); PH 7.5 (5.0-9.0); Specific Gravity - Urine 1.010 (1.005-1.025)
[2024-11-16 10:58] LABS: Hematocrit 41.6 % (42.0-52.0); Hemoglobin 14.0 g/dl (14.0-18.0); Imm Gran Abs Auto 0.06 X10*3/uL (0.00-0.03); Imm Gran Pct Auto 0.7 % (0.0-0.4); Lymphocytes Absolute Auto 1.8 X10*3/uL (1.2-4.9); Mean Corpuscular HGB Conc 33.7 g/dl (31.0-36.0); Mean Corpuscular Hemoglobin 32.8 pg (27.0-33.0); Mean Corpuscular Volume 97.4 fL (80.0-98.0); NRBC Abs Auto 0.000 X10*3/uL (0.0-0.012); NRBC Pct Auto 0.0 /100WBC (0.0-0.2); Platelet Count 314 X10*3/uL (160-400); Red Blood Count 4.27 X10*6/uL (4.60-5.80); White Blood Count 8.1 X10*3/uL (4.8-10.8)
[2024-11-16 11:00] LABS: INTERNATIONAL NORM RATIO 1.0 (0.9-1.1); Prothrombin Time 11.0 SEC (10.9-12.4)
[2024-11-16 13:13] LABS: Alanine Aminotransferase 13 U/L (0-40); Albumin Level 4.2 g/dL (3.5-5.0); Alkaline Phosphatase 65 U/L (39-117); Anion Gap 13 (12-20); Aspartate Amino Transferase 26 U/L (5-37); Blood Urea Nitrogen 10 mg/dL (9-16); Calcium 9.1 mg/dL (8.4-10.2); Carbon Dioxide 24 mmol/L (22-29); Chloride 101 mmol/L (96-108); Cholesterol 144 mg/dL (<200); Estimated Glomerular Filt Rate > 60; Free T4 (Free Thyroxine) 1.03 ng/dL (0.71-1.85); HDL Cholesterol 55 mg/dL (>40); Potassium 4.5 mmol/L (3.3-5.1); Sodium 133 mmol/L (135-145); Total Protein 6.6 g/dL (6.5-8.0); Triglycerides 49 mg/dL (<150)
== END 2024-11-16 06:42 | disposition home or self-care (01) ==
LOC: HO.HMGCLDS 06:41
PROVIDERS: PCP Nurse Practitioner Family; Referring Provider Internal Medicine; Visit Provider Nurse Practitioner Family
DX: I25.10 Atherosclerotic heart disease of native coronary artery without angina pectoris (principal); I10 Essential (primary) hypertension; E78.5 Hyperlipidemia, unspecified; R80.9 Proteinuria, unspecified
CPT/HCPCS: 36415; 80053; 80061; 81003; 84439; 84443; 85025; 85610

== ENCOUNTER 2024-11-23 06:10 | Outpatient (REF) | payer MEDICARE, SELFPAY ==
--- NOTE | ~2024-11-23 | FL_ITS ---
EXAMINATION: FL GUIDANCE ONLY HISTORY: M25.562 - Pain in left knee COMPARISON: None available. TECHNIQUE: Fluoroscopy time: 0.3 minutes. Cumulative Dose: 1.62 mGy. DAP: 0.0216 mGym2 Images: 4. FINDINGS: Fluoroscopic spot films of the knee demonstrate prosthesis in place. Multiple needles are seen in the distal femur and proximal tibia. FL/FL guidance in treatment room IMPRESSION: Fluoroscopy during procedure. Please see procedure report for additional information. Electronically signed by: Beltran Flynn MD 11/23/2024 08:44 AM EDT
== END 2024-11-23 06:11 | disposition home or self-care (01) ==
LOC: CF 06:10
PROVIDERS: Visit Provider Anesthesiology
DX: M25.562 Pain in left knee (principal); I73.9 Peripheral vascular disease, unspecified; M79.661 Pain in right lower leg; M79.662 Pain in left lower leg; M54.50 Low back pain, unspecified; G89.29 Other chronic pain; M96.1 Postlaminectomy syndrome, not elsewhere classified; M48.061 Spinal stenosis, lumbar region without neurogenic claudication; M47.817 Spondylosis without myelopathy or radiculopathy, lumbosacral region; Z96.652 Presence of left artificial knee joint
CPT/HCPCS: 64454; 99212; J2003; J2795; Q9967

== ENCOUNTER 2024-11-23 07:24 | Outpatient (AMB) | payer MEDICARE, SELFPAY ==
[2024-11-23 07:30] VITALS: BP 139/71; PULSE 56; RESP 18; O2SAT 95; BMI 25.8
--- NOTE | 2024-11-23 07:30 | MHC.OFFVIS ---
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 gentleman who is today in my office with intention to receive intra-articular steroid injection into his knee. This is the knee which was replaced by Dr. Aguillon in the past. He reported today that he in the past received steroid injections into the knee before and after total knee replacement. I explained to the patient that injection of the steroids into the artificial knee could result in osteoporosis and loosening of the prosthesis positioned and need for more extended surgery to do a secondary knee replacement. I offered today the patient to proceed with x-ray guided left genicular nerve blocks. Patient agreed with the plan, will change the nature of the procedure today from intra-articular knee steroid injection to genicular nerve block on the left. The patient underwent EMG study that revealed left peroneal neuropathy, which may be contributing to the symptoms experienced in the lower extremities. Patient reports he is undergoing cardiac catheterization on 12/11/24 to rule out blockage per Cardiology. He continues to take daily aspirin 81 mg. Denies any recent cough, cold, infection, fever or any other significant changes in medical history since last office visit. Past Procedures: 09/21/24: Left L4-L5, L5-S1 TFESI-100% ongoing pain relief for back, continues with bilateral leg and left knee pain PRIOR: Patient presents today for follow up to discuss recent lumbar spine MRI results. Patient continues to experience significant low back pain on the right, especially when getting up from sitting position and left leg numbness with heaviness and weakness. He reports after previous left knee replacement, he developed numbness and heaviness in the left leg which has progressed to frequent episodes of numbness and balance issues. The symptoms include extensive numbness from the knee down to the front of foot, further exacerbated by prolonged sitting or any uneven walking surfaces that cause the patient's foot to fall asleep. Initial treatment at other pain clinics involved lumbar spinal injections which initially lasted for extended periods, but more recent injections provide diminished relief. He is hesitant towards additional back surgery but is willing to consider Neurosurgery evaluation at [facility] for minimally invasive decompression. Patient ambulates with slow antalgic gait in semi-flexed forward position without assistive devices. He notes that he has a lot work at home and cane or walker would be in his way. Denies any fever or chills, abdominal or groin pain, bladder or bowel dysfunction or saddle anesthesia. Reports left lower extremity weakness due to heaviness and numbness. - Onset and Timing: Chronic pain with significant symptoms after knee replacement. - Quality and Character: Numbness and sensation of the foot falling asleep. - Primary Location: Lower back and left leg, from knee to foot. - Exacerbating Factors: Sitting and walking. - Relieving Factors: Previously managed with injections. - Interfered Activities: Causes loss of balance, difficulty performing daily tasks. - Affect: Pain leads to physical instability and requires careful navigation when walking. - Analgesia: Injections provided previous relief but are now less efficacious - Adverse Effects: Recent injections less effective in managing symptoms. - Activities of Daily Living: Difficulty with balance and walking; requires careful navigation and support. - Aberrant Drug-Related Behaviors: No behaviors indicating medication misuse were mentioned. PRIOR: Patient is a pleasant 78 years old male with history of lumbar microdiscectomy x2 and left TKA, chronic low back pain, advanced lumbar disc degenerative disease and spondylosis, left shoulder arthritis (multiple cortisone shoulder injections), prostate cancer and current tobacco smoker, presents today for initial evaluation of acute on chronic low back pain with radiculopathy and left knee pain. Denies any recent trauma, injury or falls. Patient reports back pain has been present since late teenager years. Currently, his back pain is axial and also radiates into left knee and anterior and lateral taylor with associated stabbing, aching, pins and needles and burning sensations in his lower leg and foot. His walking capacity is limited to 10 min, standing 20-30 min with can or holding on to something. Reports most severe back pain with bending down and flexing forward. Reports anterior left knee pain without swelling, burning, or erythema. He is able to sit up to 30 min on soft surfaces. Patient states he often looses balance when getting up from sitting to standing due to increase in left leg and back pain. He cannot functional normally and wakes up frequently at night due to pain. He completed physical therapy in the past but cannot pursue PT at this time due to significant low back pain. Pain is rated 8-10/10. Patient has tried OTC medications and topicals but prefers to avoid medications. Denies any fever or chills, abdominal or groin pain, foot drop, bladder or bowel dysfunction or saddle anesthesia. He reports frequent episodes of dizziness with h/o first degree AV block and currently on atenolol which was recently decreased per Cardiology. Patient previously underwent multiple interventional treatments for back and knee pain at [facility] and [facility], as well as multiple cortisone knee injections by Dr. Aguillon at [facility]. Past Procedures at [facility]: 05/31/2014: Right L4-L5 Interlaminar ONI with immediate and complete pain relief 04/07/2018: Bilateral L4-L5 and L5-S1 facet injections 05/11/2018: Lumbar medial branch blocks 06/29/2019: Lumbar medial branch blocks [facility]: 11/30/2021: Lumbar ONI 12/11/2021: Right knee Euflexxa injection (1st injection) 12/21/2021: Right knee Euflexxa injection (2nd injection) 12/27/2021: Right knee Euflexxa injection (3rd injection) 03/15/2022: Knee injection 05/10/2022: Lumbar medial branch RFA 05/29/2022: Left knee cortisone injection Oswestry Low Back Disability Score=26 (severe disability) Location: Lower back radiates down LLE, left knee pain Duration: Chronic pain for many years, worsening for past 3 months Characteristics of symptom or complaint: Aching, shooting, burning, stabbing, shooting, numbness, tingling, sore Aggravating or associated factors: Walking, climbing stairs, bending, lifting, sitting to standing, movements Relieving factors: Back brace, Tylenol, heat/ice therapy, activity modifications Treatment: PT, knee and back injections, lumbar RFA, back surgery x2, left TKA [facility] Medical History Smoker Tubular adenoma of colon (~2010) Nicotine dependence, cigarettes, uncomplicated Dyslipidemia HTN (hypertension) AV bloc first degree Allergic rhinitis COPD (chronic obstructive pulmonary disease) Primary osteoarthritis of left knee Prostate cancer (~2018) Surgical History History of total left knee replacement (~2019) History of colonoscopy (~2010) History of prostate biopsy (~2018) History of partial colectomy (~2016) Status post lumbar microdiscectomy (~2002) Family History Mother Alzheimer disease Social History Housing: House Alcohol intake: current Alcohol intake frequency: 0-2 drinks per day Patient Tobacco Use Status: Current everyday Tobacco user Tobacco use type: Cigarette Cigarettes Per Day: 4 Years Smoked: 60 +/- e-Cigarette/Vaping Use: Never Used Second Hand Smoke Exposure: No service: No Current occupational status: retired Current occupation: Right Handed Cognitive needs: No Hearing needs: No Vision needs: No Review of Systems Const All systems reviewed & are unremarkable except as noted in HPI and below Physical Exam Vital Signs: Last Vital Signs Pulse 54 11/23/24 08:47 Resp 18 11/23/24 08:47 BP 111/66 11/23/24 08:47 Pulse Ox 98 11/23/24 08:47 Oxygen Delivery Method Room Air 11/23/24 08:47 BMI result Body Mass Index 25.8 General: Appears afebrile. Alert and oriented. Mood and affect appropriate. Follows and participates in conversation appropriately. Respiratory effort is unlabored. No cough. Able to transition from sit to stand unassisted. Ambulates with normal heel strike and toe off on the right, increased left knee pain with walking/climbing. General: Yes no CVA tenderness Back/Spine/Pelvis Back: no CVA tenderness Cervical Spine: cervical ROM normal and No Cervical spine tenderness Thoracic/Lumbar Spine: thoracic and lumbar spine normal to inspection, Thoracic/lumbar spine scar(s), Lasegue's sign positive on the left and diffuse, pain with thoraco-lumbar ROM (mild), paraspinal muscle tenderness, thoraco-lumbar ROM limited, Thoracic/lumbar scoliosis, No thoracic spinal tenderness and No lumbar spinal tenderness Sacroiliac joints: bilaterally nontender Extrem General: Yes capillary refill normal, Yes no clubbing, cyanosis or edema and Yes calf tenderness (with walking and at night) Left lower extremity: knee (Well healed scar. Mildly limited ROM. ) Details: normal to inspection, tenderness (anterior knee +allodynia) Location: of the patella, of the medial joint line and of the lateral joint line and crepitus; no swelling, no ecchymosis, no deformity and no unusual warmth Results Reviewed Results Reviewed: XR LUMBOSACRAL SPINE 05/04/24 CLINICAL INFORMATION: M54.50 - Low back pain, unspecified COMPARISON: 07/09/2018. TECHNIQUE: Three views of the lumbosacral spine. FINDINGS: There is a minimal left convex scoliosis, apex at L4. There is a normal lumbar lordosis. No fracture, compression deformity, traumatic subluxation, or suspicious bone lesion. There is a 2 mm degenerative retrolisthesis of L2 on L3, and L3 on L4. Moderate to severe disc degeneration spanning L3-S1. Associated facet degeneration at these levels. Soft tissues demonstrate diffuse vascular calcifications. There are fiducial markers in the inferior pelvis. IMPRESSION: 1. No acute findings lumbar spine. 2. Moderate spondylosis, most significant spanning L3-S1. XR KNEE, LEFT 03/29/21 CLINICAL INFORMATION: Left knee pain COMPARISON: September 08, 2020 FINDINGS: Patient is status post left total knee arthroplasty. Prosthetic components appear in good position. No acute fracture or dislocation is evident. No significant effusion is seen. No evidence of prosthetic loosening. IMPRESSION: Status post left total knee arthroplasty without significant abnormality appreciated. MR LUMBAR SPINE wo con 05/23/24 MR of the lumbar spine without contrast Comparison: CR/SR - XR LUMBAR SPINE 2-3V - 05/04/24 10:05 EST CR - LUMBAR SPINE 2TO 3 [id number] - 07/09/18 16:26 EDT MR - [place]BAR [place] [id number] - 04/05/14 14:37 EST Findings: 2 mm retrolisthesis of L2 on L3, degenerative. 3 mm retrolisthesis of L4 on L5, degenerative. There is a mild amount Modic type 1 change at L3/L4 and L5/S1 at the left aspect, also present on the prior study. Small cystic change and L4. Bone marrow signal is otherwise normal. No cord expansion or abnormal signal intensity. The conus medullaris terminates at L1, which is normal. The cauda equina is unremarkable. L1/L2: No disc herniation. Mild facet joint and ligamentum flavum hypertrophy. No central canal stenosis. No lateral recess stenosis. No foraminal stenosis. L2/L3: 5 mm disc bulge most prominent in the left subarticular zone. Moderate facet joint and ligamentum flavum hypertrophy. Fluid in the facet joints. Mild central canal stenosis. Mild right and severe left lateral recess stenosis. No right and mild left foraminal stenosis. L3/L4: 5 mm broad-based disc bulge with an annular fissure. Moderate facet joint and ligamentum flavum hypertrophy. Fluid in the left facet joint. [id number] central canal stenosis. Severe bilateral lateral recess stenosis. Moderate right [id number] left foraminal stenosis, similar to the prior study. L4/L5: 6 mm broad-based disc bulge with an annular fissure. Severe facet joint and ligamentum flavum hypertrophy. Moderate central canal stenosis. Severe bilateral lateral recess stenosis, greater on the left. Severe right and moderate left foraminal stenosis, similar to the prior study. L5/S1: Disc desiccation with a disc/osteophyte measuring 5 mm. Severe facet joint hypertrophy. Mild ligamentum flavum hypertrophy. Trace amount of fluid in the right facet joint. Mild central canal stenosis. Moderate to severe bilateral lateral recess stenosis. Mild right moderate to severe left foraminal stenosis, greater than on the prior study. Impression: Multilevel degenerative change, detailed above. Assessment & Plan Assessment & Plan (1) Claudication of both lower extremities: Code(s): I73.9 - Peripheral vascular disease, unspecified Category: Medical (2) Bilateral calf pain: Code(s): M79.661 - Pain in right lower leg; M79.662 - Pain in left lower leg Category: Medical (3) Lower back pain: Comment: chronic Code(s): M54.50 - Low back pain, unspecified Category: Medical (4) Left knee pain: Code(s): M25.562 - Pain in left knee Category: Medical (5) Lumbar post-laminectomy syndrome: Code(s): M96.1 - Postlaminectomy syndrome, not elsewhere classified Category: Medical (6) Lumbar spinal stenosis: Code(s): M48.061 - Spinal stenosis, lumbar region without neurogenic claudication Category: Medical (7) Lumbosacral spondylosis: Code(s): M47.817 - Spondylosis without myelopathy or radiculopathy, lumbosacral region Category: Medical (8) History of total left knee replacement: Onset Date: ~2019 Comment: (Lt TKR - Dr. Aguillon, [facility] - 10/04/2019) Code(s): Z96.652 - Presence of left artificial knee joint Category: Surgical Plan: Intra-articular steroid injection into the prosthetic knee risks were explained to the patient. The patient agreed to go for genicular nerve block see as below. Plan Genicular nerve block left. Patient was explained informed consent including risks of bleeding infection for the procedure. He was brought to the operating room and positioned supine on the operating table. The left lower extremity was brought on the elevation with gel roll. The anterior medial and lateral surfaces of the left knee were prepped with ChloraPrep. C-arm was brought over the operating field and sq picture of the prosthetic knee was demonstrated on the screen. The point of interest were delineated as: [place] of lateral and medial silhouette of the metaphysis of the left femur with corresponding epiphysis of the same bone as well as confluence of the medial silhouette of the metaphysis of the tibia on the left with the epiphysis of the same bone. The projection of the points of interest to the skin were injected with small amount of lidocaine 2% forming the skin wheals. After that three 22 gauge 2-1/2 inch needles were driven to the points of interest on intermittent anterior posterior and lateral views. Care was taken to superimpose bilateral condyles of the knee while the needles were driven to the points of interest. When tip of the needle gently contacted the bone on AP view and on lateral view they were positioned in the mid shaft of the femur as well as mid shaft of the tibia injection of the treatment solution of ropivacaine 0.5% into each needle was performed, upon completion of the injection the needles were removed and sterile Band-Aids were applied. The patient tolerated the procedure fairly well. He was given a pain diary and e explain to perform most painful maneuvers which usually aggravate his pain in the knee. Orders: Orders FL guidance in treatment room Today M25.562 - Pain in left knee Coding Level of Care Code Est Pt Level 3 (77672) Procedure Only Diagnoses Claudication of both lower extremities I73.9 Bilateral calf pain M79.661; M79.662 Lower back pain M54.50 Left knee pain M25.562 Lumbar post-laminectomy syndrome M96.1 Lumbar spinal stenosis M48.061 Lumbosacral spondylosis M47.817 History of total left knee replacement Z96.652
[2024-11-23 08:47] VITALS: BP 111/66; PULSE 54; RESP 18; O2SAT 98
== END 2024-11-23 08:48 | disposition home or self-care (01) ==
PROVIDERS: PCP Nurse Practitioner Family; Visit Provider Anesthesiology
DX: M79.661 Pain in right lower leg (principal); M79.662 Pain in left lower leg; M54.50 Low back pain, unspecified; M96.1 Postlaminectomy syndrome, not elsewhere classified; M25.562 Pain in left knee; M48.061 Spinal stenosis, lumbar region without neurogenic claudication; I73.9 Peripheral vascular disease, unspecified; M47.817 Spondylosis without myelopathy or radiculopathy, lumbosacral region; Z96.652 Presence of left artificial knee joint
CPT/HCPCS: 64454; 99213

== ENCOUNTER 2024-11-26 10:21 | Outpatient (REF) | payer MEDICARE, SELFPAY ==
--- NOTE | ~2024-11-26 | XR_ITS ---
EXAMINATION: XR FOOT, LEFT CLINICAL INFORMATION: M79.672 - Pain in left foot COMPARISON: None available. TECHNIQUE: AP, lateral, and oblique views of the left foot. FINDINGS: Mild degenerative changes are present in the IP joint of the great toe with marginal osteophytes and mild narrowing. Minute marginal osteophyte is present in the medial first metatarsal head. There is a small plantar calcaneal spur. XR/XR foot LT min 3V IMPRESSION: Mild degenerative changes Electronically signed by: Vick Wiley MD 11/26/2024 11:42 AM EDT
== END 2024-11-26 10:22 | disposition home or self-care (01) ==
LOC: HO.XRAY 10:21
PROVIDERS: PCP Nurse Practitioner Family; Visit Provider Nurse Practitioner Family
DX: M79.672 Pain in left foot (principal); M25.562 Pain in left knee; M48.061 Spinal stenosis, lumbar region without neurogenic claudication; M96.1 Postlaminectomy syndrome, not elsewhere classified
CPT/HCPCS: 73630; 99212

== ENCOUNTER 2024-11-26 10:21 | Outpatient (AMB) | payer MEDICARE, SELFPAY ==
--- NOTE | 2024-11-26 10:26 | MHC.OFFVIS ---
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 The pain began after a knee replacement surgery, during which a cortisone injection was administered two months post-surgery, which was later deemed inappropriate due to the risk of osteoporosis and loosening of the prosthesis. More recently, he underwent left diagnostic genicular nerve block that provided him minimal pain relief during 6 hour period post injection, with pain at baseline levels. The patient reports that the pain persists, particularly when engaging in activities such as walking or climbing stairs, although it decreases with rest. The patient also experiences left foot pain, which he describes as being associated with the knee pain. He has been using a compression brace on his foot that allows him to walk without a cane, improving his balance, although the pain remains. The foot pain is suspected to be related to the way he steps, potentially causing left knee pain. He also has chronic low back pain with left sided radicular symptoms with known spinal stenosis and had good relief with recent therapeutic ONI for back pain but continues with left knee pain. Past Procedures: 11/23/24: Left diagnostic GNB injection-30% pain relief with activities 09/21/24: Left L4-L5, L5-S1 TFESI-100% ongoing pain relief for back, continues with bilateral leg and left knee pain PRIOR Dr. Chang 11/23/24: [place] is very pleasant 79 y.o. gentleman who is today in my office with intention to receive intra-articular steroid injection into his knee. This is the knee which was replaced by Dr. Aguillon in the past. He reported today that he in the past received steroid injections into the knee before and after total knee replacement. I explained to the patient that injection of the steroids into the artificial knee could result in osteoporosis and loosening of the prosthesis positioned and need for more extended surgery to do a secondary knee replacement. I offered today the patient to proceed with x-ray guided left genicular nerve blocks. Patient agreed with the plan, will change the nature of the procedure today from intra-articular knee steroid injection to genicular nerve block on the left. The patient underwent EMG study that revealed left peroneal neuropathy, which may be contributing to the symptoms experienced in the lower extremities. Patient reports he is undergoing cardiac catheterization on 12/11/24 to rule out blockage per Cardiology. He continues to take daily aspirin 81 mg. Denies any recent cough, cold, infection, fever or any other significant changes in medical history since last office visit. Past Procedures: 09/21/24: Left L4-L5, L5-S1 TFESI-100% ongoing pain relief for back, continues with bilateral leg and left knee pain PRIOR: Patient presents today for follow up to discuss recent lumbar spine MRI results. Patient continues to experience significant low back pain on the right, especially when getting up from sitting position and left leg numbness with heaviness and weakness. He reports after previous left knee replacement, he developed numbness and heaviness in the left leg which has progressed to frequent episodes of numbness and balance issues. The symptoms include extensive numbness from the knee down to the front of foot, further exacerbated by prolonged sitting or any uneven walking surfaces that cause the patient's foot to fall asleep. Initial treatment at other pain clinics involved lumbar spinal injections which initially lasted for extended periods, but more recent injections provide diminished relief. He is hesitant towards additional back surgery but is willing to consider Neurosurgery evaluation at [facility] for minimally invasive decompression. Patient ambulates with slow antalgic gait in semi-flexed forward position without assistive devices. He notes that he has a lot work at home and cane or walker would be in his way. Denies any fever or chills, abdominal or groin pain, bladder or bowel dysfunction or saddle anesthesia. Reports left lower extremity weakness due to heaviness and numbness. - Onset and Timing: Chronic pain with significant symptoms after knee replacement. - Quality and Character: Numbness and sensation of the foot falling asleep. - Primary Location: Lower back and left leg, from knee to foot. - Exacerbating Factors: Sitting and walking. - Relieving Factors: Previously managed with injections. - Interfered Activities: Causes loss of balance, difficulty performing daily tasks. - Affect: Pain leads to physical instability and requires careful navigation when walking. - Analgesia: Injections provided previous relief but are now less efficacious - Adverse Effects: Recent injections less effective in managing symptoms. - Activities of Daily Living: Difficulty with balance and walking; requires careful navigation and support. - Aberrant Drug-Related Behaviors: No behaviors indicating medication misuse were mentioned. PRIOR: Patient is a pleasant 78 years old male with history of lumbar microdiscectomy x2 and left TKA, chronic low back pain, advanced lumbar disc degenerative disease and spondylosis, left shoulder arthritis (multiple cortisone shoulder injections), prostate cancer and current tobacco smoker, presents today for initial evaluation of acute on chronic low back pain with radiculopathy and left knee pain. Denies any recent trauma, injury or falls. Patient reports back pain has been present since late teenager years. Currently, his back pain is axial and also radiates into left knee and anterior and lateral taylor with associated stabbing, aching, pins and needles and burning sensations in his lower leg and foot. His walking capacity is limited to 10 min, standing 20-30 min with can or holding on to something. Reports most severe back pain with bending down and flexing forward. Reports anterior left knee pain without swelling, burning, or erythema. He is able to sit up to 30 min on soft surfaces. Patient states he often looses balance when getting up from sitting to standing due to increase in left leg and back pain. He cannot functional normally and wakes up frequently at night due to pain. He completed physical therapy in the past but cannot pursue PT at this time due to significant low back pain. Pain is rated 8-10/10. Patient has tried OTC medications and topicals but prefers to avoid medications. Denies any fever or chills, abdominal or groin pain, foot drop, bladder or bowel dysfunction or saddle anesthesia. He reports frequent episodes of dizziness with h/o first degree AV block and currently on atenolol which was recently decreased per Cardiology. Patient previously underwent multiple interventional treatments for back and knee pain at [facility] and [facility], as well as multiple cortisone knee injections by Dr. Aguillon at [facility]. Past Procedures at [facility]: 05/31/2014: Right L4-L5 Interlaminar ONI with immediate and complete pain relief 04/07/2018: Bilateral L4-L5 and L5-S1 facet injections 05/11/2018: Lumbar medial branch blocks 06/29/2019: Lumbar medial branch blocks [facility]: 11/30/2021: Lumbar ONI 12/11/2021: Right knee Euflexxa injection (1st injection) 12/21/2021: Right knee Euflexxa injection (2nd injection) 12/27/2021: Right knee Euflexxa injection (3rd injection) 03/15/2022: Knee injection 05/10/2022: Lumbar medial branch RFA 05/29/2022: Left knee cortisone injection Oswestry Low Back Disability Score=26 (severe disability) Location: Lower back radiates down LLE, left knee pain Duration: Chronic pain for many years, worsening for past 3 months Characteristics of symptom or complaint: Aching, shooting, burning, stabbing, shooting, numbness, tingling, sore Aggravating or associated factors: Walking, climbing stairs, bending, lifting, sitting to standing, movements Relieving factors: Back brace, Tylenol, heat/ice therapy, activity modifications Treatment: PT, knee and back injections, lumbar RFA, back surgery x2, left TKA PFSH Medical History Smoker Tubular adenoma of colon (~2010) Nicotine dependence, cigarettes, uncomplicated Dyslipidemia HTN (hypertension) AV bloc first degree Allergic rhinitis COPD (chronic obstructive pulmonary disease) Primary osteoarthritis of left knee Prostate cancer (~2018) Surgical History History of total left knee replacement (~2019) History of colonoscopy (~2010) History of prostate biopsy (~2018) History of partial colectomy (~2016) Status post lumbar microdiscectomy (~2002) Family History Mother Alzheimer disease Social History Housing: House Alcohol intake: current Alcohol intake frequency: 0-2 drinks per day Patient Tobacco Use Status: Current everyday Tobacco user Tobacco use type: Cigarette Cigarettes Per Day: 4 Years Smoked: 60 +/- e-Cigarette/Vaping Use: Never Used Second Hand Smoke Exposure: No service: No Current occupational status: retired Current occupation: Right Handed Cognitive needs: No Hearing needs: No Vision needs: No Review of Systems Const Details: - Musculoskeletal: Reports left knee pain and associated foot pain. - Neurological: Denies balance issues when using foot device. All systems reviewed & are unremarkable except as noted in HPI and below Physical Exam General: Appears afebrile. Alert and oriented. Mood and affect appropriate. Follows and participates in conversation appropriately. Respiratory effort is unlabored. No cough. Able to transition from sit to stand unassisted. Ambulates with normal heel strike and toe off on the right, increased left knee pain with walking/climbing. General: Yes no CVA tenderness Back/Spine/Pelvis Back: no CVA tenderness Cervical Spine: cervical ROM normal and No Cervical spine tenderness Thoracic/Lumbar Spine: thoracic and lumbar spine normal to inspection, Thoracic/lumbar spine scar(s), Lasegue's sign positive on the left and diffuse, pain with thoraco-lumbar ROM (mild), paraspinal muscle tenderness, thoraco-lumbar ROM limited, Thoracic/lumbar scoliosis, No thoracic spinal tenderness and No lumbar spinal tenderness Sacroiliac joints: bilaterally nontender Extrem General: Yes capillary refill normal, Yes no clubbing, cyanosis or edema and Yes calf tenderness (with walking and at night) Left lower extremity: knee (Well healed scar. Mildly limited ROM. ) Details: normal to inspection, tenderness (anterior knee +allodynia) Location: of the patella, of the medial joint line and of the lateral joint line and crepitus; no swelling, no ecchymosis, no deformity and no unusual warmth Results Reviewed Results Reviewed: XR LUMBOSACRAL SPINE 05/04/24 CLINICAL INFORMATION: M54.50 - Low back pain, unspecified COMPARISON: 07/09/2018. TECHNIQUE: Three views of the lumbosacral spine. FINDINGS: There is a minimal left convex scoliosis, apex at L4. There is a normal lumbar lordosis. No fracture, compression deformity, traumatic subluxation, or suspicious bone lesion. There is a 2 mm degenerative retrolisthesis of L2 on L3, and L3 on L4. Moderate to severe disc degeneration spanning L3-S1. Associated facet degeneration at these levels. Soft tissues demonstrate diffuse vascular calcifications. There are fiducial markers in the inferior pelvis. IMPRESSION: 1. No acute findings lumbar spine. 2. Moderate spondylosis, most significant spanning L3-S1. XR KNEE, LEFT 03/29/21 CLINICAL INFORMATION: Left knee pain COMPARISON: September 08, 2020 FINDINGS: Patient is status post left total knee arthroplasty. Prosthetic components appear in good position. No acute fracture or dislocation is evident. No significant effusion is seen. No evidence of prosthetic loosening. IMPRESSION: Status post left total knee arthroplasty without significant abnormality appreciated. MR LUMBAR SPINE wo con 05/23/24 MR of the lumbar spine without contrast Comparison: CR/SR - XR LUMBAR SPINE 2-3V - 05/04/24 10:05 EST CR - LUMBAR SPINE 2TO 3 [id number] - 07/09/18 16:26 EDT MR - [place] [id number] - 04/05/14 14:37 EST Findings: 2 mm retrolisthesis of L2 on L3, degenerative. 3 mm retrolisthesis of L4 on L5, degenerative. There is a mild amount Modic type 1 change at L3/L4 and L5/S1 at the left aspect, also present on the prior study. Small cystic change and L4. Bone marrow signal is otherwise normal. No cord expansion or abnormal signal intensity. The conus medullaris terminates at L1, which is normal. The cauda equina is unremarkable. L1/L2: No disc herniation. Mild facet joint and ligamentum flavum hypertrophy. No central canal stenosis. No lateral recess stenosis. No foraminal stenosis. L2/L3: 5 mm disc bulge most prominent in the left subarticular zone. Moderate facet joint and ligamentum flavum hypertrophy. Fluid in the facet joints. Mild central canal stenosis. Mild right and severe left lateral recess stenosis. No right and mild left foraminal stenosis. L3/L4: 5 mm broad-based disc bulge with an annular fissure. Moderate facet joint and ligamentum flavum hypertrophy. Fluid in the left facet joint. Tbiq-[id number] central canal stenosis. Severe bilateral lateral recess stenosis. Moderate right [id number] left foraminal stenosis, similar to the prior study. L4/L5: 6 mm broad-based disc bulge with an annular fissure. Severe facet joint and ligamentum flavum hypertrophy. Moderate central canal stenosis. Severe bilateral lateral recess stenosis, greater on the left. Severe right and moderate left foraminal stenosis, similar to the prior study. L5/S1: Disc desiccation with a disc/osteophyte measuring 5 mm. Severe facet joint hypertrophy. Mild ligamentum flavum hypertrophy. Trace amount of fluid in the right facet joint. Mild central canal stenosis. Moderate to severe bilateral lateral recess stenosis. Mild right moderate to severe left foraminal stenosis, greater than on the prior study. Impression: Multilevel degenerative change, detailed above. Assessment & Plan Assessment & Plan (1) Left foot pain: Code(s): M79.672 - Pain in left foot Category: Medical (2) Left knee pain: Code(s): M25.562 - Pain in left knee Category: Medical (3) Lower back pain: Comment: chronic Code(s): M54.50 - Low back pain, unspecified Category: Medical (4) Lumbar spinal stenosis: Code(s): M48.061 - Spinal stenosis, lumbar region without neurogenic claudication Category: Medical (5) Lumbar post-laminectomy syndrome: Code(s): M96.1 - Postlaminectomy syndrome, not elsewhere classified Category: Medical Plan The plan includes obtaining a foot x-ray to further evaluate for any degenerative changes or abnormalities that may be contributing to the patient's ongoing left leg and knee pain. If the x-ray is normal, a diagnostic left saphenous nerve block will be considered to further assess the source of pain. Expectations, risks and benefits were reviewed. The patient will be contacted with the results of the x-ray, and further management will be planned based on these findings. All questions and concerns have been answered and patient agreed with the treatment plan. Follow up as needed. Patient was informed and verbally consented to the use of an ambient scribe for clinic note documentation during this visit. Orders: Orders XR foot LT min 3V Today M79.672 - Pain in left foot Coding Level of Care Code Est Pt Level 4 (25501) Complex EM visit Add On G2211 Diagnoses Left foot pain M79.672 Left knee pain M25.562 Lower back pain M54.50 Lumbar spinal stenosis M48.061 Lumbar post-laminectomy syndrome M96.1
[2024-11-26 10:31] VITALS: BP 166/82; PULSE 61; O2SAT 97; BMI 26.8
== END 2024-11-26 10:58 | disposition home or self-care (01) ==
LOC: HO.PMC 10:22
PROVIDERS: PCP Nurse Practitioner Family; Visit Provider Nurse Practitioner Family
DX: M79.672 Pain in left foot (principal); M25.562 Pain in left knee; M54.50 Low back pain, unspecified; M48.061 Spinal stenosis, lumbar region without neurogenic claudication; M96.1 Postlaminectomy syndrome, not elsewhere classified
CPT/HCPCS: 99214; G2211

== ENCOUNTER → 2024-11-26 10:55 | Outpatient (BNV) | payer MEDICARE, SELFPAY | PROVIDERS: PCP Nurse Practitioner Family; Visit Provider Radiology Diagnostic Radiology | DX: M79.672 Pain in left foot (principal) | CPT/HCPCS: 73630 ==

== ENCOUNTER → 2024-12-14 23:59 | Outpatient (BNV) | payer MEDICARE, SELFPAY | PROVIDERS: PCP Nurse Practitioner Family; Visit Provider Internal Medicine Cardiovascular Disease | DX: I25.118 Atherosclerotic heart disease of native coronary artery with other forms of angina pectoris (principal) | CPT/HCPCS: 93458; 93571; 99152 ==

== ENCOUNTER 2024-12-21 11:12 | Outpatient (AMB) | payer MEDICARE, SELFPAY ==
[2024-12-21 11:17] VITALS: BP 122/78; PULSE 76; O2SAT 94; BMI 26.0
--- NOTE | 2024-12-21 11:17 | A.OFFVIS_ITS ---
Vital Signs 12/21/24 11:17 Height 5 ft 8 in Weight 170 lb 13.732 oz BMI 26.0 BP 122/78 Blood Pressure Location Lt brachial Position Sitting Pulse 76 Pulse Source Pulse Oximeter Pulse Oximetry (%) 94 Oxygen Delivery Method Room Air Intake Visit Reasons: copd Intake Note: pt is here for yearly follow up, breathing is heavy at times with yard work, sits and it comes back. 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 SINCE 2019 HE COMES TO SEE ME ABOUT ONCE A YEAR IN RELATION TO HIS PROBLEM WITH THE BREATHING AND ALSO NASAL CONGESTION. HE HAS BEEN TREATED FOR ALLERGIC/VASOMOTOR RHINITIS WELL MILD OBSTRUCTIVE AIRWAY DISORDER. HIS MAIN COMPLAINT IS BOUTS OF COUGH ESPECIALLY WHEN HE FEELS CONGESTED, AND THIS IS RELATED TO POSTNASAL DISCHARGE. HE HAS CHRONIC RHINITIS POSTNASAL DISCHARGE WHICH GETS WORSE AT THE TIME OF SEASONAL CHANGES, OR IF HE HAS ANY INFECTION. AND THEN IT SEEMED WAS DOWN A LOW-GRADE CHRONIC ALLERGY. HE IS ON MONTELUKAST 10 MG DAILY WHICH KEEPS HIS ALLERGY PROBLEM AT A LOW-LEVEL, HE IS ALSO SUPPOSED TO USE FLONASE NASAL SPRAY BUT HE HAS NOT BEEN DOING IT FOR A WHILE AND HE GETS COUGH WHEN HE HAS OVERLOAD OF POSTNASAL DISCHARGE, ALSO GETS SHORT OF BREATH IF HE WALKS MORE THAN A FEW BLOCKS OR CLIMBS STAIRS. HE IS PHYSICAL DISABILITY HAS BEEN MAINLY DUE TO ONGOING CHRONIC BACK PAIN. [facility] Medical History Smoker Tubular adenoma of colon (~2010) Nicotine dependence, cigarettes, uncomplicated Dyslipidemia HTN (hypertension) AV bloc first degree Allergic rhinitis COPD (chronic obstructive pulmonary disease) Primary osteoarthritis of left knee Prostate cancer (~2018) Surgical History History of total left knee replacement (~2019) History of colonoscopy (~2010) History of prostate biopsy (~2018) History of partial colectomy (~2016) Status post lumbar microdiscectomy (~2002) Family History Mother Alzheimer disease Social History Housing: House Alcohol intake: current Alcohol intake frequency: 0-2 drinks per day Patient Tobacco Use Status: Current everyday Tobacco user Tobacco use type: Cigarette Cigarettes Per Day: 3 Years Smoked: 60 +/- e-Cigarette/Vaping Use: Never Used Second Hand Smoke Exposure: No service: No Current occupational status: retired Current occupation: Right Handed Cognitive needs: No Hearing needs: No Vision needs: No Review of Systems Const All systems reviewed & are unremarkable except as noted in HPI and below Eyes Reports no additional complaints ENT Reports nasal congestion (OFF AND ON ) and Reports nasal discharge (only intermittent ) Card Denies chest pain, Denies irregular heart rhythm and Denies leg edema Resp Reports as per HPI GI Reports no additional complaints Reports no additional complaints Musc Reports back pain, Reports arthralgias (Left knee pain and stiffness) and Reports numbness (Left leg below-knee) Skin/Breast Reports system reviewed and no additional complaints, except as documented Neuro Reports numbness (Left leg below-knee) Psych Reports no additional complaints Physical Exam Vital Signs: Last Vital Signs Pulse 76 12/21/24 11:17 BP 122/78 12/21/24 11:17 Pulse Ox 94 12/21/24 11:17 Oxygen Delivery Method Room Air 12/21/24 11:17 BMI result Body Mass Index 26.0 Const General: comfortable (But slow walking), no acute distress, alert and awake Orientation/consciousness: patient oriented x3 HEENT Head: Yes normal to inspection General nose exam: No nasal polyps present and No nasal discharge present Face and sinus: Yes sinuses nontender and Yes other (Has bilateral nasal congestion) Mouth: oropharynx normal Throat: Yes posterior oropharynx normal Eyes General: appearance normal, both eyes and all related structures Neck Neck: Yes normal visual inspection, Yes no lymphadenopathy, Yes trachea midline and Yes no JVD Thyroid: Thyroid normal Chest Chest palpation & inspection: normal inspection of the chest, normal palpation of entire chest wall and no tenderness Resp Other: PERCUSSION NOTE IS RESONANT. BREATH SOUNDS ARE DISTANT BUT EQUAL ON BOTH SIDES. NO AUDIBLE WHEEZES CREPITATIONS OR RHONCHI. Cardio Palpation: normal PMI Rate: regular rate Rhythm: regular rhythm Heart sounds: no gallops and no murmurs GI Palpation (GI): Soft to palpation, nontender, No hepatosplenomegaly present and no masses Auscultation: normal bowel sounds Back/Spine/Pelvis Thoracic/Lumbar Spine: thoracic and lumbar spine normal to inspection, thoraco- lumbar ROM limited and thoraco-lumbar spasm Skin General skin exam: no rashes or lesions noted Neuro General: patient oriented x3, No gait normal (Slow due to back pain and stiffness) and no focal motor deficits Cranial nerves: Yes CN's II-XII intact bilaterally Extrem General: Yes normal to inspection, Yes no clubbing, cyanosis or edema and Yes no calf tenderness Psych Speech and movement: Normal speech and movement present Assessment & Plan Assessment & Plan (1) COPD (chronic obstructive pulmonary disease): Comment: (Mild to Moderate COPD ) - somewhat increased symptoms of shortness of breath on minimal to moderate exertion. Advised to use Ventolin ,two puffs Q four to six hours only p.r.n.. Eliminate the cigarettes Code(s): J44.9 - Chronic obstructive pulmonary disease, unspecified Category: Medical Plan: Advised to use albuterol HFA/ Ventolin 2 puffs Q 6 hours only p.r.n. if there is a persistent cough or wheezing. 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 Code(s): F17.210 - Nicotine dependence, cigarettes, uncomplicated Category: Medical Plan: Again talked to him about quitting smoking completely but this is probably not going to happen. (3) Allergic rhinitis: Comment: CHRONIC, PERRENIAL , RELATIVELY CONTROLLED AT PRESENT . HE STILL HAS POSTNASAL DISCHARGE WHICH CAUSES COUGH ESPECIALLY IN THE MORNING HOURS. Code(s): J30.9 - Allergic rhinitis, unspecified Category: Medical Plan: CONTINUE TO USE MONTELUKAST 10 MG DAILY. ALSO USE FLONASE 2 SPRAY EACH NOSTRIL DAILY ESPECIALLY IN THE EVENINGS. Medications: New albuterol sulfate 90 mcg/actuation (Ventolin HFA) 2 puffs inhalation Q4-6H PRN 8.5 grams 3RF shortness of breath or wheezing 90 days Changed From montelukast 10 mg PO DAILY 90 tabs 0RF J30.9 - Allergic rhinitis, unspecified To montelukast 10 mg PO DAILY 90 tabs 3RF allergic Rhinitis 3 months J30.9 - Allergic rhinitis, unspecified Coding Level of Care Code Est Pt Level 3 (40039) Diagnoses COPD (chronic obstructive pulmonary disease) J44.9 Nicotine dependence, cigarettes, uncomplicated F17.210 Allergic rhinitis J30.9
== END 2024-12-21 12:03 | disposition home or self-care (01) ==
LOC: HO.HPS 11:13
PROVIDERS: PCP Nurse Practitioner Family; Visit Provider Internal Medicine
DX: J44.9 Chronic obstructive pulmonary disease, unspecified (principal); F17.210 Nicotine dependence, cigarettes, uncomplicated; J30.9 Allergic rhinitis, unspecified
CPT/HCPCS: 99213

== ENCOUNTER → 2024-12-21 11:12 | Outpatient (BNVA) | payer MEDICARE, SELFPAY | PROVIDERS: PCP Nurse Practitioner Family; Visit Provider Internal Medicine | DX: J44.9 Chronic obstructive pulmonary disease, unspecified (principal); F17.210 Nicotine dependence, cigarettes, uncomplicated; J30.9 Allergic rhinitis, unspecified | CPT/HCPCS: 99212 ==

== ENCOUNTER 2024-12-23 14:04 | Outpatient (AMB) | payer MEDICARE, SELFPAY ==
[2024-12-23 14:21] VITALS: BP 140/80; PULSE 68; O2SAT 97; BMI 26.2
--- NOTE | 2024-12-23 14:21 | A.OFFVIS_ITS ---
Vital Signs 12/23/24 14:21 Height 5 ft 8 in Weight 172 lb 8 oz BMI 26.2 BP 140/80 H Blood Pressure Location Rt brachial Position Sitting Pulse 68 Pulse Source Pulse Oximeter Pulse Oximetry (%) 97 Oxygen Delivery Method Room Air Intake Visit Reasons: Discuss X-Ray Results Intake Note: Pain today 06/24 Flight Surgeon Required: No Accompanied by: Self / Same As Patient Allergies NICOTINE PATCH Adverse Reaction (Severe, Uncoded 12/21/24 11:25) REDNESS,BURNING HPI Comments Details: The patient is a 79-year-old male presenting with chronic pain management and chronic left knee pain. The patient reports that the pain in his left foot has been intermittent, with numbness and aching noted in the area. He received genicular injections last month which took longer than expected to provide relief, but eventually, the pain subsided, allowing improved mobility. The patient underwent a genicular nerve block on November 23, which initially provided minimal relief. However, over time, he experienced gradual improvement in his ability to walk without significant pain. He is interested to repeat diagnostic injections, however for potential Sprint PNS trial. Left foot x-ray findings revealed mild degenerative changes and arthritis in the big toe, with joint narrowing and bone spurs present at the medial first metatarsal and heel. The patient also has a small calcaneal spur consistent with his intermittent symptoms. US venous duplex showed no evidence of acute DVT in the bilateral lower extremities. The patient uses Tylenol and baby aspirin for pain management, and occasionally uses knee dressing and bracing for arthritis relief. PRIOR: The patient is a 79-year-old male presenting with chronic left knee pain. The pain began after a knee replacement surgery, during which a cortisone injection was administered two months post-surgery, which was later deemed inappropriate due to the risk of osteoporosis and loosening of the prosthesis. More recently, he underwent left diagnostic genicular nerve block that provided him minimal pain relief during 6 hour period post injection, with pain at baseline levels. The patient reports that the pain persists, particularly when engaging in activities such as walking or climbing stairs, although it decreases with rest. The patient also experiences left foot pain, which he describes as being associated with the knee pain. He has been using a compression brace on his foot that allows him to walk without a cane, improving his balance, although the pain remains. The foot pain is suspected to be related to the way he steps, potentially causing left knee pain. He also has chronic low back pain with left sided radicular symptoms with known spinal stenosis and had good relief with recent therapeutic ONI for back pain but continues with left knee pain. Past Procedures: 11/23/24: Left diagnostic GNB injection-30% pain relief with activities 09/21/24: Left L4-L5, L5-S1 TFESI-100% ongoing pain relief for back, continues with bilateral leg and left knee pain PRIOR Dr. Chang 11/23/24: [place] is very pleasant 79 y.o. gentleman who is today in my office with intention to receive intra-articular steroid injection into his knee. This is the knee which was replaced by Dr. Aguillon in the past. He reported today that he in the past received steroid injections into the knee before and after total knee replacement. I explained to the patient that injection of the steroids into the artificial knee could result in osteoporosis and loosening of the prosthesis positioned and need for more extended surgery to do a secondary knee replacement. I offered today the patient to proceed with x-ray guided left genicular nerve blocks. Patient agreed with the plan, will change the nature of the procedure today from intra-articular knee steroid injection to genicular nerve block on the left. The patient underwent EMG study that revealed left peroneal neuropathy, which may be contributing to the symptoms experienced in the lower extremities. Patient reports he is undergoing cardiac catheterization on 12/11/24 to rule out blockage per Cardiology. He continues to take daily aspirin 81 mg. Denies any recent cough, cold, infection, fever or any other significant changes in medical history since last office visit. Past Procedures: 09/21/24: Left L4-L5, L5-S1 TFESI-100% ongoing pain relief for back, continues with bilateral leg and left knee pain PRIOR: Patient presents today for follow up to discuss recent lumbar spine MRI results. Patient continues to experience significant low back pain on the right, especially when getting up from sitting position and left leg numbness with heaviness and weakness. He reports after previous left knee replacement, he developed numbness and heaviness in the left leg which has progressed to frequent episodes of numbness and balance issues. The symptoms include extensive numbness from the knee down to the front of foot, further exacerbated by prolonged sitting or any uneven walking surfaces that cause the patient's foot to fall asleep. Initial treatment at other pain clinics involved lumbar spinal injections which initially lasted for extended periods, but more recent injections provide diminished relief. He is hesitant towards additional back surgery but is willing to consider Neurosurgery evaluation at [facility] for minimally invasive decompression. Patient ambulates with slow antalgic gait in semi-flexed forward position without assistive devices. He notes that he has a lot work at home and cane or walker would be in his way. Denies any fever or chills, abdominal or groin pain, bladder or bowel dysfunction or saddle anesthesia. Reports left lower extremity weakness due to heaviness and numbness. - Onset and Timing: Chronic pain with significant symptoms after knee replacement. - Quality and Character: Numbness and sensation of the foot falling asleep. - Primary Location: Lower back and left leg, from knee to foot. - Exacerbating Factors: Sitting and walking. - Relieving Factors: Previously managed with injections. - Interfered Activities: Causes loss of balance, difficulty performing daily tasks. - Affect: Pain leads to physical instability and requires careful navigation when walking. - Analgesia: Injections provided previous relief but are now less efficacious - Adverse Effects: Recent injections less effective in managing symptoms. - Activities of Daily Living: Difficulty with balance and walking; requires careful navigation and support. - Aberrant Drug-Related Behaviors: No behaviors indicating medication misuse were mentioned. PRIOR: Patient is a pleasant 78 years old male with history of lumbar microdiscectomy x2 and left TKA, chronic low back pain, advanced lumbar disc degenerative disease and spondylosis, left shoulder arthritis (multiple cortisone shoulder injections), prostate cancer and current tobacco smoker, presents today for initial evaluation of acute on chronic low back pain with radiculopathy and left knee pain. Denies any recent trauma, injury or falls. Patient reports back pain has been present since late teenager years. Currently, his back pain is axial and also radiates into left knee and anterior and lateral taylor with associated stabbing, aching, pins and needles and burning sensations in his lower leg and foot. His walking capacity is limited to 10 min, standing 20-30 min with can or holding on to something. Reports most severe back pain with bending down and flexing forward. Reports anterior left knee pain without swelling, burning, or erythema. He is able to sit up to 30 min on soft surfaces. Patient states he often looses balance when getting up from sitting to standing due to increase in left leg and back pain. He cannot functional normally and wakes up frequently at night due to pain. He completed physical therapy in the past but cannot pursue PT at this time due to significant low back pain. Pain is rated 8-10/10. Patient has tried OTC medications and topicals but prefers to avoid medications. Denies any fever or chills, abdominal or groin pain, foot drop, bladder or bowel dysfunction or saddle anesthesia. He reports frequent episodes of dizziness with h/o first degree AV block and currently on atenolol which was recently decreased per Cardiology. Patient previously underwent multiple interventional treatments for back and knee pain at [facility] and [facility], as well as multiple cortisone knee injections by Dr. Aguillon at [facility]. Past Procedures at [facility]: 05/31/2014: Right L4-L5 Interlaminar ONI with immediate and complete pain relief 04/07/2018: Bilateral L4-L5 and L5-S1 facet injections 05/11/2018: Lumbar medial branch blocks 06/29/2019: Lumbar medial branch blocks [facility]: 11/30/2021: Lumbar ONI 12/11/2021: Right knee Euflexxa injection (1st injection) 12/21/2021: Right knee Euflexxa injection (2nd injection) 12/27/2021: Right knee Euflexxa injection (3rd injection) 03/15/2022: Knee injection 05/10/2022: Lumbar medial branch RFA 05/29/2022: Left knee cortisone injection Oswestry Low Back Disability Score=26 (severe disability) Location: Lower back radiates down LLE, left knee pain Duration: Chronic pain for many years, worsening for past 3 months Characteristics of symptom or complaint: Aching, shooting, burning, stabbing, shooting, numbness, tingling, sore Aggravating or associated factors: Walking, climbing stairs, bending, lifting, sitting to standing, movements Relieving factors: Back brace, Tylenol, heat/ice therapy, activity modifications Treatment: PT, knee and back injections, lumbar RFA, back surgery x2, left TKA PFSH Medical History Smoker Tubular adenoma of colon (~2010) Nicotine dependence, cigarettes, uncomplicated Dyslipidemia HTN (hypertension) AV bloc first degree Allergic rhinitis COPD (chronic obstructive pulmonary disease) Primary osteoarthritis of left knee Prostate cancer (~2018) Surgical History History of total left knee replacement (~2019) History of colonoscopy (~2010) History of prostate biopsy (~2018) History of partial colectomy (~2016) Status post lumbar microdiscectomy (~2002) Family History Mother Alzheimer disease Social History Housing: House Alcohol intake: current Alcohol intake frequency: 0-2 drinks per day Patient Tobacco Use Status: Current everyday Tobacco user Tobacco use type: Cigarette Cigarettes Per Day: 3 Years Smoked: 60 +/- e-Cigarette/Vaping Use: Never Used Second Hand Smoke Exposure: No service: No Current occupational status: retired Current occupation: Right Handed Cognitive needs: No Hearing needs: No Vision needs: No Review of Systems Const All systems reviewed & are unremarkable except as noted in HPI and below Physical Exam Vital Signs: Last Vital Signs Pulse 68 12/23/24 14:21 BP 140/80 H 12/23/24 14:21 Pulse Ox 97 12/23/24 14:21 Oxygen Delivery Method Room Air 12/23/24 14:21 BMI result Body Mass Index 26.2 General: Appears afebrile. Alert and oriented. Mood and affect appropriate. Follows and participates in conversation appropriately. Respiratory effort is unlabored. No cough. Able to transition from sit to stand unassisted. Ambulates with normal heel strike and toe off on the right, increased left knee pain with walking/climbing. General: Yes no CVA tenderness Back/Spine/Pelvis Back: no CVA tenderness Cervical Spine: cervical ROM normal and No Cervical spine tenderness Thoracic/Lumbar Spine: thoracic and lumbar spine normal to inspection, Thoracic/lumbar spine scar(s), Lasegue's sign positive on the left and diffuse, pain with thoraco-lumbar ROM (mild), paraspinal muscle tenderness, thoraco- lumbar ROM limited, Thoracic/lumbar scoliosis, No thoracic spinal tenderness and No lumbar spinal tenderness Sacroiliac joints: bilaterally nontender Extrem General: Yes capillary refill normal, Yes no clubbing, cyanosis or edema and Yes calf tenderness (intermittent with walking and at night) Left lower extremity: knee (Well healed scar. Mildly limited ROM. ) Details: normal to inspection, tenderness (anterior knee +allodynia) Location: of the patella, of the medial joint line and of the lateral joint line and crepitus; no swelling, no ecchymosis, no deformity and no unusual warmth Results Reviewed Results Reviewed: XR LUMBOSACRAL SPINE 05/04/24 CLINICAL INFORMATION: M54.50 - Low back pain, unspecified COMPARISON: 07/09/2018. TECHNIQUE: Three views of the lumbosacral spine. FINDINGS: There is a minimal left convex scoliosis, apex at L4. There is a normal lumbar lordosis. No fracture, compression deformity, traumatic subluxation, or suspicious bone lesion. There is a 2 mm degenerative retrolisthesis of L2 on L3, and L3 on L4. Moderate to severe disc degeneration spanning L3-S1. Associated facet degeneration at these levels. Soft tissues demonstrate diffuse vascular calcifications. There are fiducial markers in the inferior pelvis. IMPRESSION: 1. No acute findings lumbar spine. 2. Moderate spondylosis, most significant spanning L3-S1. XR KNEE, LEFT 03/29/21 CLINICAL INFORMATION: Left knee pain COMPARISON: September 08, 2020 FINDINGS: Patient is status post left total knee arthroplasty. Prosthetic components appear in good position. No acute fracture or dislocation is evident. No significant effusion is seen. No evidence of prosthetic loosening. IMPRESSION: Status post left total knee arthroplasty without significant abnormality appreciated. MR LUMBAR SPINE wo con 05/23/24 MR of the lumbar spine without contrast Comparison: CR/SR - XR LUMBAR SPINE 2-3V - 05/04/24 10:05 EST CR - LUMBAR SPINE 2TO 3 [id number] - 07/09/18 16:26 EDT MR - [place]UMBAR [place] [id number] - 04/05/14 14:37 EST Findings: 2 mm retrolisthesis of L2 on L3, degenerative. 3 mm retrolisthesis of L4 on L5, degenerative. There is a mild amount Modic type 1 change at L3/L4 and L5/S1 at the left aspect, also present on the prior study. Small cystic change and L4. Bone marrow signal is otherwise normal. No cord expansion or abnormal signal intensity. The conus medullaris terminates at L1, which is normal. The cauda equina is unremarkable. L1/L2: No disc herniation. Mild facet joint and ligamentum flavum hypertrophy. No central canal stenosis. No lateral recess stenosis. No foraminal stenosis. L2/L3: 5 mm disc bulge most prominent in the left subarticular zone. Moderate facet joint and ligamentum flavum hypertrophy. Fluid in the facet joints. Mild central canal stenosis. Mild right and severe left lateral recess stenosis. No right and mild left foraminal stenosis. L3/L4: 5 mm broad-based disc bulge with an annular fissure. Moderate facet joint and ligamentum flavum hypertrophy. Fluid in the left facet joint. [id number] central canal stenosis. Severe bilateral lateral recess stenosis. Moderate right [id number] left foraminal stenosis, similar to the prior study. L4/L5: 6 mm broad-based disc bulge with an annular fissure. Severe facet joint and ligamentum flavum hypertrophy. Moderate central canal stenosis. Severe bilateral lateral recess stenosis, greater on the left. Severe right and moderate left foraminal stenosis, similar to the prior study. L5/S1: Disc desiccation with a disc/osteophyte measuring 5 mm. Severe facet joint hypertrophy. Mild ligamentum flavum hypertrophy. Trace amount of fluid in the right facet joint. Mild central canal stenosis. Moderate to severe bilateral lateral recess stenosis. Mild right moderate to severe left foraminal stenosis, greater than on the prior study. Impression: Multilevel degenerative change, detailed above. XR FOOT, LEFT 11/26/24 CLINICAL INFORMATION: M79.672 - Pain in left foot COMPARISON: None available. TECHNIQUE: AP, lateral, and oblique views of the left foot. FINDINGS: Mild degenerative changes are present in the IP joint of the great toe with marginal osteophytes and mild narrowing. Minute marginal osteophyte is present in the medial first metatarsal head. There is a small plantar calcaneal spur. IMPRESSION: Mild degenerative changes Assessment & Plan Assessment & Plan (1) Lower back pain: Comment: chronic Code(s): M54.50 - Low back pain, unspecified Category: Medical (2) Left knee pain: Code(s): M25.562 - Pain in left knee Category: Medical (3) Lumbar post-laminectomy syndrome: Code(s): M96.1 - Postlaminectomy syndrome, not elsewhere classified Category: Medical (4) History of total left knee replacement: Onset Date: ~2019 Comment: (L[place]illon[place] [facility] [place] Code(s): Z96.652 - Presence of left artificial knee joint Category: Surgical Plan The plan includes performing a left diagnostic saphenous nerve block for Sprint PNS therapy, as discussed in the previous visit. The patient is advised to continue using Tylenol and gentle exercises to maintain joint mobility and prevent stiffness. Schedule Left diagnostic femoral nerve block with local and fluoroscopy. Expectations, risks and benefits were reviewed. Patient is aware he will be contacted to schedule this procedure. All questions and concerns have been answered and patient agreed with the plan. Follow up after injections and sooner as needed. Patient was informed and verbally consented to the use of an ambient scribe for clinic note documentation during this visit. Coding Level of Care Code Est Pt Level 4 (13598) Complex EM visit Add On G2211 Diagnoses Lower back pain M54.50 Left knee pain M25.562 Lumbar post-laminectomy syndrome M96.1 History of total left knee replacement Z96.652
== END 2024-12-23 15:01 | disposition home or self-care (01) ==
LOC: HO.PMC 14:05
PROVIDERS: PCP Nurse Practitioner Family; Visit Provider Nurse Practitioner Family
DX: M54.50 Low back pain, unspecified (principal); M25.562 Pain in left knee; M96.1 Postlaminectomy syndrome, not elsewhere classified; Z96.652 Presence of left artificial knee joint
CPT/HCPCS: 99214; G2211

== ENCOUNTER → 2024-12-23 14:04 | Outpatient (BNVA) | payer MEDICARE, SELFPAY | PROVIDERS: PCP Nurse Practitioner Family; Visit Provider Nurse Practitioner Family | DX: M54.50 Low back pain, unspecified (principal); M25.562 Pain in left knee; M96.1 Postlaminectomy syndrome, not elsewhere classified; Z96.652 Presence of left artificial knee joint; I10 Essential (primary) hypertension; Z72.0 Tobacco use; Z79.82 Long term (current) use of aspirin | CPT/HCPCS: 99212 ==

== ENCOUNTER 2024-12-31 12:33 | Outpatient (AMB) | payer MEDICARE, SELFPAY ==
[2024-12-31 12:53] VITALS: BP 116/56; PULSE 53; BMI 25.9
--- NOTE | 2024-12-31 12:53 | A.OFFVIS_ITS ---
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 by: spouse Allergies NICOTINE PATCH Adverse Reaction (Severe, Uncoded 12/21/24 11:25) REDNESS,BURNING Medication List - Last Reconciled 12/31/24 by SALOMON Avina albuterol sulfate 90 mcg/actuation (Ventolin HFA) 2 puffs inhalation Q4-6H PRN 90 days amlodipine 5 mg PO DAILY aspirin (Adult Low Dose Aspirin) 81 mg PO DAILY atenolol 25 mg PO DAILY atorvastatin 20 mg PO BEDTIME 90 days levothyroxine (Levoxyl) 25 mcg PO DAILY montelukast 10 mg PO DAILY 3 months nitroglycerin 0.4 mg sublingual Q5M PRN tamsulosin 0.4 mg PO BEDTIME HPI HPI fu card cath 12/14 (HS): Details: [place] is a 79-year-old male with past medical history of hypertension, hyperlipidemia, smoking, COPD, chest discomfort with prior abnormal nuclear stress test who recently underwent a cardiac catheterization showing nonobstructive circumflex stenosis who now presents for follow-up. Today he reports that he gets random pains in the chest region, nonexertional. Some areas are sore to palpation. He has some shortness of breath with activity which is unchanged recently. He he is working on smoking cessation. No PND, orthopnea or edema. No palpitations, lightheadedness, presyncope, syncope, falls. He reports light physical activity. Taking all meds as directed. Significant other is present. She reports [place] had prior history of myalgias with higher statin dose. [facility] Medical History Smoker Tubular adenoma of colon (~2010) Nicotine dependence, cigarettes, uncomplicated Dyslipidemia HTN (hypertension) AV bloc first degree Allergic rhinitis COPD (chronic obstructive pulmonary disease) Primary osteoarthritis of left knee Prostate cancer (~2018) Surgical History History of total left knee replacement (~2019) History of colonoscopy (~2010) History of prostate biopsy (~2018) History of partial colectomy (~2016) Status post lumbar microdiscectomy (~2002) Family History Mother Alzheimer disease Social History Housing: House Alcohol intake: current Alcohol intake frequency: 0-2 drinks per day Patient Tobacco Use Status: Current everyday Tobacco user Tobacco use type: Cigarette Cigarettes Per Day: 3 Years Smoked: 60 +/- e-Cigarette/Vaping Use: Never Used Second Hand Smoke Exposure: No service: No Current occupational status: retired Current occupation: Right Handed Cognitive needs: No Hearing needs: No Vision needs: No Review of Systems Const All systems reviewed & are unremarkable except as noted in HPI and below Denies daytime sleepiness, Denies difficulty sleeping, Denies snoring, Denies stops breathing during sleep and Denies weakness Card Denies chest pain, Denies rapid heart rate, Denies irregular heart rhythm, Denies claudication, Denies leg edema, Denies lightheadedness, Denies palpitations, Reports dyspnea, Reports dyspnea on exertion, Denies orthopnea, Denies paroxysmal nocturnal dyspnea and Denies slow heart rate Resp Denies cough, Reports dyspnea, Reports dyspnea on exertion and Denies snoring GI Reports no additional complaints, Denies hematochezia, Denies change in stool character and Denies dyspepsia Musc Denies abnormal gait, Denies muscle weakness and Denies numbness Neuro Denies abnormal gait, Denies numbness and Denies weakness Endo Denies palpitations Physical Exam Vital Signs: Last Vital Signs Pulse 53 12/31/24 12:53 BP 116/56 L 12/31/24 12:53 BMI result Body Mass Index 25.9 Const General: cooperative, healthy appearing, comfortable and no acute distress Orientation/consciousness: patient oriented x3 Neck Neck: Yes normal visual inspection Resp Effort & Inspection: normal respiratory effort Auscultation: clear to auscultation bilaterally, no rales, no rhonchi and no wheezes Cardio Rate: regular rate Rhythm: regular rhythm Heart sounds: S1 normal heart sound present, S2 normal heart sound present, no gallops, no murmurs and no rubs Neuro General: patient oriented x3 Extrem Other: right radial cath site with easily palpable right radial pulse, small bump at site, nontender, normal right hand assessment General: Yes normal to inspection, No no pedal edema and No calf tenderness Psych Appearance: grossly normal Mental Status: mental status grossly normal Speech and movement: Normal speech and movement present Assessment & Plan Assessment & Plan (1) Chest discomfort: Code(s): R07.89 - Other chest pain Category: Medical Plan: Reports of chest discomfort, currently atypical sounding. Cardiac risk factors of hypertension, hyperlipidemia, smoking. Nuclear stress test done 06/30/2024 shows mild intensity inferior apical and distal septal, possible PDA territory, EF 62%. He had cardiac catheterization 12/14/2024 showing mid left circumflex 60% stenosis, normal IFR. Test results reviewed with him. Right radial catheterization site well healed. Diagnosis of nonobstructive coronary artery disease reviewed. Continue with med management including aspirin 81 mg daily. Continue atorvastatin with ideal LDL goal less than 70. Most recent labs 11/16/2024 showed LDL 80. Prior myalgias with statin use. Will add Zetia 10 mg daily with fasting lipids in 2 months. Continue atenolol and amlodipine for good heart rate and blood pressure control. Continue physical activity as tolerated. Cardiology follow-up 6 months, sooner if needed. (2) Atherosclerotic cardiovascular disease: Code(s): I25.10 - Atherosclerotic heart disease of [place] coronary artery without angina pectoris Category: Medical Plan: Nonobstructive coronary artery disease as above. (3) Abnormal nuclear stress test: Code(s): R94.39 - Abnormal result of other cardiovascular function study Category: Medical Plan: As above (4) S/P cardiac cath: Comment: Cardiac catheterization 12/14/2024 left main, lad normal, mid left circumflex proximal 60% stenosis, CLARA 3 flow, IFR normal, RCA minimal irregularities Code(s): Z98.890 - Other specified postprocedural states Category: Surgical Plan: As above (5) HTN (hypertension): Code(s): I10 - Essential (primary) hypertension Category: Medical Plan: Blood pressure goal less than 130/80. Well controlled at present. Continue amlodipine and atenolol. (6) Dyslipidemia: Code(s): E78.5 - Hyperlipidemia, unspecified Category: Medical Plan: [place] LDL goal less than 70. Further discussed as above. Plan Time spent on chart review, documentation, interview and assessment Orders: Orders Lipid Panel 1 Month E78.5 - Hyperlipidemia, unspecified Medications: New ezetimibe (Zetia) 10 mg PO DAILY 30 tabs 5RF Coding Level of Care Code Est Pt Level 4 (11518) Complex EM visit Add On G2211 Diagnoses Chest discomfort R07.89 Atherosclerotic cardiovascular disease I25.10 Abnormal nuclear stress test R94.39 S/P cardiac cath Z98.890 HTN (hypertension) I10 Dyslipidemia E78.5 Time Spent (min) 34
== END 2024-12-31 13:27 | disposition home or self-care (01) ==
LOC: HO.HCS 12:33
PROVIDERS: PCP Nurse Practitioner Family; Visit Provider Nurse Practitioner Family
DX: R07.89 Other chest pain (principal); I25.10 Atherosclerotic heart disease of native coronary artery without angina pectoris; R94.39 Abnormal result of other cardiovascular function study; Z98.890 Other specified postprocedural states; I10 Essential (primary) hypertension; E78.5 Hyperlipidemia, unspecified
CPT/HCPCS: 99214; G2211

== ENCOUNTER → 2024-12-31 12:33 | Outpatient (BNVA) | payer MEDICARE, SELFPAY | PROVIDERS: PCP Nurse Practitioner Family; Visit Provider Nurse Practitioner Family | DX: R07.89 Other chest pain (principal); I25.10 Atherosclerotic heart disease of native coronary artery without angina pectoris; R94.39 Abnormal result of other cardiovascular function study; I10 Essential (primary) hypertension; E78.5 Hyperlipidemia, unspecified; Z98.890 Other specified postprocedural states | CPT/HCPCS: 99212 ==

== ENCOUNTER 2025-01-24 07:55 | Outpatient (AMB) | payer MEDICARE, SELFPAY ==
--- NOTE | 2025-01-24 07:57 | A.OFFPC_ITS ---
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 Accompanied by: Self / Same As Patient Allergies NICOTINE PATCH Adverse Reaction (Severe, Uncoded 01/24/25 08:25) REDNESS,BURNING Medication List - Last Reconciled 01/24/25 by Saroj Ortega [facility] albuterol sulfate 90 mcg/actuation (Ventolin HFA) 2 puffs inhalation Q4-6H PRN 90 days amlodipine 5 mg PO DAILY aspirin (Adult Low Dose Aspirin) 81 mg PO DAILY atenolol 25 mg PO DAILY atorvastatin (Lipitor) 40 mg PO BEDTIME levothyroxine (Levoxyl) 25 mcg PO DAILY montelukast 10 mg PO DAILY 3 months nitroglycerin 0.4 mg sublingual Q5M PRN tamsulosin 0.4 mg PO BEDTIME Tobacco use date assessed: 01/24/25 Fall risk assessment: No Falls in past year Last assessed Fall Risk: 01/24/25 Dental Screening Dental Screen Date: 01/24/25 Did you have a dental visit in the last 12 months?: No Did you have a dental problem in the last 6 months where you did not have access to dental care?: No Was dental information given to patient?: Patient has dentist HPI Pre op surgery on 02/23 HPI Details Chief Complaint The patient presents for a preoperative medical evaluation prior to bilateral cataract surgery. History of Present Illness The patient is a 79 year old male presenting with a preoperative evaluation for cataract surgery. He is scheduled to undergo the procedure for both eyes. The patient reports doing well except for some weakness in his left lower extremity, for which he is undergoing nerve ablations. He denies any recent signs or symptoms of infection, chest pain, increased shortness of breath, lymphadenopathy, or sore throat. Social History Health Maintenance - Preoperative evaluation for cataract s urgery. Review of Systems - General: Denies signs and symptoms of infection. - Cardiovascular: Denies chest pain. - Respiratory: Denies increased shortnes s of breath. - Musculoskeletal: Reports weakness in t he left lower extremity. - HEENT: Denies sore throat. - Lymphatic: Denies lymphadenopathy. Physical Exam General: Cooperative, healthy appearing, comfortable, no acute distress and well developed Orientation: Patient oriented x3 Limitations: No limitations Head: Normal to inspection Ears: Hearing grossly normal bilaterally Nose: Normal external nose present Face and sinus: Normal facial exam Eyes: Appearance normal, both eyes and all related structures Neck: Normal visual inspection and Yes full ROM, no lymphadenopathy noted Respiratory: Slightly coarse breath sounds, moving air bilaterally slightly diminished Cardiovascular: Regular rate and rhythm. Normal S1 and S2 GI: Normal to inspection. Soft to palpation and nontender Neuro: Patient oriented x3 Extremities: Left lower extremity weakness/lower back pain observed Results Plan 1. Preoperative Evaluation The patient is medically cleared for his bilateral cataract surgery from a clinical standpoint. Final clearance is pending the results of labs that will be ordered. 2. Left Lower Extremity Weakness The patient reports ongoing weakness in his left lower extremity. He is currently undergoing nerve ablations for this condition, and no changes to his current management were made. Discussion Notes I informed the patient that he is cleared for his upcoming bilateral cataract surgery from my standpoint. However, I also noted that we will await lab results before giving final clearance. I wished him luck with his procedure. Patient Instructions - You will need to have some lab work do ne. - You are cleared for your cataract surg clarisa on both eyes, but we are waiting for your lab results to give the final confirmation. [facility] Medical History Smoker Tubular adenoma of colon (~2010) Nicotine dependence, cigarettes, uncomplicated Dyslipidemia HTN (hypertension) AV bloc first degree Allergic rhinitis COPD (chronic obstructive pulmonary disease) Primary osteoarthritis of left knee Prostate cancer (~2018) Surgical History History of total left knee replacement (~2019) History of colonoscopy (~2010) History of prostate biopsy (~2018) History of partial colectomy (~2016) Status post lumbar microdiscectomy (~2002) Family History Mother Alzheimer disease Social History Housing: House Alcohol intake: current Alcohol intake frequency: 0-2 drinks per day Patient Tobacco Use Status: Current everyday Tobacco user Tobacco use type: Cigarette Cigarettes Per Day: 3 Years Smoked: 60 +/- Packs per year/per ci.00 e-Cigarette/Vaping Use: Never Used Second Hand Smoke Exposure: No service: No Current occupational status: retired Current occupation: Right Handed Cognitive needs: No Hearing needs: No Vision needs: No Questionnaire PHQ-9 Over the last 2 weeks, how often have you been bothered by any of the following problems? 1. Little interest or pleasure in doing things: several days 2. Feeling down, depressed, or hopeless: not at all 3. Trouble falling or staying asleep, or sleeping too much: not at all 4. Feeling tired or having little energy: not at all 5. Poor appetite or overeating: not at all 6. Feeling bad about yourself - or that you are a failure or have let yourself or your family down: not at all 7. Trouble concentrating on things, such as reading the newspaper or watching television: not at all 8. Moving or speaking so slowly that other people could have noticed. Or the opposite - being so fidgety or restless that you have been moving around a lot more than usual: not at all 9. Thoughts that you would be better off or of hurting yourself in some way: not at all Total score: 1 Depression Screening Interpretation: Negative Depression Screening Done: Yes 58778 - PHQ-9 Billing: Yes Source: Developed by Drs. Beltran Ken, Kathy Lindo, Oleg Duong and colleagues, with an educational nithya from [employer]. Thrive Questionnaire Date Thrive assessed: 10/27/24 I am a: Patient What is your living situation today?: I have a steady place to live Within the past 12 months, did the food you bought not last and you didn't have the money to get more?: I choose not to answer this question Within the past 12 months, did you worry whether your food would run out before you got money to buy more?: I choose not to answer this question Do you have trouble paying for medicines?: No Do you have trouble getting transportation to medical appointments?: No Do you have trouble paying your heating and electricity bill?: No Do you have trouble taking care of your child, family member or friend?: I choose not to answer this question Do you have trouble with day-to-day activities such as bathing, preparing meals, shopping, managing finances, etc.?: I choose not to answer this question Are you currently unemployed and looking for a job?: I choose not to answer this question Are you interested in more education?: No Please select the resources that you would like help with: Utilities Currently or been in a relationship where the following occur: I choose not to answer THRIVE Score: 0 TRAVIS-7 AMB Questionnaire TRAVIS-7 Date TRAVIS - 7 assessed: 11/03/24 Source: Developed by Drs. Beltran Ken, Kathy Lindo, Oleg Duong and colleagues, with an educational nithya from [employer]. Physical exam (Primary Care) Vital Signs: Last Vital Signs Temp 97.7 F 01/24/25 07:58 Pulse 58 01/24/25 07:58 Resp 16 01/24/25 07:58 BP 118/60 01/24/25 07:58 Pulse Ox 95 01/24/25 07:58 Oxygen Delivery Method Room Air 01/24/25 07:58 BMI result Body Mass Index 26.1 Tobacco/Smoking Status: Tobacco use Status Tobacco use date assessed 01/24/25 01/24/25 08:05 Patient Tobacco Use Status Current everyday Tobacco 01/24/25 08:05 Tobacco use type Cigarette 01/24/25 08:05 e-Cigarette/Vaping Use Never Used 01/24/25 08:05 PHQ-9: PHQ-9 Score PHQ-9: Total score 1 01/24/25 08:16 Depression Screening Interpretation: Negative Thrive Assessment: Date of Thrive Assessment Date Thrive assessed 10/27/24 01/24/25 08:05 Currently or been in a relationship where the following occur: I choose not to answer Coding Level of Care Code Est Pt Prev Care >65y(06024) Diagnoses Pre-op exam Z01.818 Additional Codes PHQ-9 - 73807 - PHQ-9 Billing: Yes ([id number]) Assessment & Plan Assessment & Plan (1) Pre-op exam: Code(s): Z01.818 - Encounter for other preprocedural examination Category: Medical Plan . Orders: Orders Complete Blood Count Auto Diff Today Z01.818 - Encounter for other preprocedural examination Comprehensive Met. Panel Today Z01.818 - Encounter for other preprocedural examination
[2025-01-24 07:58] VITALS: BP 118/60; PULSE 58; RESP 16; TEMP 36.5; O2SAT 95; BMI 26.1
== END 2025-01-24 09:21 | disposition home or self-care (01) ==
LOC: HO.HMCC 07:56
PROVIDERS: PCP Nurse Practitioner Family; Visit Provider Nurse Practitioner Family
DX: H26.9 Unspecified cataract (principal); Z01.818 Encounter for other preprocedural examination

== ENCOUNTER 2025-01-24 07:55 | Outpatient (REF) | payer MEDICARE, SELFPAY ==
[2025-01-24 10:18] LABS: MANUAL DIFF FLAG NO
[2025-01-24 10:33] LABS: Hematocrit 40.0 % (42.0-52.0); Hemoglobin 13.2 g/dl (14.0-18.0); Imm Gran Abs Auto 0.04 X10*3/uL (0.00-0.03); Imm Gran Pct Auto 0.5 % (0.0-0.4); Lymphocytes Absolute Auto 1.5 X10*3/uL (1.2-4.9); Mean Corpuscular HGB Conc 33.0 g/dl (31.0-36.0); Mean Corpuscular Hemoglobin 32.7 pg (27.0-33.0); Mean Corpuscular Volume 99.0 fL (80.0-98.0); NRBC Abs Auto 0.000 X10*3/uL (0.0-0.012); NRBC Pct Auto 0.0 /100WBC (0.0-0.2); Platelet Count 344 X10*3/uL (160-400); Red Blood Count 4.04 X10*6/uL (4.60-5.80); White Blood Count 8.3 X10*3/uL (4.8-10.8)
[2025-01-24 10:48] LABS: Alanine Aminotransferase 9 U/L (0-40); Albumin Level 4.0 g/dL (3.5-5.0); Alkaline Phosphatase 67 U/L (39-117); Anion Gap 11 (12-20); Aspartate Amino Transferase 22 U/L (5-37); Blood Urea Nitrogen 10 mg/dL (9-16); Calcium 9.2 mg/dL (8.4-10.2); Carbon Dioxide 24 mmol/L (22-29); Chloride 104 mmol/L (96-108); Estimated Glomerular Filt Rate > 60; Potassium 4.6 mmol/L (3.3-5.1); Sodium 134 mmol/L (135-145); Total Protein 6.4 g/dL (6.5-8.0)
== END 2025-01-24 07:56 | disposition home or self-care (01) ==
LOC: HO.HMGCLDS 07:55
PROVIDERS: Nurse Practitioner Family; PCP Nurse Practitioner Family; Visit Provider Nurse Practitioner Family
DX: Z01.818 Encounter for other preprocedural examination (principal); I25.10 Atherosclerotic heart disease of native coronary artery without angina pectoris; R79.89 Other specified abnormal findings of blood chemistry; R53.1 Weakness; H26.9 Unspecified cataract
CPT/HCPCS: 36415; 80053; 80076; 82248; 84443; 85025; 86376; 96127; 99212

== ENCOUNTER 2025-02-01 06:31 | Outpatient (REF) | payer MEDICARE, SELFPAY | END 2025-02-01 06:32 | disposition home or self-care (01) | LOC: CF 06:31 | PROVIDERS: Visit Provider Anesthesiology | DX: M25.562 Pain in left knee (principal); Z96.652 Presence of left artificial knee joint | CPT/HCPCS: J2795 ==

== ENCOUNTER 2025-02-01 13:01 | Outpatient (AMB) | payer MEDICARE, SELFPAY ==
[2025-02-01 13:02] VITALS: BP 137/63; PULSE 51; RESP 16; O2SAT 96; BMI 26.1
--- NOTE | 2025-02-01 13:02 | MHC.OFFVIS ---
Vital Signs 02/01/25 13:02 02/01/25 13:59 Height 5 ft 8 in Weight 172 lb BMI 26.1 BP 137/63 141/69 H Blood Pressure Location Lt brachial Lt brachial Position Sitting Sitting Respiration 16 16 Pulse 51 59 Pulse Source Pulse Oximeter Pulse Oximeter Pulse Oximetry (%) 96 97 Oxygen Delivery Method Room Air Room Air Intake Visit Reasons: Left Diagnostic Femoral Nerve Block Allergies NICOTINE PATCH Adverse Reaction (Severe, Uncoded 01/24/25 08:25) REDNESS,BURNING PFSH Medical History Hypothyroid Smoker Tubular adenoma of colon (~2010) Nicotine dependence, cigarettes, uncomplicated Dyslipidemia HTN (hypertension) AV bloc first degree Allergic rhinitis COPD (chronic obstructive pulmonary disease) Primary osteoarthritis of left knee Prostate cancer (~2018) Surgical History History of total left knee replacement (~2019) History of colonoscopy (~2010) History of prostate biopsy (~2018) History of partial colectomy (~2016) Status post lumbar microdiscectomy (~2002) Family History Mother Alzheimer disease Social History Housing: House Alcohol intake: current Alcohol intake frequency: 0-2 drinks per day Patient Tobacco Use Status: Current everyday Tobacco user Tobacco use type: Cigarette Cigarettes Per Day: 3 Years Smoked: 60 +/- e-Cigarette/Vaping Use: Never Used Second Hand Smoke Exposure: No service: No Current occupational status: retired Current occupation: Right Handed Cognitive needs: No Hearing needs: No Vision needs: No Physical Exam Vital Signs: Last Vital Signs Pulse 59 02/01/25 13:59 Resp 16 02/01/25 13:59 BP 141/69 H 02/01/25 13:59 Pulse Ox 97 02/01/25 13:59 Oxygen Delivery Method Room Air 02/01/25 13:59 BMI result Body Mass Index 26.1 Assessment & Plan Assessment & Plan (1) Left knee pain: Code(s): M25.562 - Pain in left knee Category: Medical Plan Left diagnostic femoral nerve block. Informed consent was thoroughly explained to the patient, the risks, benefits and alternatives were discussed with the patient and informed consent was obtained, patient was placed in the supine position with a tovel covering his private parts. Time out was performed delineating correct site and side of the procedure , name and of the patient, patient participated in time out procedure. The left groin of the patient was prepped with chloroprep and draped with sterile self-adhesive utility towels. Sterilely draped US probe was brought over the operating field and an ultrasound picture was obtained on the screen. Femoral artery and femoral nerve were demonstrated on the screen.After that 100 mm Echostim needle was inserted extraanatomically lateral to the US probe and it was advanced to the vicinity of the femoral nerve under live US view. When the tip of the needle penetrated fascia and was positioned next to the femoral nerve a trial injection of normal saline was performed demonstrating perineural spread of the NS. After that 6 ml of ropivacaine 0.5% was injected into the needle with frequent aspiration , no resistance to injectable solution was observed. The needle was withdrawn and bandaid was applied. The patient tolerated procedure well. Coding Level of Care Code Procedure Only Diagnoses Left knee pain M25.562
[2025-02-01 13:59] VITALS: BP 141/69; PULSE 59; RESP 16; O2SAT 97
== END 2025-02-01 13:53 | disposition home or self-care (01) ==
LOC: HO.PMCPRC 13:01
PROVIDERS: PCP Nurse Practitioner Family; Visit Provider Anesthesiology
DX: M25.562 Pain in left knee (principal)
CPT/HCPCS: 64447

== ENCOUNTER 2025-02-03 11:20 | Outpatient (AMB) | payer MEDICARE, SELFPAY ==
--- NOTE | 2025-02-03 11:23 | MHC.OFFVIS ---
Vital Signs 02/03/25 11:27 Height 5 ft 8 in Weight 174 lb BMI 26.5 BP 130/85 Blood Pressure Location Rt brachial Position Sitting Pulse 62 Pulse Source Pulse Oximeter Pulse Oximetry (%) 98 Oxygen Delivery Method Room Air Intake Visit Reasons: S/P Left Diagnostic Femoral Nerve Block Intake Note: Pain today 3-4/10 Informal Waiter/Waitress Required: No Accompanied by: Self / Same As Patient Allergies NICOTINE PATCH Adverse Reaction (Severe, Uncoded 01/24/25 08:25) REDNESS,BURNING HPI Comments Details: The patient is a 79 year old individual with a history of left knee replacement, chronic left knee pain, and lumbar post-laminectomy syndrome, presenting for a follow-up visit after a diagnostic left femoral nerve block. The patient reports that the block provided 80% pain relief for approximately 6 hours, with the pain level decreasing to a 2 out of 10, particularly in the morning, though it never completely resolved. After the effects of the block wore off, the pain returned to baseline. He continues to experience some relief at rest however with walking or climbing stairs his levels reach 6-7/10. The patient has a history of chronic back pain and previously used a TENS unit. He is interested to proceed with Sprint PNS trial for chronic left knee pain. The patient uses a cane when required to walk for any significant distance. The patient is scheduled for an upcoming eye procedure for cataracts, which will delay further pain management interventions until March 2025. The patient underwent EMG study in the recent past that revealed left peroneal neuropathy, which may be contributing to the symptoms experienced in the lower extremities. He also had cardiac catheterization on 12/11/24 showing nonobstructive circumflex stenosis with cardiac follow ups every 6 months and continues to take daily aspirin 81 mg and lipitor. Denies any recent cough, cold, infection, fever or any other significant changes in medical history since last office visit. [place] [facility] [place]: 02/01/25: Left Diagnostic Femoral Nerve Block-80% pain relief for 6 hours, ongoing mild relief >2 days 11/23/24: Left diagnostic GNB injection-30% pain relief with activities 09/21/24: Left L4-L5, L5-S1 TFESI-100% ongoing pain relief for back, continues with bilateral leg and left knee pain Past Procedures at [facility]: 05/31/2014: Right L4-L5 Interlaminar ONI with immediate and complete pain relief 04/07/2018: Bilateral L4-L5 and L5-S1 facet injections 05/11/2018: Lumbar medial branch blocks 06/29/2019: Lumbar medial branch [place] [facility] [place] [facility]: 11/30/2021: Lumbar ONI 12/11/2021: Right knee Euflexxa injection (1st injection) 12/21/2021: Right knee Euflexxa injection (2nd injection) 12/27/2021: Right knee Euflexxa injection (3rd injection) 03/15/2022: Knee injection 05/10/2022: Lumbar medial branch RFA 05/29/2022: Left knee cortisone injection [facility] Medical History Hypothyroid Smoker Tubular adenoma of colon (~2010) Nicotine dependence, cigarettes, uncomplicated Dyslipidemia HTN (hypertension) AV bloc first degree Allergic rhinitis COPD (chronic obstructive pulmonary disease) Primary osteoarthritis of left knee Prostate cancer (~2018) Surgical History History of total left knee replacement (~2019) History of colonoscopy (~2010) History of prostate biopsy (~2018) History of partial colectomy (~2016) Status post lumbar microdiscectomy (~2002) Family History Mother Alzheimer disease Social History Housing: House Alcohol intake: current Alcohol intake frequency: 0-2 drinks per day Patient Tobacco Use Status: Current everyday Tobacco user Tobacco use type: Cigarette Cigarettes Per Day: 3 Years Smoked: 60 +/- e-Cigarette/Vaping Use: Never Used Second Hand Smoke Exposure: No service: No Current occupational status: retired Current occupation: Right Handed Cognitive needs: No Hearing needs: No Vision needs: No Review of Systems Const All systems reviewed & are unremarkable except as noted in HPI and below Physical Exam Vital Signs: Last Vital Signs Pulse 62 02/03/25 11:27 BP 130/85 02/03/25 11:27 Pulse Ox 98 02/03/25 11:27 Oxygen Delivery Method Room Air 02/03/25 11:27 BMI result Body Mass Index 26.5 General: Appears afebrile. Alert and oriented. Mood and affect appropriate. Follows and participates in conversation appropriately. Respiratory effort is unlabored. No cough. Able to transition from sit to stand unassisted. Ambulates with normal heel strike and toe off on the right, increased left knee pain with walking/climbing. Extrem General: Yes capillary refill normal, Yes no clubbing, cyanosis or edema and Yes no calf tenderness Left lower extremity: knee (Well healed scar. Mildly limited ROM. ) Details: normal to inspection, tenderness (anterior knee +allodynia) Location: of the patella, of the medial joint line and of the lateral joint line and crepitus; no swelling, no ecchymosis, no deformity and no unusual warmth Results Reviewed Results Reviewed: XR LUMBOSACRAL SPINE 05/04/24 CLINICAL INFORMATION: M54.50 - Low back pain, unspecified COMPARISON: 07/09/2018. TECHNIQUE: Three views of the lumbosacral spine. FINDINGS: There is a minimal left convex scoliosis, apex at L4. There is a normal lumbar lordosis. No fracture, compression deformity, traumatic subluxation, or suspicious bone lesion. There is a 2 mm degenerative retrolisthesis of L2 on L3, and L3 on L4. Moderate to severe disc degeneration spanning L3-S1. Associated facet degeneration at these levels. Soft tissues demonstrate diffuse vascular calcifications. There are fiducial markers in the inferior pelvis. IMPRESSION: 1. No acute findings lumbar spine. 2. Moderate spondylosis, most significant spanning L3-S1. XR KNEE, LEFT 03/29/21 CLINICAL INFORMATION: Left knee pain COMPARISON: September 08, 2020 FINDINGS: Patient is status post left total knee arthroplasty. Prosthetic components appear in good position. No acute fracture or dislocation is evident. No significant effusion is seen. No evidence of prosthetic loosening. IMPRESSION: Status post left total knee arthroplasty without significant abnormality appreciated. MR LUMBAR SPINE wo con 05/23/24 MR of the lumbar spine without contrast Comparison: CR/SR - XR LUMBAR SPINE 2-3V - 05/04/24 10:05 EST CR - LUMBAR SPINE 2TO 3 [id number] - 07/09/18 16:26 EDT MR - [place] [id number] - 04/05/14 14:37 EST Findings: 2 mm retrolisthesis of L2 on L3, degenerative. 3 mm retrolisthesis of L4 on L5, degenerative. There is a mild amount Modic type 1 change at L3/L4 and L5/S1 at the left aspect, also present on the prior study. Small cystic change and L4. Bone marrow signal is otherwise normal. No cord expansion or abnormal signal intensity. The conus medullaris terminates at L1, which is normal. The cauda equina is unremarkable. L1/L2: No disc herniation. Mild facet joint and ligamentum flavum hypertrophy. No central canal stenosis. No lateral recess stenosis. No foraminal stenosis. L2/L3: 5 mm disc bulge most prominent in the left subarticular zone. Moderate facet joint and ligamentum flavum hypertrophy. Fluid in the facet joints. Mild central canal stenosis. Mild right and severe left lateral recess stenosis. No right and mild left foraminal stenosis. L3/L4: 5 mm broad-based disc bulge with an annular fissure. Moderate facet joint and ligamentum flavum hypertrophy. Fluid in the left facet joint. [id number] central canal stenosis. Severe bilateral lateral recess stenosis. Moderate right [id number] left foraminal stenosis, similar to the prior study. L4/L5: 6 mm broad-based disc bulge with an annular fissure. Severe facet joint and ligamentum flavum hypertrophy. Moderate central canal stenosis. Severe bilateral lateral recess stenosis, greater on the left. Severe right and moderate left foraminal stenosis, similar to the prior study. L5/S1: Disc desiccation with a disc/osteophyte measuring 5 mm. Severe facet joint hypertrophy. Mild ligamentum flavum hypertrophy. Trace amount of fluid in the right facet joint. Mild central canal stenosis. Moderate to severe bilateral lateral recess stenosis. Mild right moderate to severe left foraminal stenosis, greater than on the prior study. Impression: Multilevel degenerative change, detailed above. XR FOOT, LEFT 11/26/24 CLINICAL INFORMATION: M79.672 - Pain in left foot COMPARISON: None available. TECHNIQUE: AP, lateral, and oblique views of the left foot. FINDINGS: Mild degenerative changes are present in the IP joint of the great toe with marginal osteophytes and mild narrowing. Minute marginal osteophyte is present in the medial first metatarsal head. There is a small plantar calcaneal spur. IMPRESSION: Mild degenerative changes Assessment & Plan Assessment & Plan (1) Left knee pain: Code(s): M25.562 - Pain in left knee Category: Medical (2) Lumbar post-laminectomy syndrome: Code(s): M96.1 - Postlaminectomy syndrome, not elsewhere classified Category: Medical (3) History of total left knee replacement: Onset Date: ~2019 Comment: ([place] [facility] [facility] [place] Code(s): Z96.652 - Presence of left artificial knee joint Category: Surgical Plan Given the successful diagnostic left femoral nerve block, which provided 80% pain relief, the plan is to proceed with a peripheral nerve stimulator trial for chronic left knee pain. This trial involves the placement of a percutaneous lead in the proximity of left femoral nerve for two months (eight weeks), during which the patient can identify the optimal stimulation settings for pain control. Schedule left femoral nerve sprint PNS placement with fluoroscopy and local anesthesia. Expectations, risks and benefits were reviewed. Patient is aware he will be contacted to schedule this procedure. The procedure will be scheduled for March to accommodate the patient's upcoming cataract surgery in February. The primary focus of treatment is the left knee pain at this time. Management of the patient's chronic back pain, which would first require diagnostic injections, will be considered after assessing the response to the peripheral nerve stimulator for the knee. All questions and concerns have been answered and patient agreed with the treatment plan. Follow up after Sprint PNS placement and sooner as needed. Patient was informed and verbally consented to the use of an ambient scribe for clinic note documentation during this visit. Coding Level of Care Code Est Pt Level 3 (70811) Complex EM visit Add On G2211 Diagnoses Left knee pain M25.562 Lumbar post-laminectomy syndrome M96.1 History of total left knee replacement Z96.652
[2025-02-03 11:27] VITALS: BP 130/85; PULSE 62; O2SAT 98; BMI 26.5
== END 2025-02-03 11:52 | disposition home or self-care (01) ==
LOC: HO.PMC 11:21
PROVIDERS: PCP Nurse Practitioner Family; Visit Provider Nurse Practitioner Family
DX: M25.562 Pain in left knee (principal); M96.1 Postlaminectomy syndrome, not elsewhere classified; Z96.652 Presence of left artificial knee joint
CPT/HCPCS: 99213; G2211

== ENCOUNTER → 2025-02-03 11:20 | Outpatient (BNVA) | payer MEDICARE, SELFPAY | PROVIDERS: PCP Nurse Practitioner Family; Visit Provider Nurse Practitioner Family | DX: M25.562 Pain in left knee (principal); G89.29 Other chronic pain; M96.1 Postlaminectomy syndrome, not elsewhere classified; Z96.652 Presence of left artificial knee joint | CPT/HCPCS: 99212 ==

== ENCOUNTER 2025-02-21 08:27 | Outpatient (REF) | payer MEDICARE, SELFPAY ==
[2025-02-21 11:10] LABS: Anion Gap 9 (12-20); Blood Urea Nitrogen 11 mg/dL (9-16); Calcium 9.3 mg/dL (8.4-10.2); Carbon Dioxide 26 mmol/L (22-29); Chloride 102 mmol/L (96-108); Estimated Glomerular Filt Rate > 60; Potassium 4.2 mmol/L (3.3-5.1); Sodium 133 mmol/L (135-145)
[2025-02-21 11:21] LABS: Hematocrit 41.5 % (42.0-52.0); Hemoglobin 13.7 g/dl (14.0-18.0); Mean Corpuscular HGB Conc 33.0 g/dl (31.0-36.0); Mean Corpuscular Hemoglobin 32.2 pg (27.0-33.0); Mean Corpuscular Volume 97.6 fL (80.0-98.0); NRBC Abs Auto 0.000 X10*3/uL (0.0-0.012); NRBC Pct Auto 0.0 /100WBC (0.0-0.2); Platelet Count 323 X10*3/uL (160-400); Red Blood Count 4.25 X10*6/uL (4.60-5.80); White Blood Count 7.1 X10*3/uL (4.8-10.8)
== END 2025-02-21 08:28 | disposition home or self-care (01) ==
LOC: HO.HMGCLDS 08:27
PROVIDERS: PCP Nurse Practitioner Family; Visit Provider Internal Medicine
DX: I25.10 Atherosclerotic heart disease of native coronary artery without angina pectoris (principal)
CPT/HCPCS: 36415; 80048; 85027